=== PATIENT | male | born 1970 | race Caucasian/White ===

== ENCOUNTER 2018-06-09 09:07 | Emergency (ER) | payer SELFPAY ==
[2018-06-09] MEDS ORDERED: KETOROLAC TROMETHAMINE 60 MG/2 ML SDV IM ONE (09:57)
[2018-06-09] MEDS ORDERED: MORPHINE SULFATE 10 MG/ML INJ IM ONE (09:57)
[2018-06-09] MEDS ORDERED: ONDANSETRON 4 MG TAB.RAPDIS PO ONE (09:57)
[2018-06-09] MEDS ORDERED: ALPRAZOLAM 0.5 MG TABLET PO ONE (09:57)
--- NOTE | 2018-06-09 10:17 | ER Document Report ---
ED General Pain - General Chief Complaint: Back Pain Stated Complaint: BACK PAIN Time Seen by Provider: 06/09/18 09:26 Mode of Arrival: Ambulatory Information source: Patient TRAVEL OUTSIDE OF THE [place] IN LAST 30 DAYS: No - HPI Notes: Patient is a 47-year-old white male history of diet-controlled diabetes, hypertension and chronic lower back pain presents to the emergency department with report of worsening lower back pain over the last couple weeks. The patient states he was seen earlier this week and had a CT scan performed of his lumbar spine at [facility] in [facility] And was told they did not see anything significant, but he was told he would most likely need a follow-up MRI of his back. The patient was given a prednisone taper but denies this helping his discomfort. He reports he has been taking less methadone than normal, stating he only had one methadone today where as he normally takes 80 mg daily, and he reports only taking 40 mg yesterday and maybe had taken less the previous few days because he stated he had an upset stomach with mild nausea and diarrhea which he attributed to the prednisone. The patient also reports generalized myalgias and insomnia and worsening of his pain. He denies any incontinence. He states he has a chronic left greater than right lower extremity numbness. He denies any abdominal pain or chest pain or difficulty breathing. He denies any significant recent injury. Medications methadone and omeprazole oxycodone lisinopril hydrochlorothiazide. Patient also follows up with [facility] for psychiatric reasons. Patient also reports some recent increased stress related to his estranged moving back in with him. - Related Data Allergies/Adverse Reactions: bupropion [Bupropion] Adverse Reaction (Mild, Verified 06/09/18 09:10) eszopiclone [From Lunesta] Adverse Reaction (Mild, Verified 06/09/18 09:10) fluoxetine HCl [From Symbyax] Adverse Reaction (Mild, Verified 06/09/18 09:10) gabapentin [From Neurontin] Adverse Reaction (Mild, Verified 06/09/18 09:10) olanzapine [From Symbyax] Adverse Reaction (Mild, Verified 06/09/18 09:10) oxycodone HCl [From OxyContin] Adverse Reaction (Unknown, Verified 06/09/18 09: 10) surgical tape Adverse Reaction (Uncoded 05/13/16 23:00) Past Medical History - General Information source: Patient - Social History Smoking Status: Never Smoker Frequency of alcohol use: None Drug Abuse: None Lives with: Family Family History: None, Reviewed & Not Pertinent Patient has suicidal ideation: No Patient has homicidal ideation: No - Past Medical History Cardiac Medical History: Reports: Hx Hypercholesterolemia Pulmonary Medical History: Reports: Hx Bronchitis - chronic, Hx COPD Neurological Medical History: Reports: Hx Seizures Endocrine Medical History: Reports: Hx Diabetes Mellitus Type 1, Hx Diabetes Mellitus Type 2 Renal/ Medical History: Reports: Hx Kidney Stones. Denies: Hx Peritoneal Dialysis GI Medical History: Reports: Hx Gastroesophageal Reflux Disease Psychiatric Medical History: Reports: Hx Bipolar Disorder, Hx Depression Past Surgical History: Reports: Hx Cholecystectomy, Hx Orthopedic Surgery - spinal fusion 2001 - Immunizations Immunizations up to date: Yes Hx Diphtheria, Pertussis, Tetanus Vaccination: Yes Review of Systems - Review of Systems Notes: REVIEW OF SYSTEMS: CONSTITUTIONAL : Denies fever, chills, or sweats. EENT: Denies eye, ear, throat, or mouth pain or symptoms. Denies nasal or sinus congestion or discharge. Denies throat, tongue, or mouth swelling or difficulty swallowing. CARDIOVASCULAR: Denies chest pain. Denies palpitations or racing or irregular heart beat. Denies ankle edema. RESPIRATORY: Denies cough, cold, or chest congestion. Denies shortness of breath, difficulty breathing, or wheezing. GASTROINTESTINAL: Denies abdominal pain or distention. Denies vomiting. Denies blood in vomitus, stools, or per rectum. Denies black, tarry stools. Denies constipation. GENITOURINARY: Denies difficulty urinating, painful urination, burning, frequency, blood in urine, or discharge. MUSCULOSKELETAL: Denies neck pain or stiffness. Denies joint pain or swelling. SKIN: Denies rash, lesions or sores. HEMATOLOGIC : Denies easy bruising or bleeding. LYMPHATIC: Denies swollen, enlarged glands. NEUROLOGICAL: Denies confusion or altered mental status. Denies passing out or loss of consciousness. Denies dizziness or lightheadedness. Denies headache. Denies weakness or paralysis or loss of use of either side. Denies problems with gait or speech. Denies seizures. PSYCHIATRIC: Denies depression, suicidal ideation, or homicidal ideation. ALL OTHER SYSTEMS REVIEWED AND NEGATIVE. Dictation was performed using [employer] recognition software Physical Exam - Vital signs Vitals: Temp Pulse Resp BP Pulse Ox 98.2 F 120 H 18 137/80 H 98 06/09/18 09:15 06/09/18 09:15 06/09/18 09:15 06/09/18 09:15 06/09/18 09:15 - Notes Notes: PHYSICAL EXAMINATION: GENERAL: Well-appearing, well-nourished and in no acute distress. HEAD: Atraumatic, normocephalic. EYES: Pupils equal round and reactive to light, extraocular movements intact, sclera anicteric, conjunctiva are normal. ENT: Nares patent, oropharynx clear without exudates. Moist mucous membranes. NECK: Normal range of motion, supple without lymphadenopathy LUNGS: Breath sounds clear to auscultation bilaterally and equal. No wheezes rales or rhonchi. HEART: Regular rate and rhythm without murmurs ABDOMEN: Soft, nontender, nondistended abdomen. No guarding, no rebound. No masses appreciated. Musculoskeletal: no pitting or edema. No cyanosis. Patient has pain appreciated through the lower lumbar spine along L4 and L5 into S1. There is no bony deformity or crepitance noted. No CVA tenderness. NEUROLOGICAL: Cranial nerves grossly intact. Normal speech, normal gait. Normal motor exams. No saddle anesthesia. The patient describes sensory deficit down the left greater than right leg. PSYCH: Normal mood, normal affect. SKIN: Warm, Dry, normal turgor, no rashes or lesions noted. Course - Re-evaluation Re-evalutation: 06/09/18 12:21 Lab studies looked appropriate besides a very mild dehydration. No hyperglycemia and potassium was normal. After morphine, Toradol and Xanax, the patient had adequate relief of his discomfort. The patient already has a pain management contract and will follow up with this. He is instructed to have a follow-up outpatient MRI. There is no suggestion for cauda equina syndrome on current examination. Findings fit for narcotic withdrawal syndrome related to taking less methadone. 06/09/18 12:22 - Vital Signs Vital signs: Temp Pulse Resp BP Pulse Ox 98.2 F 120 H 18 137/80 H 98 06/09/18 09:15 06/09/18 09:15 06/09/18 09:15 06/09/18 09:15 06/09/18 09:15 - Laboratory Result Diagrams: 06/09/18 10:19 Laboratory results interpreted by me: 06/09/18 10:19 Chloride 97 L BUN 24 H ALT 87 H Discharge - Discharge Clinical Impression: Narcotic withdrawal Back pain Qualifiers: Back pain location: low back pain Chronicity: chronic Back pain laterality: midline Sciatica presence: with sciatica Sciatica laterality: sciatica of left side Qualified Code(s): M54.42 - Lumbago with sciatica, left side; G89.29 - Other chronic pain; G89.29 - Other chronic pain Condition: Stable Disposition: HOME, SELF-CARE Instructions: Low Back Pain ([facility]) Additional Instructions: Take your methadone regularly. Follow-up with Dr. Wright to arrange a MRI of the lumbar spine to better evaluate the cause of your pain and radiculopathy. You may take Imodium as needed for diarrhea. Drink plenty of fluids. Prescriptions: RX: Ibuprofen 800 mg PO Q8HP PRN #60 tablet PRN Reason: Methocarbamol [Robaxin 750 mg Tablet] 750 mg PO Q8HP PRN #30 tablet PRN Reason: Referrals: SALAS WRIGHT MD [Primary Care Provider] - Follow up as needed
[2018-06-09 11:00] LABS: ALANINE AMINOTRANSFERASE 87 U/L (21-72); ALBUMIN 4.9 g/dL (3.5-5.0); ALKALINE PHOSPHATASE 72 U/L (38-126); ANION GAP 14 (5-19); ASPARTATE AMINO TRANSFERASE 50 U/L (17-59); BILIRUBIN,DIRECT 0.2 mg/dL (0.0-0.4); BILIRUBIN,TOTAL 1.1 mg/dL (0.2-1.3); BLOOD UREA NITROGEN 24 mg/dL (7-20); CALCIUM 9.9 mg/dL (8.4-10.2); CARBON DIOXIDE 26 mmol/L (22-30); CHLORIDE 97 mmol/L (98-107); GLUCOSE 98 mg/dL (75-110); POTASSIUM 4.1 mmol/L (3.6-5.0); SODIUM 137.2 mmol/L (137-145)
[2018-06-09] MEDS ORDERED: LIDOCAINE 5% (700 MG) TRANSDERMAL ADH..PATCH TP ONE (12:55)
[2018-06-09 13:02] VITALS: BP 111/64
== END 2018-06-09 13:02 | disposition home or self-care (01) ==
LOC: ER 09:07
DX: F11.23 Opioid dependence with withdrawal (principal); G89.29 Other chronic pain; M54.5 Low back pain; E11.9 Type 2 diabetes mellitus without complications; I10 Essential (primary) hypertension; E78.00 Pure hypercholesterolemia, unspecified; Z87.442 Personal history of urinary calculi; Z90.49 Acquired absence of other specified parts of digestive tract
CPT/HCPCS: 99284; 96372; 36415; 80053; J1885; S0119; J2270

== ENCOUNTER 2018-07-07 17:24 | Emergency (ER) | payer SELFPAY ==
[2018-07-07] MEDS ORDERED: KETOROLAC TROMETHAMINE 60 MG/2 ML SDV IM ONE (19:13)
[2018-07-07] MEDS ORDERED: DEXAMETHASONE SOD PHOS INJ 10 MG/1 ML VIAL IM ONE (19:13)
--- NOTE | 2018-07-07 19:13 | ER Document Report ---
ED Neck/Back Problem - General Chief Complaint: Back Pain Stated Complaint: BACK PAIN Time Seen by Provider: 07/07/18 19:03 Mode of Arrival: Ambulatory Information source: Patient Notes: 47-year-old male presented ED for complaint of spine and back pain. He claims he has a long history of chronic back pain. He states his been much worse for the last couple months. He states he has spinal stenosis after his back surgery. He came to seek medical attention for this worsening back pain today. He denies any recent injuries or falls. He claims he takes methadone for chronic pain with no relief. Patient was alert oriented respirations regular and unlabored speaking in full sentences and able to walk with a steady gait. He denies any loss of control of bowel bladder or any saddle anesthesia. TRAVEL OUTSIDE OF THE [place] IN LAST 30 DAYS: No - HPI Patient complains to provider of: Lower back Onset: Other - Chronic worse over the last couple days Onset: Chronic Timing: Still present Quality of pain: Burning, Sharp, Throbbing Severity: Severe Pain Level: 5 Recent injury: No Associated symptoms: Radiation to leg, Upper back pain - Related Data Allergies/Adverse Reactions: bupropion [Bupropion] Adverse Reaction (Mild, Verified 06/09/18 09:10) eszopiclone [From Lunesta] Adverse Reaction (Mild, Verified 06/09/18 09:10) fluoxetine HCl [From Symbyax] Adverse Reaction (Mild, Verified 06/09/18 09:10) gabapentin [From Neurontin] Adverse Reaction (Mild, Verified 06/09/18 09:10) olanzapine [From Symbyax] Adverse Reaction (Mild, Verified 06/09/18 09:10) oxycodone HCl [From OxyContin] Adverse Reaction (Unknown, Verified 06/09/18 09: 10) surgical tape Adverse Reaction (Uncoded 05/13/16 23:00) Past Medical History - Social History Smoking Status: Unknown if Ever Smoked Family History: None, Reviewed & Not Pertinent Patient has suicidal ideation: No Patient has homicidal ideation: No - Past Medical History Cardiac Medical History: Reports: Hx Hypercholesterolemia Pulmonary Medical History: Reports: Hx Bronchitis - chronic, Hx COPD Neurological Medical History: Reports: Hx Seizures Endocrine Medical History: Reports: Hx Diabetes Mellitus Type 1, Hx Diabetes Mellitus Type 2 Renal/ Medical History: Reports: Hx Kidney Stones. Denies: Hx Peritoneal Dialysis GI Medical History: Reports: Hx Gastroesophageal Reflux Disease Psychiatric Medical History: Reports: Hx Bipolar Disorder, Hx Depression Past Surgical History: Reports: Hx Cholecystectomy, Hx Orthopedic Surgery - spinal fusion 2001 - Immunizations Immunizations up to date: Yes Hx Diphtheria, Pertussis, Tetanus Vaccination: Yes Physical Exam - Vital signs Vitals: Temp Pulse Resp BP Pulse Ox 97.7 F 80 18 104/79 98 07/07/18 17:39 07/07/18 17:39 07/07/18 17:39 07/07/18 17:39 07/07/18 17:39 Course - Vital Signs Vital signs: Temp Pulse Resp BP Pulse Ox 97.8 F 69 16 113/87 H 95 07/07/18 20:20 07/07/18 20:20 07/07/18 20:20 07/07/18 20:20 07/07/18 20:20 Discharge - Discharge Clinical Impression: Low back pain Qualifiers: Chronicity: chronic Back pain laterality: bilateral Sciatica presence: unspecified whether sciatica present Qualified Code(s): M54.5 - Low back pain; G89.29 - Other chronic pain; G89.29 - Other chronic pain Condition: Stable Disposition: HOME, SELF-CARE Additional Instructions: Chronic Back Pain Chronic back pain (pain persisting longer than three months) is a common problem. A medical evaluation can look for herniated disc, arthritis, osteoporosis, tumors, and infections. But at least half the time, there's no obvious treatable cause. Anxiety and depression tend to worsen back pain. Ibuprofen or other anti-inflammatory medicine can help. A heating pad, used for 15-20 minutes at a time, can ease pain. For this type of back pain, narcotic medicines should be avoided. Muscle relaxers are rarely helpful unless you're having spasms. Activity is important. Find an aerobic exercise program that your back can tolerate. Too much rest makes back pain worse. Specific back exercises are usually prescribed to strengthen the back and abdominal muscles. Often, a physical therapist can help. Avoid heavy lifting, working while bent over, or standing with both knees straight. Most back pain patients do better with a firm mattress. If new symptoms of a "herniated disc" (radiation of pain, numbness, or tingling down the back of the leg or weakness in the leg) occur, you should be re-examined. Chronic Pain Control Stress, inactivity, and depression make pain more severe regardless of the cause of the pain. Stress and poor physical condition can cause pain such as headaches and backache. Relaxation: Rest in a quiet place with your eyes closed for 20 minutes twice daily. Concentrate on a pleasant image, or simply "feel" your breathing. Clear your mind. Stress management: Deal with your "stressors." Either take action, or eliminate the stressor from your life. Don't let things hang over you. Accept those things you can't change. Nutrition: Eat small, balanced meals -- don't skip, don't overeat. Meals should be high-carbohydrate, low-sugar, low-fat. Exercise: Exercise helps painful conditions and eases stress. Get 30 minutes of moderate exercise, five days a week. Do an activity that does not flare your pain. Precautions: Pain which continues to disrupt daily activities, or which changes in nature, requires a medical evaluation. Pain Clinic referral is available. We do not manage chronic pain in the Emergency Department. We will try to appropriately help you through an acute flare of your chronic painful condition , but for on-going chronic pain that does not improve, you will need to see your private doctor or chest painting and sealing supervisor. We do not provide repeated medication management of chronic painful conditions. If you wish, we can provide the name of local pain management physicians. Toradol Injection You have been given an injection of ketorolac tromethamine (Toradol). This is an excellent, safe drug for pain control. It also has potent antiinflammatory action. You should have significant pain relief within about one hour. Toradol is not addicting and is non-sedating. It does not interfere with driving or work. Call or return if you develop itching, hives, shortness of breath, or rash. STEROID MEDICATION: You have been given an injection of medicine of the cortisone/steroid class. This medication is used to control inflammation or allergy. It is often continued as a pill for a short period of time, until the acute process subsides. There are usually no side effects from short-term use of cortisone-like medications. Some persons feel an increased sense of well-being and are not sleepy at bedtime. Long-term use of cortisone medications is best avoided, unless required for a severe condition. If your condition does not remit, or relapses after the course of corticosteroid medication, you should consult your physician. FOLLOW-UP CARE: If you have been referred to a physician for follow-up care, call the physician s office for an appointment as you were instructed or within the next two days. If you experience worsening or a significant change in your symptoms, notify the physician immediately or return to the Emergency Department at any time for re-evaluation. Prescriptions: Cyclobenzaprine HCl [Flexeril 10 mg Tablet] 10 mg PO TIDP PRN #15 tab PRN Reason: Forms: Elevated Blood Pressure Referrals: SALAS WRIGHT MD [Primary Care Provider] - Follow up as needed
[2018-07-07] MEDS ORDERED: CYCLOBENZAPRINE HCL 10 MG TABLET PO ONE (19:23)
[2018-07-07 20:22] VITALS: BP 113/87
== END 2018-07-07 20:21 | disposition home or self-care (01) ==
LOC: ER 17:24
DX: M54.5 Low back pain (principal); G89.29 Other chronic pain; Z98.890 Other specified postprocedural states; Z79.899 Other long term (current) drug therapy; Z79.891 Long term (current) use of opiate analgesic; J44.9 Chronic obstructive pulmonary disease, unspecified; E11.9 Type 2 diabetes mellitus without complications
CPT/HCPCS: 99283; 96372; J1885; J1100

== ENCOUNTER 2019-01-23 01:33 | Emergency (ER) | payer MEDICAID ==
[2019-01-23 01:47] VITALS: BP 149/98
[2019-01-23] MEDS ORDERED: KETOROLAC TROMETHAMINE 60 MG/2 ML SDV IM ONE (03:32)
[2019-01-23] MEDS ORDERED: METOCLOPRAMIDE HCL INJ/PF 10 MG/2 ML SDV IM ONE (03:33)
[2019-01-23] MEDS ORDERED: DIPHENHYDRAMINE HCL 25 MG CAPSULE PO ONE (03:33)
[2019-01-23] MEDS ORDERED: LIDOCAINE 2% VISCOUS SOLN 20 ML UDCUP PO ONE (03:34)
--- NOTE | 2019-01-23 03:36 | ER Document Report ---
HPI - HPI Patient complains to provider of: broken tooth Time Seen by Provider: 01/23/19 03:23 Pain Level: 5 Context: 48-year-old male presents to the emergency department after tripping and breaking a tooth. He states he was carrying some wood earlier this afternoon and lost his balance and fell and broke 4 teeth. He states the 11 tooth is causing excruciating pain. He states it is causing a severe headache and he is nauseated. He is seeking relief. He has a dentist. He has no other complaints - CONSTITUTIONAL Constitutional: DENIES: Fever, Chills - EENT EENT: DENIES: Sore Throat, Ear Pain, Eye problems - NEURO Neurology: REPORTS: Headache. DENIES: Weakness, Vision blurred, Dizzinesss / Vertigo - CARDIOVASCULAR Cardiovascular: DENIES: Chest pain - RESPIRATORY Respiratory: DENIES: Trouble Breathing, Coughing - GASTROINTESTINAL Gastrointestinal: DENIES: Abdominal Pain, Black / Bloody Stools - URINARY Urinary: DENIES: Dysuria, Urgency, Frequency - REPRODUCTIVE Reproductive: DENIES: :, Postmenopausal, Abnormal bleeding / discharge - MUSCULOSKELETAL Musculoskeletal: DENIES: Extremity pain - DERM Skin Color: Normal, [place] Past Medical History - Social History Smoking Status: Never Smoker Chew tobacco use (# tins/day): No Frequency of alcohol use: None Drug Abuse: None Family History: None, Reviewed & Not Pertinent Patient has suicidal ideation: No Patient has homicidal ideation: No - Past Medical History Cardiac Medical History: Reports: Hx Hypercholesterolemia Pulmonary Medical History: Reports: Hx Bronchitis - chronic, Hx COPD Neurological Medical History: Reports: Hx Seizures Endocrine Medical History: Reports: Hx Diabetes Mellitus Type 1, Hx Diabetes Mellitus Type 2 Renal/ Medical History: Reports: Hx Kidney Stones. Denies: Hx Peritoneal Dialysis GI Medical History: Reports: Hx Gastroesophageal Reflux Disease Psychiatric Medical History: Reports: Hx Bipolar Disorder, Hx Depression Past Surgical History: Reports: Hx Cholecystectomy, Hx Orthopedic Surgery - spinal fusion 2001 - Immunizations Immunizations up to date: Yes Hx Diphtheria, Pertussis, Tetanus Vaccination: Yes Vertical Provider Document - INFECTION CONTROL TRAVEL OUTSIDE OF THE [place] IN LAST 30 DAYS: No - HEENT HEENT: Atraumatic, Normocephalic Mouth Diagram: 1 - Poor dentition, tooth is fractured on the lingual side dentin exposed. - NECK Neck: Normal Inspection, Supple. negative: Lymphadenopathy-Left, Lymphadenopathy-Right Course - Re-evaluation Re-evalutation: 01/23/19 03:31 48-year-old male appears comfortable but is complaining of severe tooth pain. Also complaining of a severe headache. Will give a migraine cocktail and give him topical lidocaine. - Vital Signs Vital signs: Temp Pulse Resp BP Pulse Ox 97 F L 72 16 149/98 H 100 01/23/19 01:46 01/23/19 01:46 01/23/19 01:46 01/23/19 01:46 01/23/19 01:46 Discharge - Discharge Clinical Impression: Broken tooth Qualifiers: Encounter type: initial encounter Fracture type: closed Qualified Code(s): S02.5XXA - Fracture of tooth (traumatic), initial encounter for closed fracture Headache Qualifiers: Headache type: unspecified Headache chronicity pattern: acute headache Intractability: not intractable Qualified Code(s): R51 - Headache Condition: Good Disposition: HOME, SELF-CARE Additional Instructions: You have been seen for dental pain. It is very important that you follow-up with a dentist for definitive care. Please return if you develop fever greater than 101, swelling in your face, vomiting, difficulty breathing or swallowing, or any other symptoms that are concerning to you. For pain you should take ibuprofen 600 mg every 6 hours as needed. Prescriptions: Benzonatate [Tessalon Perles 100 mg Capsule] 100 mg PO Q8HP PRN #40 capsule PRN Reason: Referrals: SALAS WRIGHT MD [Primary Care Provider] - Follow up as needed
== END 2019-01-23 04:21 | disposition home or self-care (01) ==
LOC: ER 01:33
DX: S02.5XXA Fracture of tooth (traumatic), initial encounter for closed fracture (principal); R51 Headache; R11.0 Nausea; W19.XXXA Unspecified fall, initial encounter; J44.9 Chronic obstructive pulmonary disease, unspecified
CPT/HCPCS: 99283; 96372; J3490 ×2; J1885; J2765

== ENCOUNTER 2020-09-05 09:17 | Inpatient (IN) | payer MEDICAID ==
[2020-09-05] MEDS ORDERED: NORMAL SALINE 1000 ML 1,000 ML IV ONE (10:39)
[2020-09-05 10:41] LABS: ABSOLUTE BASOPHILS # (AUTO) 0.1 10^3/uL (0.0-0.2); ABSOLUTE LYMPHOCYTES (AUTO) 2.6 10^3/uL (0.5-4.7); ABSOLUTE MONOCYTES (AUTO) 0.9 10^3/uL (0.1-1.4); ABSOLUTE NEUT (AUTO) 7.6 10^3/uL (1.7-8.2); BASOPHILS % (AUTO) 0.8 % (0-2); EOSINOPHILS % (AUTO) 0.3 % (0-6); HEMATOCRIT 47.4 % (37.9-51.0); HEMOGLOBIN 16.9 g/dL (13.5-17.0); LYMPHOCYTES % (AUTO) 23.3 % (13-45); MEAN CORPUSCULAR HEMOGLOBIN 33.6 pg (27.0-33.4); MEAN CORPUSCULAR HGB CONC 35.7 g/dL (32.0-36.0); MEAN CORPUSCULAR VOLUME 94 fl (80-97); PLATELET COUNT 471 10^3/uL (150-450); RED BLOOD COUNT 5.04 10^6/uL (4.35-5.55); RED CELL DISTRIBUTION WIDTH 13.4 % (11.5-14.0); SEGMENTED NEUTROPHILS % (AUTO) 67.6 % (42-78); TOTAL CELLS COUNTED % (AUTO) 100 %; WHITE BLOOD COUNT 11.2 10^3/uL (4.0-10.5)
[2020-09-05 10:41] LABS: APPEARANCE,URINE CLEAR; BILIRUBIN,URINE NEGATIVE (NEGATIVE); COLOR,URINE STRAW; GLUCOSE, URINE >=500 mg/dL (NEGATIVE); KETONES,URINE 20 mg/dL (NEGATIVE); LEUKOCYTE ESTERASE,URINE NEGATIVE (NEGATIVE); NITRITE,URINE NEGATIVE (NEGATIVE); PROTEIN,URINE NEGATIVE (NEGATIVE); URINE SPECIFIC GRAVITY 1.027; UROBILINOGEN,URINE NEGATIVE mg/dL (<2.0)
[2020-09-05 11:24] LABS: ALBUMIN 4.9 g/dL (3.5-5.0); ALKALINE PHOSPHATASE 134 U/L (38-126); ASPARTATE AMINO TRANSFERASE 80 U/L (17-59); BILIRUBIN,DIRECT 0.4 mg/dL (0.0-0.4); BILIRUBIN,TOTAL 1.3 mg/dL (0.2-1.3); BLOOD UREA NITROGEN 17 mg/dL (7-20); CALCIUM 9.8 mg/dL (8.4-10.2); CHLORIDE 77 mmol/L (98-107); POTASSIUM 4.7 mmol/L (3.6-5.0); TOTAL PROTEIN 8.2 g/dL (6.3-8.2)
[2020-09-05 11:36] LABS: CARBON DIOXIDE 5 mmol/L (22-30); GLUCOSE 916 mg/dL (75-110)
[2020-09-05] MEDS ORDERED: NORMAL SALINE 100 ML with INSULIN REGULAR, HUMAN 100 UNIT IV PRN ×4 (11:39→14:45)
[2020-09-05] MEDS ORDERED: NORMAL SALINE IV ONE (11:39)
[2020-09-05 11:41] LABS: ANION GAP 33 (5-19)
[2020-09-05] MEDS ORDERED: INSULIN REG, HUMAN 100 UNIT/ML 3 ML VIAL (PYX) ONE (11:47)
[2020-09-05] MEDS ORDERED: MORPHINE SULFATE 10 MG/ML INJ IV ONE (11:48)
[2020-09-05] MEDS ORDERED: ONDANSETRON HCL INJ/PF 4 MG/2 ML SDV IV ONE (11:48)
--- NOTE | 2020-09-05 12:32 | RADIOLOGY REPORT (SQ) ---
EXAM DESCRIPTION: CT ABD/PELVIS NO ORAL OR IV IMAGES COMPLETED DATE/TIME: 09/05/2020 12:00 pm REASON FOR STUDY: severe periumbilical pain COMPARISON: 08/19/2015. TECHNIQUE: CT scan of the abdomen and pelvis performed without intravenous or oral contrast. Images reviewed with lung, soft tissue, and bone windows. Reconstructed coronal and sagittal MPR images revi ewed. All images stored on PACS. All CT scanners at this facility use dose modulation, iterative reconstruction, and/or weight based d osing when appropriate to reduce radiation dose to as low as reasonably achievable (ALARA). [facility]: Dose Right [facility]: CareDose [facility]: Dose Right [facility]: Teradose 4D [facility]: [place] RADIATION DOSE: CT Rad equipment meets quality standard of care and radiation dose reduction techniq ues were employed. CTDIvol: 11.9 mGy. DLP: 740 mGy-cm.mGy. LIMITATIONS: None. FINDINGS: LOWER CHEST: No significant findings. No nodules or infiltrates. NON-CONTRASTED LIVER, SPLEEN, ADRENALS: Evaluation limited by lack of IV contrast. No identified sign ificant masses. PANCREAS: No masses. No peripancreatic inflammatory changes. GALLBLADDER: Surgically absent. RIGHT KIDNEY AND URETER: No suspicious masses. Assessment limited by lack of IV contrast. No signif icant calcifications. No hydronephrosis or hydroureter. LEFT KIDNEY AND URETER: No suspicious masses. Assessment limited by lack of IV contrast. No signifi cant calcifications. No hydronephrosis or hydroureter. AORTA AND RETROPERITONEUM: No aneurysm. No retroperitoneal masses or adenopathy. BOWEL AND PERITONEAL CAVITY: No obvious masses or inflammatory changes. No free fluid. APPENDIX: Normal. PELVIS, BLADDER, AND ABDOMINAL WALL:No abnormal masses. No free fluid. Bladder normal. BONES: No significant findings. Surgical changes in the lower lumbar spine with hardware. OTHER: No other significant finding. IMPRESSION: NO SIGNIFICANT OR ACUTE PROCESS IN THE ABDOMEN OR PELVIS. COMMENT: Quality ID # [id number]: Final reports with documentation of one or more dose reduction techniques (e.g., Automated exposure control, adjustment of the mA and/or kV according to patient size, use of iterative reconstruction technique) TECHNICAL DOCUMENTATION: JOB ID: [id number] 2010 [employer]- All Rights Reserved Reading location - IP/workstation name: [email or web address]
[2020-09-05 13:49] LABS: INTERNATIONAL RATION (INR) 1.05
--- NOTE | 2020-09-05 14:04 | ER Document Report ---
ED Blood Sugar Problem - General Chief Complaint: High Blood Sugar Stated Complaint: HIGH BLOOD SUGAR Time Seen by Provider: 09/05/20 11:37 Primary Care Provider: SALAS WRIGHT MD [Primary Care Provider] - Follow up as needed Mode of Arrival: Ambulatory Information source: Patient TRAVEL OUTSIDE OF THE [place] IN LAST 30 DAYS: No - HPI Notes: Patient presents complaining of several days of severe nausea vomiting abdominal pain. He states that he recently stopped his Metformin because he felt that he did no longer needed to take it. His abdominal pain is severe and crampy. Is bilateral lower quadrant mainly. It does radiate across both sides the lower quadrant is worse with movement and better with rest. It is severe and constant. - Related Data Allergies/Adverse Reactions: bupropion [Bupropion] Adverse Reaction (Mild, Verified 09/05/20 09:50) eszopiclone [From Lunesta] Adverse Reaction (Mild, Verified 09/05/20 09:50) fluoxetine HCl [From Symbyax] Adverse Reaction (Mild, Verified 09/05/20 09:50) gabapentin [From Neurontin] Adverse Reaction (Mild, Verified 09/05/20 09:50) olanzapine [From Symbyax] Adverse Reaction (Mild, Verified 09/05/20 09:50) oxycodone HCl [From OxyContin] Adverse Reaction (Unknown, Verified 09/05/20 09:50) surgical tape Adverse Reaction (Uncoded 09/05/20 09:50) Past Medical History - General Information source: Patient - Social History Smoking Status: Former Smoker Chew tobacco use (# tins/day): No Frequency of alcohol use: None Drug Abuse: None Family History: None, Reviewed & Not Pertinent Patient has homicidal ideation: No - Past Medical History Cardiac Medical History: Reports: Hx Hypercholesterolemia Pulmonary Medical History: Reports: Hx Bronchitis - chronic, Hx COPD Neurological Medical History: Reports: Hx Seizures Endocrine Medical History: Reports: Hx Diabetes Mellitus Type 1, Hx Diabetes Mellitus Type 2 Renal/ Medical History: Reports: Hx Kidney Stones. Denies: Hx Peritoneal Dialysis GI Medical History: Reports: Hx Gastroesophageal Reflux Disease Psychiatric Medical History: Reports: Hx Bipolar Disorder, Hx Depression Past Surgical History: Reports: Hx Cholecystectomy, Hx Orthopedic Surgery - spinal fusion 2001 - Immunizations Immunizations up to date: Yes Hx Diphtheria, Pertussis, Tetanus Vaccination: Yes Review of Systems - Review of Systems Constitutional: Malaise, Weakness Cardiovascular: denies: Chest pain, Palpitations Respiratory: denies: Cough, Short of breath -: Yes All other systems reviewed and negative Physical Exam - Vital signs Vitals: Temp 97.4 F 09/05/20 09:53 Interpretation: Tachycardic - General General appearance: Alert In distress: Mild - HEENT Head: Normocephalic, Atraumatic Eyes: Normal Pupils: PERRL - Respiratory Respiratory status: No respiratory distress Chest status: Nontender Breath sounds: Normal Chest palpation: Normal - Cardiovascular Rhythm: Tachycardia Heart sounds: Normal auscultation Murmur: No - Abdominal Inspection: Normal Distension: No distension Tenderness: Tender - Some moderate diffuse tenderness bilateral lower quadrants. There is no masses. Patient does have some firmness to the umbilicus on deep palpation which is questionable for a small umbilical hernia. Organomegaly: No organomegaly - Back Back: Normal, Nontender - Extremities General upper extremity: Normal inspection, Nontender, Normal color, Normal ROM, Normal temperature General lower extremity: Normal inspection, Nontender, Normal color, Normal ROM, Normal temperature, Normal weight bearing. No: Judy's sign - Neurological Neuro grossly intact: Yes Cognition: Normal Orientation: AAOx4 [place] Coma Scale Eye Opening: Spontaneous [place] Coma Scale Verbal: Oriented [place] Coma Scale Motor: Obeys Commands [place] Coma Scale Total: 15 Speech: Normal Motor strength normal: LUE, RUE, LLE, RLE Sensory: Normal - Psychological Associated symptoms: Normal affect, Normal mood - Skin Skin Temperature: Warm Skin Moisture: Dry Skin Color: Normal Course - Re-evaluation Re-evalutation: 09/05/20 14:02 Patient presents with severe abdominal pain nausea vomiting. Patient is in obvi ous diabetic ketoacidosis with pseudohyponatremia. Patient will be resuscitated with fluids nausea medicine pain medicine as well as insulin drip. He will go to the intensive care unit. - Vital Signs Vital signs: Temp Pulse Resp BP Pulse Ox 97.4 F 16 123/91 H 97 09/05/20 09:53 09/05/20 13:01 09/05/20 13:01 09/05/20 13:01 - Laboratory Result Diagrams: 09/05/20 10:29 09/05/20 10:29 Laboratory results interpreted by me: 10/09/05/20 09/05/20 09:59 10:29 10:29 WBC 11.2 H MCH 33.6 H Plt Count 471 H Sodium 114.5 L* Chloride 77 L Carbon Dioxide 5 L* Anion Gap 33 H Glucose 916 H* Lactic Acid AST 80 H ALT 135 H Alkaline Phosphatase 134 H Urine Glucose (UA) >=500 H Urine Ketones 20 H 09/05/20 10:29 WBC MCH Plt Count Sodium Chloride Carbon Dioxide Anion Gap Glucose Lactic Acid 3.3 H AST ALT Alkaline Phosphatase Urine Glucose (UA) Urine Ketones - Diagnostic Test Radiology reviewed: Image reviewed, Reports reviewed - EKG Interpretation by Me EKG shows normal: Sinus rhythm Rate: Tachycardia - 105 Rhythm: NSR [place]/QRS: Right axis deviation Critical Care Note - Critical Care Note Total time excluding time spent on procedures (mins): 50 Comments: Approximately 50 minutes of critical care time were spent taking care of this patient with diabetic ketoacidosis and pseudohyponatremia. This time spent doing multiple reassessments. No spent discussing with family. It was spent discussing with business consultant. It was spent reviewing imaging and laboratory values. Discharge - Discharge Clinical Impression: DKA (diabetic ketoacidoses) Qualifiers: Diabetes mellitus type: type 2 Diabetes mellitus complication detail: without coma Qualified Code(s): E11.10 - Type 2 diabetes mellitus with ketoacidosis without coma Condition: Serious Disposition: ADMITTED INPATIENT Admitting Provider: Fabian (Filter Tender) Unit Admitted: ICU Referrals: SALAS WRIGHT MD [Primary Care Provider] - Follow up as needed
[2020-09-05] MEDS ORDERED: DEXTROSE 50%-WATER 25 GM/50 ML DISP.SYRIN IV PRN ×4 (14:45)
[2020-09-05] MEDS ORDERED: GLUCAGON,HUMAN RECOMB 1 MG INJ IM PRN (14:45)
[2020-09-05] MEDS ORDERED: GLUCAGON,HUMAN RECOMB 1 MG INJ SUBCUT PRN (14:45)
[2020-09-05] MEDS ORDERED: DEXTROSE 40% GEL 15 GM TUBE PO PRN ×4 (14:45)
[2020-09-05 15:56] LABS: URINE BARBITURATES SCREEN NEGATIVE; URINE BENZODIAZEPINES SCREEN NEGATIVE; URINE COCAINE SCREEN NEGATIVE; URINE PHENCYCLIDINE SCREEN NEGATIVE
[2020-09-05 15:59] LABS: URINE AMPHETAMINES SCREEN NEGATIVE
[2020-09-05 16:03] LABS: URINE METHADONE SCREEN NEGATIVE
[2020-09-05 16:04] LABS: VENOUS BLOOD BASE EXCESS -10.1 mmol/L; VENOUS BLOOD HCO3 15.2 mmol/L (20-32); VENOUS BLOOD PCO2 33.7 mmHg (35-63); VENOUS BLOOD PH 7.27 (7.30-7.42)
[2020-09-05 16:06] LABS: URINE MARIJUANA (THC) SCREEN UNCONFIRMED POSITIVE
[2020-09-05 16:09] LABS: BLOOD UREA NITROGEN 13 mg/dL (7-20); CALCIUM 8.9 mg/dL (8.4-10.2); CREATINE KINASE 51 U/L (55-170); POTASSIUM 4.3 mmol/L (3.6-5.0)
[2020-09-05 16:14] LABS: CARBON DIOXIDE 13 mmol/L (22-30); CHLORIDE 89 mmol/L (98-107)
[2020-09-05 16:20] LABS: ANION GAP 20 (5-19)
[2020-09-05 16:24] LABS: GLUCOSE 519 mg/dL (75-110)
[2020-09-05] MEDS: METHADONE HCL 10 MG TABLET PO PRN (18:39)
[2020-09-05 18:53] LABS: BLOOD UREA NITROGEN 10 mg/dL (7-20); CALCIUM 9.1 mg/dL (8.4-10.2); CARBON DIOXIDE 14 mmol/L (22-30); CHLORIDE 91 mmol/L (98-107); GLUCOSE 376 mg/dL (75-110)
[2020-09-05 18:56] LABS: ANION GAP 20 (5-19)
[2020-09-05 18:59] LABS: ARTERIAL BLOOD BASE EXCESS -7.1 mmol/L; ARTERIAL BLOOD FIO2 ROOM AIR; ARTERIAL BLOOD H2CO3 0.98 mmol/L (1.05-1.35); ARTERIAL BLOOD HCO3 17.4 mmol/L (20-24); ARTERIAL BLOOD O2 SATURATION 97.7 % (94-98); ARTERIAL BLOOD PCO2 32.7 mmHg (35-45); ARTERIAL BLOOD PH 7.34 (7.35-7.45); ARTERIAL BLOOD TOTAL CO2 18.4 mmol/L (23-27)
[2020-09-05] MEDS: NORMAL SALINE 1000 ML 1,000 ML IV PRN (19:20)
--- NOTE | 2020-09-05 19:25 | CRITICAL CARE ADMISSION REPORT ---
HPI Date:: 09/05/20 Time:: 14:26 Reason for ICU Reason:: Diabetic ketoacidosis Admission Date/Time & PCP: Admission Date/Time: 09/05/20 14:11 Primary Care Provider: SALAS WRIGHT HPI: This 49-year-old male reformed smoker is seen in the emergency department, where the patient presented with complaints of severe nausea, vomiting and abdominal pain. He is a known type II diabetic. He has had a similar clinical presentation before, approximately 10 years ago, when he was first diagnosed with uncontrolled diabetes. The patient had a successful treatment course for his diabetes that included insulin and Metformin. He had significant weight loss and improvement in his glucose control, which allowed him to use Metformin alone for his diabetes regimen. In fact, the patient admits that he insisted to his doctor that he was "cured" of diabetes. He was advised that this was not the case. Nonetheless, the patient discontinued Metformin almost 2 years ago. He has a history of chronic pain secondary to back injury. He was established with the pain clinic and now receives methadone refills from his primary care provider. History obtained from:: Patient - Diagnosis/Plan (1) DKA (diabetic ketoacidoses) Qualifiers: Diabetes mellitus type: type 2 Diabetes mellitus complication detail: without coma Qualified Code(s): E11.10 - Type 2 diabetes mellitus with ke toacidosis without coma Is this a current diagnosis for this admission?: Yes Plan: N.p.o. except free water and methadone. IV fluids. Start with normal saline at 500 mL/h. Insulin infusion. Serial labs. Repeat ABG. (2) Umbilical hernia Is this a current diagnosis for this admission?: Yes (3) Chronically on opiate therapy Is this a current diagnosis for this admission?: Yes Plan: We will need to determine his home methadone dose and continue. Past Medical History Cardiac Medical History: Reports: Hyperlipidema Pulmonary Medical History: Reports: Bronchitis - chronic, Chronic Obstructive Pulmonary Disease (COPD) Neurological Medical History: Reports: Seizures Endocrine Medical History: Reports: Diabetes Mellitus Type 1, Diabetes Mellitus Type 2 GI Medical History: Reports: Gastroesophageal Reflux Disease Psychiatric Medical History: Reports: Bipolar Disorder, Depression Past Surgical History Past Surgical History: Reports: Cholecystectomy, Orthopedic Surgery - spinal fusion 2001 Social/Family History - Social History Smoking Status: Former Smoker Frequency of Alcohol Use: None Hx Recreational Drug Use: No Hx Prescription Drug Abuse: No - Medication/Allergies Home Medications: Esomeprazole Mag Trihydrate [Nexium] 40 mg PO QAM 11/13/11 Lamotrigine [Lamictal 100 mg Tablet] 200 mg PO Q12 #0 tablet 08/18/15 Paroxetine HCl [Paxil 20 mg Tablet] 60 mg PO QHS #0 tablet 08/18/15 Cyclobenzaprine HCl [Flexeril 10 mg Tablet] 10 mg PO TIDP PRN #15 tab 07/07/18 Benztropine Mesylate [Cogentin 1 mg Tablet] 1 tab PO BID 09/05/20 Budesonide/Formoterol Fumarate [Symbicort Hfa 160-4.5 Mcg Inhaler 6 gm] 2 puff IH Q12 09/05/20 Dextroamphetamine/Amphetamine [Adderall 10 mg Tablet] 40 mg PO BID 09/05/20 Diclofenac Sodium 2 gm TP BID 09/05/20 Ergocalciferol (Vitamin D2) [Vitamin D2] 50,000 unit PO Q7D 09/05/20 Ibuprofen [Motrin 800 mg Tablet] 800 mg PO Q8HP PRN 09/05/20 Lisinopril/Hydrochlorothiazide [Lisinopril-Hctz 10-12.5 mg Tab] 1 each PO DAILY 09/05/20 Loratadine [Claritin 10 mg Tablet] 10 mg PO DAILY 09/05/20 Methadone HCl [Dolophine 10 Mg Tablet] 20 mg PO Q6HP PRN 09/05/20 Oxcarbazepine 450 mg PO BID 09/05/20 Propranolol HCl [Inderal 20 mg Tablet] 20 mg PO TID 09/05/20 Risperidone [Risperdal 1 mg Tablet] 3 mg PO BID 09/05/20 Zolpidem Tartrate [Ambien Cr] 12.5 mg PO QHS 09/05/20 Allergies/Adverse Reactions: bupropion [Bupropion] Adverse Reaction (Mild, Verified 09/05/20 09:50) eszopiclone [From Lunesta] Adverse Reaction (Mild, Verified 09/05/20 09:50) fluoxetine HCl [From Symbyax] Adverse Reaction (Mild, Verified 09/05/20 09:50) gabapentin [From Neurontin] Adverse Reaction (Mild, Verified 09/05/20 09:50) olanzapine [From Symbyax] Adverse Reaction (Mild, Verified 09/05/20 09:50) oxycodone HCl [From OxyContin] Adverse Reaction (Unknown, Verified 09/05/20 09: 50) surgical tape Adverse Reaction (Uncoded 09/05/20 09:50) Review of Systems Constitutional: ABSENT: fever(s), headache(s), night sweats, weakness, weight loss Eyes: ABSENT: visual disturbances Nose, Mouth, and Throat: ABSENT: headache(s), mouth pain, sore throat Cardiovascular: ABSENT: chest pain, dyspnea on exertion, orthropnea, palpitations Respiratory: ABSENT: cough, dyspnea, hemoptysis, sputum Gastrointestinal: PRESENT: abdominal pain, dysphagia, heartburn, nausea, vomiting, other - Umbilical hernia. ABSENT: coffee ground emesis, diarrhea Genitourinary: ABSENT: dysuria, hematuria Musculoskeletal: PRESENT: back pain. ABSENT: joint swelling, muscle weakness Integumentary: ABSENT: lesions, pruritus, rash Neurological: ABSENT: abnormal gait, abnormal speech, confusion, dizziness, focal weakness, syncope Psychiatric: ABSENT: anxiety, depression, homidical ideation, suicidal ideation Endocrine: PRESENT: polydipsia, polyuria. ABSENT: cold intolerance, heat intole bonita Physical Exam Vital Signs: Temp Pulse Resp BP Pulse Ox 97.4 F 16 123/91 H 97 09/05/20 09:53 09/05/20 13:01 09/05/20 13:01 09/05/20 13:01 Intake & Output 09/04/20 09/05/20 09/06/20 06:59 06:59 06:59 Intake Total 1000 Balance 1000 Weight 96.162 kg Weight/Height Weight 96.162 kg Height 1.88 m General appearance: PRESENT: no acute distress, well-developed, well-nourished Head exam: PRESENT: atraumatic, normocephalic Eye exam: PRESENT: conjunctiva pink, EOMI, PERRLA. ABSENT: scleral icterus Mouth exam: PRESENT: dry mucosa, tongue midline Neck exam: ABSENT: carotid bruit, JVD, lymphadenopathy, thyromegaly Respiratory exam: PRESENT: clear to auscultation ariadne. ABSENT: rales, rhonchi, wheezes Cardiovascular exam: PRESENT: RRR. ABSENT: diastolic murmur, rubs, systolic murmur Pulses: PRESENT: normal dorsalis pedis pul GI/Abdominal exam: PRESENT: normal bowel sounds, soft, other - Umbilical hernia. ABSENT: distended, guarding, mass, organolmegaly, rebound, tenderness Rectal exam: PRESENT: deferred Extremities exam: PRESENT: full ROM. ABSENT: calf tenderness, clubbing, pedal edema Neurological exam: PRESENT: alert, awake, oriented to person, oriented to place, oriented to time, oriented to situation, CN II-XII grossly intact. ABSENT: motor sensory deficit Psychiatric exam: PRESENT: appropriate affect, normal mood. ABSENT: homicidal ideation, suicidal ideation Skin exam: PRESENT: dry, intact, warm. ABSENT: cyanosis, rash Laboratory/Radiographs Laboratory Results: 09/05/20 10:29 09/05/20 10:29 09/05/20 09/05/20 09/05/20 09:59 10:29 10:29 WBC 11.2 H RBC 5.04 Hgb 16.9 Hct 47.4 MCV 94 MCH 33.6 H MCHC 35.7 RDW 13.4 Plt Count 471 H Seg Neutrophils % 67.6 VBG pH VBG pCO2 VBG HCO3 VBG Base Excess Sodium 114.5 L* Potassium 4.7 Chloride 77 L Carbon Dioxide 5 L* Anion Gap 33 H BUN 17 Creatinine 0.81 Est GFR ( Amer) > 60 Glucose 916 H* Lactic Acid Calcium 9.8 Total Bilirubin 1.3 AST 80 H Alkaline Phosphatase 134 H Total Protein 8.2 Albumin 4.9 Urine Color STRAW Urine Appearance CLEAR Urine pH 6.0 Ur Specific [place] 1.027 Urine Protein NEGATIVE Urine Glucose (UA) >=500 H Urine Ketones 20 H Urine Blood NEGATIVE Urine Nitrite NEGATIVE Ur Leukocyte Esterase NEGATIVE Urine WBC (Auto) 0 09/05/20 09/05/20 10:29 10:29 WBC RBC Hgb Hct MCV MCH MCHC RDW Plt Count Seg Neutrophils % VBG pH Cancelled VBG pCO2 Cancelled VBG HCO3 Cancelled VBG Base Excess Cancelled Sodium Potassium Chloride Carbon Dioxide Anion Gap BUN Creatinine Est GFR ( Amer) Glucose Lactic Acid 3.3 H Calcium Total Bilirubin AST Alkaline Phosphatase Total Protein Albumin Urine Color Urine Appearance Urine pH Ur Specific [place] Urine Protein Urine Glucose (UA) Urine Ketones Urine Blood Urine Nitrite Ur Leukocyte Esterase Urine WBC (Auto) Impressions: Abdomen/Pelvis CT 09/05/20 11:47 IMPRESSION: NO SIGNIFICANT OR ACUTE PROCESS IN THE ABDOMEN OR PELVIS. All labs, radiographs, diagnostic studies and EKGs were personally reviewed: Yes In addition, reports of radiographic and diagnostic studies were read: Yes Critical Time Critical Time (minutes): 60 -: The care of a critically ill patient is dynamic. This note represents a static moment in the admission process. Orders and treatments may be given simultane ously and urgently, and time is not appeals representative of the treatment process. This patient requires Critical Care secondary to life threatening organ or limb dysfunction. Without Critical Care services, the patient is at risk for increased mortality and morbidity.
[2020-09-05 19:54] LABS: BLOOD UREA NITROGEN 10 mg/dL (7-20); CALCIUM 9.2 mg/dL (8.4-10.2); CARBON DIOXIDE 13 mmol/L (22-30); CHLORIDE 90 mmol/L (98-107); GLUCOSE 336 mg/dL (75-110); POTASSIUM 3.9 mmol/L (3.6-5.0)
[2020-09-05 19:57] LABS: ANION GAP 21 (5-19)
[2020-09-05] MEDS: MAGNESIUM SULFATE/D5W 1 GM/100 ML RTUPB IV SCH ×2 (20:11→22:00)
--- NOTE | 2020-09-05 21:30 | EKG REPORT ---
SEVERITY:- ABNORMAL ECG - SINUS TACHYCARDIA RIGHT ATRIAL ABNORMALITY BORDERLINE RIGHT AXIS DEVIATION BORDERLINE INFERIOR Q WAVES BORDERLINE PROLONGED QT INTERVAL : Confirmed by: Russ Pablo MD 05-Sep-2020 21:30:03
[2020-09-05] MEDS: HEPARIN SOD (PORCINE) 5,000 UNIT/ML 1 ML VIAL SUBCUT SCH (22:00)
[2020-09-05] MEDS: PANTOPRAZOLE SODIUM 40 MG VIAL IV SCH (22:00)
[2020-09-05 23:24] LABS: ANION GAP 13 (5-19); BLOOD UREA NITROGEN 9 mg/dL (7-20); CALCIUM 8.5 mg/dL (8.4-10.2); CARBON DIOXIDE 19 mmol/L (22-30); CHLORIDE 93 mmol/L (98-107); GLUCOSE 253 mg/dL (75-110); POTASSIUM 3.6 mmol/L (3.6-5.0)
[2020-09-06] MEDS: NORMAL SALINE 1000 ML 1,000 ML IV PRN ×2 (00:20→04:30)
[2020-09-06] MEDS: METHADONE HCL 10 MG TABLET PO PRN ×3 (03:42→19:27)
[2020-09-06 04:14] LABS: ALBUMIN 3.7 g/dL (3.5-5.0); ALKALINE PHOSPHATASE 83 U/L (38-126); ASPARTATE AMINO TRANSFERASE 70 U/L (17-59); BILIRUBIN,DIRECT 0.3 mg/dL (0.0-0.4); BILIRUBIN,TOTAL 0.8 mg/dL (0.2-1.3); CHOLESTEROL 265.24 mg/dL (0-200); TOTAL PROTEIN 6.4 g/dL (6.3-8.2)
[2020-09-06 04:17] LABS: ANION GAP 10 (5-19); BLOOD UREA NITROGEN 10 mg/dL (7-20); CALCIUM 8.9 mg/dL (8.4-10.2); CARBON DIOXIDE 24 mmol/L (22-30); CHLORIDE 95 mmol/L (98-107); CREATINE KINASE 50 U/L (55-170); GLUCOSE 171 mg/dL (75-110); POTASSIUM 3.8 mmol/L (3.6-5.0)
[2020-09-06 04:25] LABS: DIRECT LDL 59 mg/dL (<100)
[2020-09-06 04:33] LABS: TRIGLYCERIDES 761 mg/dL (<150)
[2020-09-06 04:37] LABS: ABSOLUTE BASOPHILS # (AUTO) 0.1 10^3/uL (0.0-0.2); ABSOLUTE EOSINOPHILS # (AUTO) 0.1 10^3/uL (0.0-0.6); ABSOLUTE LYMPHOCYTES (AUTO) 3.7 10^3/uL (0.5-4.7); ABSOLUTE MONOCYTES (AUTO) 0.7 10^3/uL (0.1-1.4); ABSOLUTE NEUT (AUTO) 3.5 10^3/uL (1.7-8.2); BASOPHILS % (AUTO) 0.7 % (0-2); EOSINOPHILS % (AUTO) 1.6 % (0-6); HEMATOCRIT 37.9 % (37.9-51.0); LYMPHOCYTES % (AUTO) 45.3 % (13-45); MEAN CORPUSCULAR HEMOGLOBIN 34.3 pg (27.0-33.4); MONOCYTES % (AUTO) 8.7 % (3-13); PLATELET COUNT 288 10^3/uL (150-450); RED CELL DISTRIBUTION WIDTH 13.5 % (11.5-14.0); SEGMENTED NEUTROPHILS % (AUTO) 43.7 % (42-78); TOTAL CELLS COUNTED % (AUTO) 100 %; WHITE BLOOD COUNT 8.1 10^3/uL (4.0-10.5)
[2020-09-06 05:05] LABS: HEMOGLOBIN 14.4 g/dL (13.5-17.0); MEAN CORPUSCULAR VOLUME 90 fl (80-97)
[2020-09-06 05:06] LABS: MEAN CORPUSCULAR HGB CONC 37.9 g/dL (32.0-36.0)
[2020-09-06] MEDS: HEPARIN SOD (PORCINE) 5,000 UNIT/ML 1 ML VIAL SUBCUT SCH ×3 (05:55→21:39)
[2020-09-06 07:55] LABS: ANION GAP 11 (5-19); BLOOD UREA NITROGEN 9 mg/dL (7-20); CALCIUM 8.6 mg/dL (8.4-10.2); CARBON DIOXIDE 20 mmol/L (22-30); CHLORIDE 97 mmol/L (98-107); GLUCOSE 133 mg/dL (75-110); PHOSPHORUS 2.5 mg/dL (2.5-4.5); POTASSIUM 3.6 mmol/L (3.6-5.0)
[2020-09-06] MEDS ORDERED: INFLUENZA QUAD (6MOS+) 2020-21 VAC 0.5 ML SYR IM ONE (08:00)
[2020-09-06] MEDS: PANTOPRAZOLE SODIUM 40 MG VIAL IV SCH ×2 (09:45→21:40)
[2020-09-06 11:53] LABS: ANION GAP 14 (5-19); BLOOD UREA NITROGEN 9 mg/dL (7-20); CALCIUM 8.4 mg/dL (8.4-10.2); CARBON DIOXIDE 19 mmol/L (22-30); CHLORIDE 95 mmol/L (98-107); GLUCOSE 224 mg/dL (75-110); POTASSIUM 3.6 mmol/L (3.6-5.0)
[2020-09-06] MEDS: POTASSI CL 40 MEQ/NS 1L 1,000 ML IV PRN (13:55)
[2020-09-06] MEDS ORDERED: INSULIN GLARGINE,HUM.REC.ANLOG 1,000 UNIT/10 ML VIAL (PYX) SUBCUT ONE (14:00)
[2020-09-06 15:34] LABS: ANION GAP 8 (5-19); BLOOD UREA NITROGEN 8 mg/dL (7-20); CALCIUM 8.6 mg/dL (8.4-10.2); CARBON DIOXIDE 22 mmol/L (22-30); CHLORIDE 98 mmol/L (98-107); GLUCOSE 136 mg/dL (75-110); POTASSIUM 3.3 mmol/L (3.6-5.0)
[2020-09-06 19:37] LABS: ANION GAP 10 (5-19); BLOOD UREA NITROGEN 8 mg/dL (7-20); CALCIUM 8.3 mg/dL (8.4-10.2); CARBON DIOXIDE 20 mmol/L (22-30); CHLORIDE 94 mmol/L (98-107); GLUCOSE 260 mg/dL (75-110)
[2020-09-06] MEDS ORDERED: DEXTROSE 50%-WATER 25 GM/50 ML DISP.SYRIN IV PRN ×2 (19:48)
[2020-09-06] MEDS ORDERED: DEXTROSE 40% GEL 15 GM TUBE PO PRN ×2 (19:48)
[2020-09-06] MEDS ORDERED: GLUCAGON,HUMAN RECOMB 1 MG INJ IM PRN (19:48)
--- NOTE | 2020-09-06 20:36 | PDOC CRITICAL CARE PROG REPORT ---
General Date:: 09/06/20 ICU Day:: 2 Hospital Day:: 2 Resuscitation Status: Full Code Events in the past 12 to 24 Hours:: This 49-year-old male reformed smoker is seen in the emergency department, where the patient presented with complaints of severe nausea, vomiting and abdominal pain. He is a known type II diabetic. He has had a s imilar clinical presentation before, approximately 10 years ago, when he was first diagnosed with uncontrolled diabetes. The patient had a successful treatment course for his diabetes that included insulin and Metformin. He had significant weight loss and improvement in his glucose control, which allowed him to use Metformin alone for his diabetes regimen. In fact, the patient admits that he insisted to his doctor that he was "cured" of diabetes. He was advised that this was not the case. Nonetheless, the patient discontinued Metformin almost 2 years ago. He has a history of chronic pain secondary to back injury. He was established with the pain clinic and now receives methadone refills from his primary care provider. 09/06: Anion gap is closed. Still on insulin infusion. Requesting p.o. diet. No new complaints. Serum sodium 128. Hemoglobin A1c 13.4%. Reason for ICU Addmission:: Diabetic ketoacidosis - Medications: Medications reviewed and adjusted accordingly: Yes Physical Exam Vital Signs: Temp Pulse Resp BP Pulse Ox 98.4 F 94 14 135/101 H 99 09/06/20 11:58 09/06/20 11:58 09/06/20 11:58 09/06/20 11:58 09/06/20 11:58 Intake & Output 09/05/20 09/06/20 09/07/20 06:59 06:59 06:59 Intake Total 4185 134 Output Total 3700 1000 Balance 485 -866 Weight 99.7 kg 99.7 kg Weight/Height Weight 99.7 kg Height 1.88 m General appearance: PRESENT: no acute distress, well-developed, well-nourished Head exam: PRESENT: atraumatic, normocephalic Eye exam: PRESENT: conjunctiva pink, EOMI, PERRLA. ABSENT: scleral icterus Mouth exam: PRESENT: dry mucosa, moist, tongue midline Neck exam: ABSENT: carotid bruit, JVD, lymphadenopathy, thyromegaly Respiratory exam: PRESENT: clear to auscultation ariadne. ABSENT: rales, rhonchi, wheezes Cardiovascular exam: PRESENT: RRR. ABSENT: diastolic murmur, rubs, systolic murmur GI/Abdominal exam: PRESENT: normal bowel sounds, soft. ABSENT: distended, guarding, mass, organolmegaly, rebound, tenderness Extremities exam: PRESENT: full ROM. ABSENT: calf tenderness, clubbing, pedal edema Musculoskeletal exam: PRESENT: normal inspection. ABSENT: deformity Neurological exam: PRESENT: alert, awake, oriented to person, oriented to place, oriented to time, oriented to situation, CN II-XII grossly intact. ABSENT: motor sensory deficit Psychiatric exam: ABSENT: agitated, anxious Skin exam: PRESENT: dry, intact, warm. ABSENT: cyanosis, rash Laboratory/Radiographs Laboratory Results: 09/06/20 03:26 09/06/20 11:10 09/05/20 09/05/20 09/05/20 10:29 10:29 15:30 WBC RBC Hgb Hct MCV MCH MCHC RDW Plt Count Seg Neutrophils % Carbonic Acid HCO3/H2CO3 Ratio ABG pH ABG pCO2 ABG pO2 ABG HCO3 ABG O2 Saturation ABG Base Excess VBG pH Cancelled VBG pCO2 Cancelled VBG HCO3 Cancelled VBG Base Excess Cancelled FiO2 Sodium Potassium Chloride Carbon Dioxide Anion Gap BUN Creatinine Est GFR ( Amer) Glucose Lactic Acid 1.1 Calcium Phosphorus Magnesium Total Bilirubin AST Alkaline Phosphatase Total Protein Albumin Triglycerides Cholesterol LDL Cholesterol Direct HDL Cholesterol Lipase 183.1 09/05/20 09/05/20 09/05/20 15:30 15:30 15:30 WBC RBC Hgb Hct MCV MCH MCHC RDW Plt Count Seg Neutrophils % Carbonic Acid Cancelled HCO3/H2CO3 Ratio Cancelled ABG pH Cancelled ABG pCO2 Cancelled ABG pO2 Cancelled ABG HCO3 Cancelled ABG O2 Saturation Cancelled ABG Base Excess Cancelled VBG pH 7.27 L VBG pCO2 33.7 L VBG HCO3 15.2 L VBG Base Excess -10.1 FiO2 Cancelled Sodium 122.2 L Potassium 4.3 Chloride 89 L Carbon Dioxide 13 L Anion Gap 20 H BUN 13 Creatinine 0.54 Est GFR ( Amer) > 60 Glucose 519 H* Lactic Acid Calcium 8.9 Phosphorus Magnesium Total Bilirubin AST Alkaline Phosphatase Total Protein Albumin Triglycerides Cholesterol LDL Cholesterol Direct HDL Cholesterol Lipase 09/05/20 09/05/20 09/05/20 15:30 18:25 18:43 WBC RBC Hgb Hct MCV MCH MCHC RDW Plt Count Seg Neutrophils % Carbonic Acid 0.98 L HCO3/H2CO3 Ratio 17:1 ABG pH 7.34 L ABG pCO2 32.7 L ABG pO2 106.0 H ABG HCO3 17.4 L ABG O2 Saturation 97.7 ABG Base Excess -7.1 VBG pH VBG pCO2 VBG HCO3 VBG Base Excess FiO2 ROOM AIR Sodium 125.3 L Potassium 4.0 Chloride 91 L Carbon Dioxide 14 L Anion Gap 20 H BUN 10 Creatinine 0.43 L Est GFR ( Amer) > 60 Glucose 376 H Lactic Acid Calcium 9.1 Phosphorus Magnesium 1.7 Total Bilirubin AST Alkaline Phosphatase Total Protein Albumin Triglycerides Cholesterol LDL Cholesterol Direct HDL Cholesterol Lipase 09/05/20 09/05/20 09/05/20 19:26 19:26 23:01 WBC RBC Hgb Hct MCV MCH MCHC RDW Plt Count Seg Neutrophils % Carbonic Acid HCO3/H2CO3 Ratio ABG pH ABG pCO2 ABG pO2 ABG HCO3 ABG O2 Saturation ABG Base Excess VBG pH VBG pCO2 VBG HCO3 VBG Base Excess FiO2 Sodium 124.3 L 125.0 L Potassium 3.9 3.6 Chloride 90 L 93 L Carbon Dioxide 13 L 19 L Anion Gap 21 H 13 BUN 10 9 Creatinine 0.47 L 0.42 L Est GFR ( Amer) > 60 > 60 Glucose 336 H 253 H Lactic Acid 1.1 Calcium 9.2 8.5 Phosphorus Magnesium Total Bilirubin AST Alkaline Phosphatase Total Protein Albumin Triglycerides Cholesterol LDL Cholesterol Direct HDL Cholesterol Lipase 09/06/20 09/06/20 09/06/20 03:26 03:26 03:26 WBC 8.1 RBC 4.20 L Hgb 14.4 D Hct 37.9 MCV 90 D MCH 34.3 H MCHC 37.9 H RDW 13.5 Plt Count 288 Seg Neutrophils % 43.7 Carbonic Acid HCO3/H2CO3 Ratio ABG pH ABG pCO2 ABG pO2 ABG HCO3 ABG O2 Saturation ABG Base Excess VBG pH VBG pCO2 VBG HCO3 VBG Base Excess FiO2 Sodium 128.9 L Potassium 3.8 Chloride 95 L Carbon Dioxide 24 Anion Gap 10 BUN 10 Creatinine 0.52 Est GFR ( Amer) > 60 Glucose 171 H Lactic Acid Calcium 8.9 Phosphorus Magnesium Total Bilirubin 0.8 AST 70 H Alkaline Phosphatase 83 Total Protein 6.4 Albumin 3.7 Triglycerides 761 H Cholesterol 265.24 H LDL Cholesterol Direct 59 HDL Cholesterol 27 L Lipase 09/06/20 09/06/20 09/06/20 07:04 07:04 11:10 WBC RBC Hgb Hct MCV MCH MCHC RDW Plt Count Seg Neutrophils % Carbonic Acid HCO3/H2CO3 Ratio ABG pH ABG pCO2 ABG pO2 ABG HCO3 ABG O2 Saturation ABG Base Excess VBG pH VBG pCO2 VBG HCO3 VBG Base Excess FiO2 Sodium 128.4 L 127.8 L Potassium 3.6 3.6 Chloride 97 L 95 L Carbon Dioxide 20 L 19 L Anion Gap 11 14 BUN 9 9 Creatinine 0.45 L 0.51 L Est GFR ( Amer) > 60 > 60 Glucose 133 H 224 H Lactic Acid Calcium 8.6 8.4 Phosphorus Cancelled 2.5 Magnesium Total Bilirubin AST Alkaline Phosphatase Total Protein Albumin Triglycerides Cholesterol LDL Cholesterol Direct HDL Cholesterol Lipase 09/05/20 09/05/20 09/05/20 10:29 15:30 15:30 Creatine Kinase 51 L Troponin I 0.015 0.012 09/05/20 09/05/20 09/06/20 23:01 23:01 03:26 Creatine Kinase 53 L 50 L Troponin I 0.014 09/06/20 03:26 Creatine Kinase Troponin I 0.013 Impressions: Abdomen/Pelvis CT 09/05/20 11:47 IMPRESSION: NO SIGNIFICANT OR ACUTE PROCESS IN THE ABDOMEN OR PELVIS. All labs, radiographs, diagnostic studies and EKGs were personally reviewed: Yes In addition, reports of radiographic and diagnostic studies were read: Yes Assessment and Plan - Diagnosis (1) DKA (diabetic ketoacidoses) Qualifiers: Diabetes mellitus type: type 2 Diabetes mellitus complication detail: without coma Qualified Code(s): E11.10 - Type 2 diabetes mellitus with ketoacidosis without coma Is this a current diagnosis for this admission?: Yes Plan: Start Lantus 40 units subcutaneously every 12 hours. Stop insulin infusion after Lantus administration. Change IV fluids to NS + 40 mEq KCl at 100 mL/h. (2) Hyponatremia Is this a current diagnosis for this admission?: Yes Plan: This is a mild hyponatremia, 1 taking into consideration the patient's hyperglycemia. Monitor serial sodium. Change IV fluids to NS +40 mEq KCl at 100 mL/h. (3) Chronically on opiate therapy Is this a current diagnosis for this admission?: Yes Plan: Continue home methadone dosing. (4) Umbilical hernia Is this a current diagnosis for this admission?: Yes Critical Time Critical Time (minutes): 45 Level of Care: ICU -: 1. The care of a critical patient is a dynamic process. This note is a desk representative synopsis but static in nature. The timeframe for treatments given in order is not necessarily the actual time these treatments may have been done. 2. This patient requires critical care secondary to ongoing requirements for therapy not offered or safe outside the critical care environment. Transfer to a lower level of care will result in altered life or limb morbidity and mortality. 3. Multidisciplinary rounds completed. 4. ABCDE bundle addressed.
[2020-09-06] MEDS: NYSTATIN CREAM 15 GM TP SCH (21:37)
[2020-09-06] MEDS: INSULIN REG, HUMAN 100 UNIT/ML 3 ML VIAL (PYX) SUBCUT SCH (21:38)
[2020-09-06] MEDS: INSULIN GLARGINE,HUM.REC.ANLOG 1,000 UNIT/10 ML VIAL SUBCUT SCH (21:39)
[2020-09-06] MEDS ORDERED: ZOLPIDEM TARTRATE 5 MG TABLET PO SCH (22:00)
[2020-09-06 23:24] LABS: ANION GAP 9 (5-19); BLOOD UREA NITROGEN 6 mg/dL (7-20); CALCIUM 8.3 mg/dL (8.4-10.2); CARBON DIOXIDE 20 mmol/L (22-30); CHLORIDE 96 mmol/L (98-107); GLUCOSE 228 mg/dL (75-110); POTASSIUM 3.9 mmol/L (3.6-5.0)
[2020-09-07] MEDS: POTASSI CL 40 MEQ/NS 1L 1,000 ML IV PRN (00:40)
[2020-09-07 03:35] LABS: ANION GAP 9 (5-19); BLOOD UREA NITROGEN 6 mg/dL (7-20); CALCIUM 8.5 mg/dL (8.4-10.2); CARBON DIOXIDE 23 mmol/L (22-30); CHLORIDE 97 mmol/L (98-107); GLUCOSE 201 mg/dL (75-110); POTASSIUM 4.2 mmol/L (3.6-5.0)
[2020-09-07] MEDS: HEPARIN SOD (PORCINE) 5,000 UNIT/ML 1 ML VIAL SUBCUT SCH ×3 (05:41→21:42)
[2020-09-07] MEDS: METHADONE HCL 10 MG TABLET PO PRN ×3 (05:43→19:38)
[2020-09-07 07:53] LABS: ANION GAP 8 (5-19); BLOOD UREA NITROGEN 5 mg/dL (7-20); CALCIUM 8.6 mg/dL (8.4-10.2); CARBON DIOXIDE 23 mmol/L (22-30); CHLORIDE 98 mmol/L (98-107); GLUCOSE 147 mg/dL (75-110); POTASSIUM 3.6 mmol/L (3.6-5.0)
[2020-09-07] MEDS: INSULIN REG, HUMAN 100 UNIT/ML 3 ML VIAL (PYX) SUBCUT SCH ×3 (10:10→21:42)
[2020-09-07] MEDS: INSULIN GLARGINE,HUM.REC.ANLOG 1,000 UNIT/10 ML VIAL SUBCUT SCH ×2 (10:10→21:46)
[2020-09-07] MEDS: PANTOPRAZOLE SODIUM 40 MG VIAL IV SCH ×2 (10:11→21:43)
[2020-09-07] MEDS: NYSTATIN CREAM 15 GM TP SCH ×2 (10:11→21:46)
[2020-09-07 12:06] LABS: ANION GAP 8 (5-19); BLOOD UREA NITROGEN 4 mg/dL (7-20); CALCIUM 8.7 mg/dL (8.4-10.2); CARBON DIOXIDE 23 mmol/L (22-30); CHLORIDE 98 mmol/L (98-107); GLUCOSE 258 mg/dL (75-110); POTASSIUM 3.7 mmol/L (3.6-5.0)
[2020-09-07 16:00] LABS: ANION GAP 8 (5-19); BLOOD UREA NITROGEN 4 mg/dL (7-20); CALCIUM 8.7 mg/dL (8.4-10.2); CARBON DIOXIDE 21 mmol/L (22-30); CHLORIDE 99 mmol/L (98-107); GLUCOSE 231 mg/dL (75-110); POTASSIUM 4.1 mmol/L (3.6-5.0)
--- NOTE | 2020-09-07 16:58 | PDOC CRITICAL CARE PROG REPORT ---
General Date:: 09/07/20 ICU Day:: 3 Hospital Day:: 3 Resuscitation Status: Full Code Events in the past 12 to 24 Hours:: This 49-year-old male reformed smoker is seen in the emergency department, where the patient presented with complaints of severe nausea, vomiting and abdominal pain. He is a known type II diabetic. He has had a s imilar clinical presentation before, approximately 10 years ago, when he was first diagnosed with uncontrolled diabetes. The patient had a successful treatment course for his diabetes that included insulin and Metformin. He had significant weight loss and improvement in his glucose control, which allowed him to use Metformin alone for his diabetes regimen. In fact, the patient admits that he insisted to his doctor that he was "cured" of diabetes. He was advised that this was not the case. Nonetheless, the patient discontinued Metformin almost 2 years ago. He has a history of chronic pain secondary to back injury. He was established with the pain clinic and now receives methadone refills from his primary care provider. 09/06: Anion gap is closed. Still on insulin infusion. Requesting p.o. diet. No new complaints. Serum sodium 128. Hemoglobin A1c 13.4%. 09/07: Anion gap remains closed. On diabetic diet. On Lantus 40 units subcutaneously every 12 hours with sliding scale insulin. Glucose values over the past 24 hours: 785389. Serum sodium 129. Reason for ICU Addmission:: Diabetic ketoacidosis - Medications: Medications reviewed and adjusted accordingly: Yes Physical Exam Vital Signs: Temp Pulse Resp BP Pulse Ox 97.9 F 99 12 142/93 H 97 09/07/20 08:46 09/07/20 10:00 09/07/20 10:00 09/07/20 10:00 09/07/20 10:00 Intake & Output 09/06/20 09/07/20 09/08/20 06:59 06:59 06:59 Intake Total 4185 4021 355 Output Total 3700 3800 400 Balance 485 221 -45 Weight 99.7 kg 103.6 kg Weight/Height Weight 103.6 kg Height 1.88 m General appearance: PRESENT: no acute distress, well-developed, well-nourished Head exam: PRESENT: atraumatic, normocephalic Eye exam: PRESENT: conjunctiva pink, EOMI, PERRLA. ABSENT: scleral icterus Mouth exam: PRESENT: moist, tongue midline Neck exam: ABSENT: carotid bruit, JVD, lymphadenopathy, thyromegaly Respiratory exam: PRESENT: clear to auscultation ariadne. ABSENT: rales, rhonchi, wheezes Cardiovascular exam: PRESENT: RRR. ABSENT: diastolic murmur, rubs, systolic murmur GI/Abdominal exam: PRESENT: normal bowel sounds, soft. ABSENT: distended, g uarding, mass, organolmegaly, rebound, tenderness Extremities exam: PRESENT: full ROM. ABSENT: calf tenderness, clubbing, pedal edema Neurological exam: PRESENT: alert, awake, oriented to person, oriented to place, oriented to time, oriented to situation, CN II-XII grossly intact. ABSENT: motor sensory deficit Psychiatric exam: ABSENT: agitated, anxious Skin exam: PRESENT: dry, intact, warm. ABSENT: cyanosis, rash Laboratory/Radiographs Laboratory Results: 09/06/20 03:26 09/07/20 11:10 09/06/20 09/06/20 09/06/20 14:57 19:05 22:52 Sodium 128.1 L 124.2 L Potassium 3.3 L 4.0 Chloride 98 94 L Carbon Dioxide 22 20 L Anion Gap 8 10 BUN 8 8 Creatinine 0.47 L 0.48 L Est GFR ( Amer) > 60 > 60 Glucose 136 H 260 H Calcium 8.6 8.3 L Phosphorus 2.0 L 09/06/20 09/07/20 09/07/20 22:52 03:05 07:25 Sodium 125.2 L 128.7 L 129.2 L Potassium 3.9 4.2 3.6 Chloride 96 L 97 L 98 Carbon Dioxide 20 L 23 23 Anion Gap 9 9 8 BUN 6 L 6 L 5 L Creatinine 0.43 L 0.49 L 0.46 L Est GFR ( Amer) > 60 > 60 > 60 Glucose 228 H 201 H 147 H Calcium 8.3 L 8.5 8.6 Phosphorus 09/07/20 11:10 Sodium 128.5 L Potassium 3.7 Chloride 98 Carbon Dioxide 23 Anion Gap 8 BUN 4 L Creatinine 0.45 L Est GFR ( Amer) > 60 Glucose 258 H Calcium 8.7 Phosphorus 09/05/20 09:59 Clean Catch Midstream Urine Culture - Final Group B Beta Streptococcus 09/05/20 16:07 Blood Blood Culture (PCR) - Final Staphylococcus Species 09/05/20 09/05/20 09/05/20 10:29 15:30 15:30 Creatine Kinase 51 L Troponin I 0.015 0.012 09/05/20 09/05/20 09/06/20 23:01 23:01 03:26 Creatine Kinase 53 L 50 L Troponin I 0.014 09/06/20 03:26 Creatine Kinase Troponin I 0.013 Impressions: Abdomen/Pelvis CT 09/05/20 11:47 IMPRESSION: NO SIGNIFICANT OR ACUTE PROCESS IN THE ABDOMEN OR PELVIS. All labs, radiographs, diagnostic studies and EKGs were personally reviewed: Yes In addition, reports of radiographic and diagnostic studies were read: Yes Assessment and Plan - Diagnosis (1) DKA (diabetic ketoacidoses) Qualifiers: Diabetes mellitus type: type 2 Diabetes mellitus complication detail: without coma Qualified Code(s): E11.10 - Type 2 diabetes mellitus with ketoacidosis without coma Is this a current diagnosis for this admission?: Yes Plan: Increase Lantus to 50 units subcutaneously every 12 hours. Continue sliding scale insulin. Stop IV fluids. (2) Hyponatremia Is this a current diagnosis for this admission?: Yes Plan: Monitor serial sodium. (3) Chronically on opiate therapy Is this a current diagnosis for this admission?: Yes Plan: Continue home methadone dosing. (4) Umbilical hernia Is this a current diagnosis for this admission?: Yes Critical Time Critical Time (minutes): 30 Level of Care: ICU -: 1. The care of a critical patient is a dynamic process. This note is a aircraft sales representative synopsis but static in nature. The timeframe for treatments given in order is not necessarily the actual time these treatments may have been done. 2. This patient requires critical care secondary to ongoing requirements for therapy not offered or safe outside the critical care environment. Transfer to a lower level of care will result in altered life or limb morbidity and mortality. 3. Multidisciplinary rounds completed. 4. ABCDE bundle addressed.
[2020-09-07 19:56] LABS: ANION GAP 9 (5-19); BLOOD UREA NITROGEN 4 mg/dL (7-20); CARBON DIOXIDE 22 mmol/L (22-30); CHLORIDE 98 mmol/L (98-107); GLUCOSE 206 mg/dL (75-110); POTASSIUM 4.3 mmol/L (3.6-5.0)
[2020-09-07] MEDS: ZOLPIDEM TARTRATE 5 MG TABLET PO SCH (21:41)
[2020-09-07 23:55] LABS: ANION GAP 6 (5-19); BLOOD UREA NITROGEN 3 mg/dL (7-20); CALCIUM 8.7 mg/dL (8.4-10.2); CARBON DIOXIDE 25 mmol/L (22-30); CHLORIDE 97 mmol/L (98-107); GLUCOSE 196 mg/dL (75-110); POTASSIUM 3.7 mmol/L (3.6-5.0)
[2020-09-08 03:34] LABS: ANION GAP 8 (5-19); BLOOD UREA NITROGEN 4 mg/dL (7-20); CALCIUM 9.1 mg/dL (8.4-10.2); CARBON DIOXIDE 24 mmol/L (22-30); CHLORIDE 98 mmol/L (98-107); GLUCOSE 219 mg/dL (75-110); POTASSIUM 3.9 mmol/L (3.6-5.0)
[2020-09-08] MEDS: HEPARIN SOD (PORCINE) 5,000 UNIT/ML 1 ML VIAL SUBCUT SCH ×3 (06:24→21:13)
[2020-09-08] MEDS: METHADONE HCL 10 MG TABLET PO PRN ×2 (06:28→16:46)
[2020-09-08 08:01] LABS: ANION GAP 8 (5-19); BLOOD UREA NITROGEN 3 mg/dL (7-20); CALCIUM 8.9 mg/dL (8.4-10.2); CARBON DIOXIDE 25 mmol/L (22-30); CHLORIDE 97 mmol/L (98-107); GLUCOSE 283 mg/dL (75-110); POTASSIUM 3.7 mmol/L (3.6-5.0)
[2020-09-08] MEDS: INSULIN GLARGINE,HUM.REC.ANLOG 1,000 UNIT/10 ML VIAL SUBCUT SCH ×2 (09:13→21:29)
[2020-09-08] MEDS: INSULIN REG, HUMAN 100 UNIT/ML 3 ML VIAL (PYX) SUBCUT SCH ×4 (09:13→21:15)
[2020-09-08] MEDS: PANTOPRAZOLE SODIUM 40 MG VIAL IV SCH ×2 (09:13→21:13)
[2020-09-08] MEDS: NYSTATIN CREAM 15 GM TP SCH ×2 (09:14→21:14)
[2020-09-08 11:39] LABS: ANION GAP 5 (5-19); BLOOD UREA NITROGEN 3 mg/dL (7-20); CALCIUM 8.9 mg/dL (8.4-10.2); CARBON DIOXIDE 26 mmol/L (22-30); CHLORIDE 98 mmol/L (98-107); GLUCOSE 309 mg/dL (75-110); POTASSIUM 3.9 mmol/L (3.6-5.0)
--- NOTE | 2020-09-08 12:35 | PDOC CRITICAL CARE PROG REPORT ---
General Date:: 09/08/20 ICU Day:: 4 Hospital Day:: 4 Resuscitation Status: Full Code Events in the past 12 to 24 Hours:: This 49-year-old male reformed smoker is seen in the emergency department, where the patient presented with complaints of severe nausea, vomiting and abdominal pain. He is a known type II diabetic. He has had a s imilar clinical presentation before, approximately 10 years ago, when he was first diagnosed with uncontrolled diabetes. The patient had a successful treatment course for his diabetes that included insulin and Metformin. He had significant weight loss and improvement in his glucose control, which allowed him to use Metformin alone for his diabetes regimen. In fact, the patient admits that he insisted to his doctor that he was "cured" of diabetes. He was advised that this was not the case. Nonetheless, the patient discontinued Metformin almost 2 years ago. He has a history of chronic pain secondary to back injury. He was established with the pain clinic and now receives methadone refills from his primary care provider. 09/06: Anion gap is closed. Still on insulin infusion. Requesting p.o. diet. No new complaints. Serum sodium 128. Hemoglobin A1c 13.4%. 09/07: Anion gap remains closed. On diabetic diet. On Lantus 40 units subcutaneously every 12 hours with sliding scale insulin. Glucose values over the past 24 hours: 436115. Serum sodium 129. 09/08: Tolerating p.o. diet. On Lantus 40 units subcutaneously every 12 hours with sliding scale insulin. Anger stick glucose values over the past 24 hours: 466114. Serum sodium 130. Review of systems relevant to events:: Endocrine: Diabetic ketoacidosis, nonadherence to prescribed therapy Renal: Hyponatremia Reason for ICU Addmission:: Diabetic ketoacidosis - Medications: Medications reviewed and adjusted accordingly: Yes Physical Exam Vital Signs: Temp Pulse Resp BP Pulse Ox 98.4 F 107 H 17 116/78 98 09/08/20 12:00 09/08/20 12:00 09/08/20 12:00 09/08/20 12:00 09/08/20 12:00 Intake & Output 09/07/20 09/08/20 09/09/20 06:59 06:59 06:59 Intake Total 4021 1592 Output Total 3800 3025 1000 Balance 221 -1433 -1000 Weight 103.6 kg 105.8 kg Weight/Height Weight 105.8 kg Height 1.88 m General appearance: PRESENT: no acute distress, well-developed, well-nourished Head exam: PRESENT: atraumatic, normocephalic Eye exam: PRESENT: conjunctiva pink, EOMI, PERRLA. ABSENT: scleral icterus Ear exam: PRESENT: normal external ear exam Mouth exam: PRESENT: moist, tongue midline Neck exam: ABSENT: carotid bruit, JVD, lymphadenopathy, thyromegaly Respiratory exam: PRESENT: clear to auscultation ariadne. ABSENT: rales, rhonchi, wheezes Cardiovascular exam: PRESENT: RRR. ABSENT: diastolic murmur, rubs, systolic murmur Pulses: PRESENT: normal dorsalis pedis pul Vascular exam: PRESENT: normal capillary refill GI/Abdominal exam: PRESENT: normal bowel sounds, soft. ABSENT: distended, guarding, mass, organolmegaly, rebound, tenderness Extremities exam: PRESENT: full ROM. ABSENT: calf tenderness, clubbing, pedal edema Musculoskeletal exam: PRESENT: normal inspection. ABSENT: deformity Neurological exam: PRESENT: alert, awake, oriented to person, oriented to place, oriented to time, oriented to situation, CN II-XII grossly intact. ABSENT: motor sensory deficit Psychiatric exam: ABSENT: agitated, anxious Skin exam: PRESENT: dry, intact, warm. ABSENT: cyanosis, rash Laboratory/Radiographs Laboratory Results: 09/06/20 03:26 09/08/20 11:02 09/07/20 09/07/20 09/07/20 14:56 19:05 23:10 Sodium 127.5 L 128.6 L 128.1 L Potassium 4.1 4.3 3.7 Chloride 99 98 97 L Carbon Dioxide 21 L 22 25 Anion Gap 8 9 6 BUN 4 L 4 L 3 L Creatinine 0.48 L 0.58 0.44 L Est GFR ( Amer) > 60 > 60 > 60 Glucose 231 H 206 H 196 H Calcium 8.7 9.0 8.7 09/08/20 09/08/20 09/08/20 03:06 07:12 11:02 Sodium 129.8 L 130.3 L 129.1 L Potassium 3.9 3.7 3.9 Chloride 98 97 L 98 Carbon Dioxide 24 25 26 Anion Gap 8 8 5 BUN 4 L 3 L 3 L Creatinine 0.50 L 0.50 L 0.50 L Est GFR ( Amer) > 60 > 60 > 60 Glucose 219 H 283 H 309 H Calcium 9.1 8.9 8.9 09/05/20 16:07 Blood Blood Culture (PCR) - Final Staphylococcus Species 09/05/20 09:59 Clean Catch Midstream Urine Culture - Final Group B Beta Streptococcus 09/05/20 09/05/20 09/05/20 10:29 15:30 15:30 Creatine Kinase 51 L Troponin I 0.015 0.012 09/05/20 09/05/20 09/06/20 23:01 23:01 03:26 Creatine Kinase 53 L 50 L Troponin I 0.014 09/06/20 03:26 Creatine Kinase Troponin I 0.013 Impressions: Abdomen/Pelvis CT 09/05/20 11:47 IMPRESSION: NO SIGNIFICANT OR ACUTE PROCESS IN THE ABDOMEN OR PELVIS. All labs, radiographs, diagnostic studies and EKGs were personally reviewed: Yes In addition, reports of radiographic and diagnostic studies were read: Yes Assessment and Plan - Diagnosis (1) DKA (diabetic ketoacidoses) Qualifiers: Diabetes mellitus type: type 2 Diabetes mellitus complication detail: without coma Qualified Code(s): E11.10 - Type 2 diabetes mellitus with ketoacidosis without coma Is this a current diagnosis for this admission?: Yes Plan: DKA resolved but will need improved glucose control. Increase Lantus to 50 units subcutaneously every 12 hours. Continue sliding scale insulin. Stop IV fluids. (2) Hyponatremia Is this a current diagnosis for this admission?: Yes Plan: Improving. Mild hyponatremia a component of pseudohyponatremia. Monitor serial sodium. (3) Chronically on opiate therapy Is this a current diagnosis for this admission?: Yes Plan: Continue home methadone dosing. (4) Umbilical hernia Is this a current diagnosis for this admission?: Yes Critical Time Critical Time (minutes): 30 Level of Care: ICU -: 1. The care of a critical patient is a dynamic process. This note is a community relations representative synopsis but static in nature. The timeframe for treatments given in order is not necessarily the actual time these treatments may have been done. 2. This patient requires critical care secondary to ongoing requirements for therapy not offered or safe outside the critical care environment. Transfer to a lower level of care will result in altered life or limb morbidity and mort ality. 3. Multidisciplinary rounds completed. 4. ABCDE bundle addressed.
[2020-09-08 15:48] LABS: ANION GAP 7 (5-19); BLOOD UREA NITROGEN 2 mg/dL (7-20); CALCIUM 8.9 mg/dL (8.4-10.2); CARBON DIOXIDE 28 mmol/L (22-30); CHLORIDE 97 mmol/L (98-107); GLUCOSE 111 mg/dL (75-110); POTASSIUM 3.6 mmol/L (3.6-5.0)
--- NOTE | 2020-09-08 16:19 | Progress Note ---
Provider Note Provider Note: 09/08/[id number]-nmct-old male with history of diabetes mellitus, chronic smoker admitted with complaints of nausea vomiting diarrhea. He was found to be in DKA. Used to be on Metformin and insulin he stopped taking medications thinking diabetes is under control. He was admitted with hyponatremia and high anion gap . Blood sugars are improved. Hemoglobin A1c is 13.4. Latest blood sugar this morning is 111. Presently on Lantus 50 units subcu twice a day and insulin sliding scale coverage. Patient is stable enough and he was transferred to medical from ICU. Examination comfortably in the bed communicating well. Denies any problems. Pupils are equal react light accommodation. Neck was supple no JVD no carotid bruit. Chest bilateral entry was good no wheezing no crepitations. CVS S1-S2 present in sinus rhythm. Abdomen soft bowel sounds are present. Extremities peripheral pulses are present no pedal edema. Plan-is to continue insulin sliding scale before meals and at bedtime, dietary consult, Lantus 15 units twice a day. To repeat the labs tomorrow. If the blood sugars are improved plan is to discharge him home tomorrow with Lantus.
[2020-09-08 21:07] LABS: ANION GAP 7 (5-19); CALCIUM 8.7 mg/dL (8.4-10.2); CARBON DIOXIDE 26 mmol/L (22-30); CHLORIDE 96 mmol/L (98-107); GLUCOSE 114 mg/dL (75-110); POTASSIUM 3.4 mmol/L (3.6-5.0)
[2020-09-08 21:08] LABS: BLOOD UREA NITROGEN < 2 mg/dL (7-20)
[2020-09-08] MEDS: LAMOTRIGINE 100 MG TABLET PO SCH (21:13)
[2020-09-08] MEDS: ZOLPIDEM TARTRATE 5 MG TABLET PO SCH (21:13)
[2020-09-08] MEDS: BENZTROPINE MESYLATE 1 MG TABLET PO SCH (21:14)
[2020-09-08] MEDS ORDERED: INSULIN GLARGINE,HUM.REC.ANLOG 1,000 UNIT/10 ML VIAL (PYX) SUBCUT ONE (21:22)
[2020-09-08] MEDS ORDERED: RISPERIDONE 1 MG TABLET PO SCH (22:00)
[2020-09-08] MEDS ORDERED: PAROXETINE HCL 20 MG TABLET PO SCH (22:00)
[2020-09-08 23:26] LABS: ANION GAP 7 (5-19); CALCIUM 8.6 mg/dL (8.4-10.2); CARBON DIOXIDE 27 mmol/L (22-30); CHLORIDE 95 mmol/L (98-107); GLUCOSE 159 mg/dL (75-110); POTASSIUM 3.4 mmol/L (3.6-5.0)
[2020-09-08 23:27] LABS: BLOOD UREA NITROGEN < 2 mg/dL (7-20)
[2020-09-09 03:33] LABS: ANION GAP 6 (5-19); BLOOD UREA NITROGEN 3 mg/dL (7-20); CALCIUM 8.3 mg/dL (8.4-10.2); CARBON DIOXIDE 27 mmol/L (22-30); CHLORIDE 99 mmol/L (98-107); GLUCOSE 265 mg/dL (75-110); POTASSIUM 3.5 mmol/L (3.6-5.0)
[2020-09-09] MEDS ORDERED: ACETAMINOPHEN 325 MG TABLET ONE (06:28)
[2020-09-09] MEDS: HEPARIN SOD (PORCINE) 5,000 UNIT/ML 1 ML VIAL SUBCUT SCH ×3 (06:29→22:33)
[2020-09-09 07:28] LABS: ABSOLUTE LYMPHOCYTES (AUTO) 0.9 10^3/uL (0.5-4.7); ABSOLUTE MONOCYTES (AUTO) 0.3 10^3/uL (0.1-1.4); ABSOLUTE NEUT (AUTO) 1.8 10^3/uL (1.7-8.2); BASOPHILS % (AUTO) 1.2 % (0-2); EOSINOPHILS % (AUTO) 0.4 % (0-6); HEMATOCRIT 26.1 % (37.9-51.0); HEMOGLOBIN 9.8 g/dL (13.5-17.0); LYMPHOCYTES % (AUTO) 29.9 % (13-45); MEAN CORPUSCULAR HEMOGLOBIN 34.7 pg (27.0-33.4); MEAN CORPUSCULAR VOLUME 93 fl (80-97); MONOCYTES % (AUTO) 8.4 % (3-13); PLATELET COUNT 152 10^3/uL (150-450); RED BLOOD COUNT 2.82 10^6/uL (4.35-5.55); RED CELL DISTRIBUTION WIDTH 13.2 % (11.5-14.0); SEGMENTED NEUTROPHILS % (AUTO) 60.1 % (42-78); TOTAL CELLS COUNTED % (AUTO) 100 %; WHITE BLOOD COUNT 3.1 10^3/uL (4.0-10.5)
[2020-09-09] MEDS ORDERED: ACETAMINOPHEN 325 MG TABLET PO ONE (07:30)
[2020-09-09 07:33] LABS: MEAN CORPUSCULAR HGB CONC 37.5 g/dL (32.0-36.0)
[2020-09-09 07:42] LABS: ALBUMIN 3.1 g/dL (3.5-5.0); ALKALINE PHOSPHATASE 76 U/L (38-126); ANION GAP 9 (5-19); ASPARTATE AMINO TRANSFERASE 53 U/L (17-59); BILIRUBIN,DIRECT 0.3 mg/dL (0.0-0.4); BILIRUBIN,TOTAL 0.7 mg/dL (0.2-1.3); CALCIUM 8.6 mg/dL (8.4-10.2); CARBON DIOXIDE 26 mmol/L (22-30); CHLORIDE 98 mmol/L (98-107); GLUCOSE 262 mg/dL (75-110); POTASSIUM 3.8 mmol/L (3.6-5.0); TOTAL PROTEIN 5.6 g/dL (6.3-8.2)
[2020-09-09 07:45] LABS: BLOOD UREA NITROGEN < 2 mg/dL (7-20)
[2020-09-09] MEDS: INSULIN REG, HUMAN 100 UNIT/ML 3 ML VIAL (PYX) SUBCUT SCH ×4 (08:00→22:33)
--- NOTE | 2020-09-09 09:39 | PDOC PROGRESS REPORT ---
Subjective Progress Note for:: 09/09/20 Subjective:: 49-year-old male reformed smoker is seen in the emergency department, where the patient presented with complaints of severe nausea, vomiting and abdominal pain. He is a known type II diabetic. He has had a similar clinical presentation before, approximately 10 years ago, when he was first diagnosed with uncontrolled diabetes. The patient had a successful treatment course for his diabetes that included insulin and Metformin. He had significant weight loss and improvement in his glucose control, which allowed him to use Metformin alone for his diabetes regimen. In fact, the patient admits that he insisted to his doctor that he was "cured" of diabetes. He was advised that this was not the case. Nonetheless, the patient discontinued Metformin almost 2 years ago. He has a history of chronic pain secondary to back injury. He was established w ith the pain clinic and now receives methadone refills from his primary care provider. 09/06: Anion gap is closed. Still on insulin infusion. Requesting p.o. diet. No new complaints. Serum sodium 128. Hemoglobin A1c 13.4%. 09/07: Anion gap remains closed. On diabetic diet. On Lantus 40 units subcutaneously every 12 hours with sliding scale insulin. Glucose values over the past 24 hours: 654811. Serum sodium 129. 09/08: Tolerating p.o. diet. On Lantus 40 units subcutaneously every 12 hours with sliding scale insulin. Anger stick glucose values over the past 24 hours: 752527. Serum sodium 130. Reason For Visit: DKA (DIABETIC KETOACIDOSES) Physical Exam Vital Signs: Temp Pulse Resp BP Pulse Ox 98.9 F 114 H 18 106/65 91 L 09/09/20 08:28 09/09/20 07:16 09/09/20 07:16 09/09/20 07:16 09/09/20 07:16 Intake & Output 09/08/20 09/09/20 09/10/20 06:59 06:59 06:59 Intake Total 1592 1182 Output Total 0054 5263 Balance -1506 -4446 Weight 105.8 kg 108.9 kg General appearance: PRESENT: no acute distress, cooperative, well-developed Head exam: PRESENT: atraumatic Eye exam: PRESENT: PERRLA Mouth exam: PRESENT: moist, tongue midline Teeth exam: PRESENT: poor dentation Neck exam: ABSENT: carotid bruit, JVD, lymphadenopathy, thyromegaly Cardiovascular exam: PRESENT: RRR. ABSENT: diastolic murmur, rubs, systolic murmur GI/Abdominal exam: PRESENT: normal bowel sounds, soft. ABSENT: distended, guarding, mass, organolmegaly, rebound, tenderness Rectal exam: PRESENT: deferred Extremities exam: PRESENT: full ROM. ABSENT: calf tenderness, clubbing, pedal edema Neurological exam: PRESENT: alert, awake, oriented to person, oriented to place, oriented to time, oriented to situation, CN II-XII grossly intact. ABSENT: motor sensory deficit Psychiatric exam: PRESENT: appropriate affect, normal mood. ABSENT: homicidal ideation, suicidal ideation Results Laboratory Results: 09/09/20 06:37 09/09/20 06:37 09/08/20 09/08/20 09/08/20 11:02 15:17 19:11 WBC RBC Hgb Hct MCV MCH MCHC RDW Plt Count Seg Neutrophils % Sodium 129.1 L 131.9 L Cancelled Potassium 3.9 3.6 Cancelled Chloride 98 97 L Cancelled Carbon Dioxide 26 28 Cancelled Anion Gap 5 7 Cancelled BUN 3 L 2 L Cancelled Creatinine 0.50 L 0.48 L Cancelled Est GFR ( Amer) > 60 > 60 Cancelled Est GFR (Non-Af Amer) Cancelled Glucose 309 H 111 H Cancelled Calcium 8.9 8.9 Cancelled Magnesium Total Bilirubin AST Alkaline Phosphatase Total Protein Albumin 09/08/20 09/08/20 09/09/20 20:45 22:56 03:01 WBC RBC Hgb Hct MCV MCH MCHC RDW Plt Count Seg Neutrophils % Sodium 129.1 L 129.4 L 131.6 L Potassium 3.4 L 3.4 L 3.5 L Chloride 96 L 95 L 99 Carbon Dioxide 26 27 27 Anion Gap 7 7 6 BUN < 2 L < 2 L 3 L Creatinine 0.52 0.57 0.56 Est GFR ( Amer) > 60 > 60 > 60 Est GFR (Non-Af Amer) Glucose 114 H 159 H 265 H Calcium 8.7 8.6 8.3 L Magnesium Total Bilirubin AST Alkaline Phosphatase Total Protein Albumin 09/09/20 09/09/20 06:37 06:37 WBC 3.1 L RBC 2.82 L Hgb 9.8 L Hct 26.1 L MCV 93 MCH 34.7 H MCHC 37.5 H RDW 13.2 Plt Count 152 Seg Neutrophils % 60.1 Sodium 133.3 L Potassium 3.8 Chloride 98 Carbon Dioxide 26 Anion Gap 9 BUN < 2 L Creatinine 0.54 Est GFR ( Amer) > 60 Est GFR (Non-Af Amer) Glucose 262 H Calcium 8.6 Magnesium 1.2 L* Total Bilirubin 0.7 AST 53 Alkaline Phosphatase 76 Total Protein 5.6 L Albumin 3.1 L 09/05/20 16:07 Blood Blood Culture (PCR) - Final Staphylococcus Species 09/05/20 09/05/20 09/05/20 10:29 15:30 15:30 Creatine Kinase 51 L Troponin I 0.015 0.012 09/05/20 09/05/20 09/06/20 23:01 23:01 03:26 Creatine Kinase 53 L 50 L Troponin I 0.014 09/06/20 03:26 Creatine Kinase Troponin I 0.013 Impressions: Abdomen/Pelvis CT 09/05/20 11:47 IMPRESSION: NO SIGNIFICANT OR ACUTE PROCESS IN THE ABDOMEN OR PELVIS. Assessment and Plan - Diagnosis (1) DKA (diabetic ketoacidoses) Qualifiers: Diabetes mellitus type: type 2 Diabetes mellitus complication detail: without coma Qualified Code(s): E11.10 - Type 2 diabetes mellitus with ketoacidosis without coma Is this a current diagnosis for this admission?: Yes Plan: DKA resolved but will need improved glucose control. Increase Lantus to 50 units subcutaneously every 12 hours. Continue sliding scale insulin. Stop IV fluids. 09/09/2020-latest blood sugar is 302. On insulin sliding scale, Lantus 50 units subcu twice a day. Diet exercise weight loss lifestyle modifications discussed with the patient. (2) Hyponatremia Is this a current diagnosis for this admission?: Yes Plan: Improving. Mild hyponatremia a component of pseudohyponatremia. Monitor serial sodium. 09/09/2020-latest serum sodium is 133. Hyponatremia is resolving. Most likely secondary to uncontrolled diabetes mellitus. (3) Chronically on opiate therapy Is this a current diagnosis for this admission?: No Plan: Continue home methadone dosing. (4) Umbilical hernia Is this a current diagnosis for this admission?: Yes - Time Anticipated Discharge Disposition: Home, Self Care Anticipated Discharge Timeframe: within 48 hours
[2020-09-09 10:08] LABS: ABSOLUTE LYMPHOCYTES (AUTO) 1.3 10^3/uL (0.5-4.7); ABSOLUTE MONOCYTES (AUTO) 0.4 10^3/uL (0.1-1.4); ABSOLUTE NEUT (AUTO) 2.2 10^3/uL (1.7-8.2); BASOPHILS % (AUTO) 0.8 % (0-2); EOSINOPHILS % (AUTO) 0.6 % (0-6); HEMATOCRIT 28.2 % (37.9-51.0); HEMOGLOBIN 10.4 g/dL (13.5-17.0); LYMPHOCYTES % (AUTO) 32.8 % (13-45); MEAN CORPUSCULAR HEMOGLOBIN 34.4 pg (27.0-33.4); MEAN CORPUSCULAR HGB CONC 36.9 g/dL (32.0-36.0); MEAN CORPUSCULAR VOLUME 93 fl (80-97); MONOCYTES % (AUTO) 9.4 % (3-13); PLATELET COUNT 164 10^3/uL (150-450); RED BLOOD COUNT 3.03 10^6/uL (4.35-5.55); RED CELL DISTRIBUTION WIDTH 13.4 % (11.5-14.0); SEGMENTED NEUTROPHILS % (AUTO) 56.4 % (42-78); TOTAL CELLS COUNTED % (AUTO) 100 %
[2020-09-09] MEDS: BENZTROPINE MESYLATE 1 MG TABLET PO SCH ×2 (10:51→22:33)
[2020-09-09] MEDS: LAMOTRIGINE 100 MG TABLET PO SCH ×2 (10:51→22:33)
[2020-09-09] MEDS: INSULIN GLARGINE,HUM.REC.ANLOG 1,000 UNIT/10 ML VIAL SUBCUT SCH ×2 (10:52→22:40)
[2020-09-09] MEDS: MAGNESIUM SULFATE/D5W 1 GM/100 ML RTUPB IV SCH ×2 (10:52→14:28)
[2020-09-09] MEDS: PANTOPRAZOLE SODIUM 40 MG VIAL IV SCH (10:52)
[2020-09-09] MEDS: NYSTATIN CREAM 15 GM TP SCH ×2 (10:53→22:34)
[2020-09-09] MEDS: NORMAL SALINE 1000 ML 1,000 ML IV PRN ×2 (11:02→23:43)
[2020-09-09] MEDS: PIPERACILLIN SODIUM/TAZOBACTAM 3.375 GM in NORMAL SALINE 100 ML IV SCH ×2 (11:41→22:40)
[2020-09-09] MEDS: ACETAMINOPHEN 325 MG TABLET PO PRN ×2 (11:47→20:21)
--- NOTE | 2020-09-09 12:09 | RADIOLOGY REPORT (SQ) ---
EXAM DESCRIPTION: CHEST 2 VIEWS IMAGES COMPLETED DATE/TIME: 09/09/2020 11:38 am REASON FOR STUDY: sepsis COMPARISON: None. EXAM PARAMETERS: NUMBER OF VIEWS: two views TECHNIQUE: Digital Frontal and Lateral radiographic views of the chest acquired. RADIATION DOSE: NA LIMITATIONS: none FINDINGS: LUNGS AND PLEURA: No opacities, masses or pneumothorax. No pleural effusion. MEDIASTINUM AND HILAR STRUCTURES: No masses or contour abnormalities. HEART AND VASCULAR STRUCTURES: Heart normal size. No evidence for failure. BONES: No acute findings. HARDWARE: None in the chest. OTHER: No other significant finding. IMPRESSION: NO ACUTE RADIOGRAPHIC FINDING IN THE CHEST. TECHNICAL DOCUMENTATION: JOB ID: [id number] 2010 [employer]- All Rights Reserved Reading location - IP/workstation name: [email or web address]
[2020-09-09] MEDS ORDERED: PIPERACILLIN SODIUM/TAZOBACTAM 3.375 GM in NORMAL SALINE 100 ML IV SCH (14:00)
[2020-09-09] MEDS ORDERED: PIPERACILLIN/TAZOBACTAM 3.375 GM VIAL IV SCH (14:00)
[2020-09-09] MEDS ORDERED: MAGNESIUM SULFATE/D5W 1 GM/100 ML RTUPB IV ONE (14:23)
[2020-09-09] MEDS: PANTOPRAZOLE SODIUM 40 MG TABLET.DR PO SCH (17:07)
[2020-09-09] MEDS ORDERED: RISPERIDONE 1 MG TABLET PO SCH (18:00)
[2020-09-09] MEDS: METHADONE HCL 10 MG TABLET PO PRN (20:48)
[2020-09-10] MEDS: PANTOPRAZOLE SODIUM 40 MG TABLET.DR PO SCH ×2 (06:05→17:40)
[2020-09-10] MEDS: PIPERACILLIN SODIUM/TAZOBACTAM 3.375 GM in NORMAL SALINE 100 ML IV SCH (06:05)
[2020-09-10] MEDS: HEPARIN SOD (PORCINE) 5,000 UNIT/ML 1 ML VIAL SUBCUT SCH ×3 (06:05→21:56)
[2020-09-10 06:45] LABS: ABSOLUTE LYMPHOCYTES (AUTO) 0.7 10^3/uL (0.5-4.7); ABSOLUTE MONOCYTES (AUTO) 0.2 10^3/uL (0.1-1.4); ABSOLUTE NEUT (AUTO) 2.5 10^3/uL (1.7-8.2); BASOPHILS % (AUTO) 0.7 % (0-2); EOSINOPHILS % (AUTO) 0.3 % (0-6); HEMATOCRIT 26.9 % (37.9-51.0); HEMOGLOBIN 9.9 g/dL (13.5-17.0); MEAN CORPUSCULAR HEMOGLOBIN 34.4 pg (27.0-33.4); MEAN CORPUSCULAR HGB CONC 36.9 g/dL (32.0-36.0); MEAN CORPUSCULAR VOLUME 93 fl (80-97); MONOCYTES % (AUTO) 7.1 % (3-13); PLATELET COUNT 149 10^3/uL (150-450); RED BLOOD COUNT 2.88 10^6/uL (4.35-5.55); RED CELL DISTRIBUTION WIDTH 13.3 % (11.5-14.0); SEGMENTED NEUTROPHILS % (AUTO) 72.9 % (42-78); TOTAL CELLS COUNTED % (AUTO) 100 %; WHITE BLOOD COUNT 3.5 10^3/uL (4.0-10.5)
[2020-09-10 07:26] LABS: ALKALINE PHOSPHATASE 67 U/L (38-126); ANION GAP 6 (5-19); ASPARTATE AMINO TRANSFERASE 38 U/L (17-59); BILIRUBIN,DIRECT 0.4 mg/dL (0.0-0.4); CALCIUM 8.1 mg/dL (8.4-10.2); CARBON DIOXIDE 30 mmol/L (22-30); CHLORIDE 93 mmol/L (98-107); GLUCOSE 191 mg/dL (75-110); POTASSIUM 3.5 mmol/L (3.6-5.0); TOTAL PROTEIN 5.2 g/dL (6.3-8.2)
[2020-09-10 07:27] LABS: BLOOD UREA NITROGEN < 2 mg/dL (7-20)
[2020-09-10] MEDS: MAGNESIUM SULFATE/D5W 1 GM/100 ML RTUPB IV SCH ×2 (08:13→10:59)
[2020-09-10] MEDS: INSULIN REG, HUMAN 100 UNIT/ML 3 ML VIAL (PYX) SUBCUT SCH ×4 (08:13→21:57)
--- NOTE | 2020-09-10 09:00 | PDOC PROGRESS REPORT ---
Subjective Progress Note for:: 09/10/20 Subjective:: 49-year-old male reformed smoker is seen in the emergency department, where the patient presented with complaints of severe nausea, vomiting and abdominal pain. He is a known type II diabetic. He has had a similar clinical presentation before, approximately 10 years ago, when he was first diagnosed with uncontrolled diabetes. The patient had a successful treatment course for his diabetes that included insulin and Metformin. He had significant weight loss and improvement in his glucose control, which allowed him to use Metformin alone for his diabetes regimen. In fact, the patient admits that he insisted to his doctor that he was "cured" of diabetes. He was advised that this was not the case. Nonetheless, the patient discontinued Metformin almost 2 years ago. He has a history of chronic pain secondary to back injury. He was established w ith the pain clinic and now receives methadone refills from his primary care provider. 09/06: Anion gap is closed. Still on insulin infusion. Requesting p.o. diet. No new complaints. Serum sodium 128. Hemoglobin A1c 13.4%. 09/07: Anion gap remains closed. On diabetic diet. On Lantus 40 units subcutaneously every 12 hours with sliding scale insulin. Glucose values over the past 24 hours: [id number]. Serum sodium 129. 09/08: Tolerating p.o. diet. On Lantus 40 units subcutaneously every 12 hours with sliding scale insulin. Anger stick glucose values over the past 24 hours: 431500. Serum sodium 130. 09/10/2020-patient is comfortably in the bed alert awake oriented. T-max is 100.8. Blood cultures are positive for staph. To discontinue Zosyn started on IV levofloxacin and IV vancomycin. Reason For Visit: DKA (DIABETIC KETOACIDOSES) Physical Exam Vital Signs: Temp Pulse Resp BP Pulse Ox 100.8 F H 114 H 19 126/70 H 98 09/10/20 08:00 09/10/20 08:00 09/10/20 08:00 09/10/20 08:00 09/10/20 08:00 Intake & Output 09/09/20 09/10/20 09/11/20 06:59 06:59 06:59 Intake Total 1182 4013 Output Total 3600 2600 Balance -2418 1413 Weight 108.9 kg 110.4 kg General appearance: PRESENT: no acute distress, obese Head exam: PRESENT: atraumatic Eye exam: PRESENT: PERRLA Mouth exam: PRESENT: moist, tongue midline Teeth exam: PRESENT: poor dentation Neck exam: ABSENT: carotid bruit, JVD, lymphadenopathy, thyromegaly Respiratory exam: PRESENT: decreased breath sounds Cardiovascular exam: PRESENT: RRR. ABSENT: diastolic murmur, rubs, systolic murmur Pulses: PRESENT: normal dorsalis pedis pul GI/Abdominal exam: PRESENT: normal bowel sounds, soft. ABSENT: distended, guarding, mass, organolmegaly, rebound, tenderness Rectal exam: PRESENT: deferred Extremities exam: PRESENT: full ROM. ABSENT: calf tenderness, clubbing, pedal edema Neurological exam: PRESENT: alert, awake, oriented to person, oriented to place, oriented to time, oriented to situation, CN II-XII grossly intact. ABSENT: motor sensory deficit Psychiatric exam: PRESENT: appropriate affect, normal mood. ABSENT: homicidal ideation, suicidal ideation Results Laboratory Results: 09/10/20 05:48 09/10/20 05:48 09/09/20 09/10/20 09/10/20 08:34 05:48 05:48 WBC 4.0 3.5 L RBC 3.03 L 2.88 L Hgb 10.4 L 9.9 L Hct 28.2 L 26.9 L MCV 93 93 MCH 34.4 H 34.4 H MCHC 36.9 H 36.9 H RDW 13.4 13.3 Plt Count 164 149 L Seg Neutrophils % 56.4 72.9 Sodium 129.1 L Potassium 3.5 L Chloride 93 L Carbon Dioxide 30 Anion Gap 6 BUN < 2 L Creatinine 0.53 Est GFR ( Amer) > 60 Glucose 191 H Calcium 8.1 L Magnesium 1.4 L Total Bilirubin 1.0 AST 38 Alkaline Phosphatase 67 Total Protein 5.2 L Albumin 3.0 L 09/09/20 06:50 Blood Blood Culture (PCR) - Final Staphylococcus Aureus 09/05/20 16:07 Blood Blood Culture (PCR) - Final Staphylococcus Species 09/05/20 16:07 Blood Blood Culture - Final Staphylococcus Epidermidis Gram Negative Rods 09/05/20 09/05/20 09/05/20 10:29 15:30 15:30 Creatine Kinase 51 L Troponin I 0.015 0.012 09/05/20 09/05/2009/06/20 23:01 23:01 03:26 Creatine Kinase 53 L 50 L Troponin I 0.014 09/06/20 03:26 Creatine Kinase Troponin I 0.013 Impressions: Abdomen/Pelvis CT 09/05/20 11:47 IMPRESSION: NO SIGNIFICANT OR ACUTE PROCESS IN THE ABDOMEN OR PELVIS. Chest X-Ray 09/09/20 00:00 IMPRESSION: NO ACUTE RADIOGRAPHIC FINDING IN THE CHEST. Assessment and Plan - Diagnosis (1) DKA (diabetic ketoacidoses) Qualifiers: Diabetes mellitus type: type 2 Diabetes mellitus complication detail: without coma Qualified Code(s): E11.10 - Type 2 diabetes mellitus with ketoacidosis without coma Is this a current diagnosis for this admission?: Yes Plan: DKA resolved but will need improved glucose control. Increase Lantus to 50 units subcutaneously every 12 hours. Continue sliding scale insulin. Stop IV fluids. 09/09/2020-latest blood sugar is 302. On insulin sliding scale, Lantus 50 units subcu twice a day. Diet exercise weight loss lifestyle modifications discussed with the patient. 09/10/2020-latest blood sugar is 212. Better controlled. Plan is to continue insulin sliding scale before meals and at bedtime and to continue Lantus 50 units subcu twice a day. (2) Hyponatremia Is this a current diagnosis for this admission?: Yes Plan: Improving. Mild hyponatremia a component of pseudohyponatremia. Monitor serial sodium. 09/09/2020-latest serum sodium is 133. Hyponatremia is resolving. Most likely secondary to uncontrolled diabetes mellitus. 09/10/2020-serum sodium is 129. Chronic hyponatremia may be secondary to antipsychotics. Patient mental status at baseline. (3) Chronically on opiate therapy Is this a current diagnosis for this admission?: No Plan: Continue home methadone dosing. (4) Umbilical hernia Is this a current diagnosis for this admission?: Yes - Time Anticipated Discharge Disposition: Home, Self Care Anticipated Discharge Timeframe: within 72 hours
[2020-09-10] MEDS ORDERED: VANCOMYCIN HCL INJ 1000 MG VIAL IV SCH (10:00)
[2020-09-10] MEDS ORDERED: AMPHETAMINE PO SCH (10:00)
[2020-09-10] MEDS ORDERED: DEXTROAMPHETAMINE PO SCH (10:00)
[2020-09-10] MEDS ORDERED: VANCOMYCIN HCL 1,500 MG in DEXTROSE 5%-WATER 250 ML IV SCH (10:00)
[2020-09-10] MEDS ORDERED: (PENDING PHARMACY ID) (Lisinopril/Hydrochlorothiazide [Lisinopril-Hctz 10-12.5 Mg Tab] 1 E PO SCH (10:00)
[2020-09-10] MEDS ORDERED: OXCARBAZEPINE 450 MG PO SCH (10:00)
[2020-09-10] MEDS: LAMOTRIGINE 100 MG TABLET PO SCH ×4 (10:51→21:55)
[2020-09-10] MEDS: ACETAMINOPHEN 325 MG TABLET PO PRN (11:05)
[2020-09-10] MEDS: BENZTROPINE MESYLATE 1 MG TABLET PO SCH ×2 (11:06→21:56)
[2020-09-10] MEDS: LORATADINE 10 MG TABLET PO SCH (11:06)
[2020-09-10] MEDS: ERGOCALCIFEROL (VITAMIN D2) 50000 UNIT (1.25 MG) CAPSULE PO SCH (11:06)
[2020-09-10] MEDS: NYSTATIN CREAM 15 GM TP SCH ×2 (11:07→21:57)
[2020-09-10] MEDS: PROPRANOLOL HCL 20 MG TABLET PO SCH ×3 (11:07→17:41)
[2020-09-10] MEDS: INSULIN GLARGINE,HUM.REC.ANLOG 1,000 UNIT/10 ML VIAL SUBCUT SCH ×2 (11:08→21:55)
[2020-09-10] MEDS: FLUTICASONE/VILANTEROL 200-25 MCG/DOSE IH SCH (11:08)
[2020-09-10] MEDS ORDERED: PAROXETINE HCL 20 MG TABLET PO ONE (12:00)
[2020-09-10] MEDS: HYDROCHLOROTHIAZIDE 12.5 MG TABLET PO SCH (13:04)
[2020-09-10] MEDS: LISINOPRIL 10 MG TABLET PO SCH (13:04)
[2020-09-10] MEDS: OXCARBAZEPINE 150 MG TABLET PO SCH ×2 (13:57→17:41)
[2020-09-10] MEDS: LEVOFLOXACIN 750 MG/D5W RTU 750 MG/150 ML RTUPB IV SCH ×2 (13:57→17:39)
[2020-09-10] MEDS: METHADONE HCL 10 MG TABLET PO PRN (13:59)
[2020-09-10] MEDS: VANCOMYCIN HCL 1,500 MG in DEXTROSE 5%-WATER 250 ML IV SCH ×2 (17:36→21:58)
[2020-09-10] MEDS ORDERED: LEVOFLOXACIN 750 MG TABLET PO ONE (20:00)
[2020-09-10] MEDS: PAROXETINE HCL 20 MG TABLET PO SCH (21:41)
[2020-09-11] MEDS: VANCOMYCIN HCL 1,500 MG in DEXTROSE 5%-WATER 250 ML IV SCH ×3 (06:06→21:12)
[2020-09-11] MEDS: HEPARIN SOD (PORCINE) 5,000 UNIT/ML 1 ML VIAL SUBCUT SCH ×3 (06:06→21:08)
[2020-09-11] MEDS: NORMAL SALINE 1000 ML 1,000 ML IV PRN ×2 (06:06→21:21)
[2020-09-11] MEDS: PANTOPRAZOLE SODIUM 40 MG TABLET.DR PO SCH ×2 (06:06→18:24)
[2020-09-11] MEDS: METHADONE HCL 10 MG TABLET PO PRN ×2 (07:01→21:09)
[2020-09-11 07:07] LABS: HEMATOCRIT 26.1 % (37.9-51.0); HEMOGLOBIN 9.6 g/dL (13.5-17.0); MEAN CORPUSCULAR HEMOGLOBIN 34.3 pg (27.0-33.4); MEAN CORPUSCULAR HGB CONC 36.9 g/dL (32.0-36.0); MEAN CORPUSCULAR VOLUME 93 fl (80-97); PLATELET COUNT 165 10^3/uL (150-450); RED CELL DISTRIBUTION WIDTH 13.6 % (11.5-14.0); WHITE BLOOD COUNT 4.1 10^3/uL (4.0-10.5)
[2020-09-11 07:26] LABS: ALBUMIN 2.7 g/dL (3.5-5.0); ALKALINE PHOSPHATASE 61 U/L (38-126); ANION GAP 8 (5-19); ASPARTATE AMINO TRANSFERASE 50 U/L (17-59); BILIRUBIN,DIRECT 0.3 mg/dL (0.0-0.4); BILIRUBIN,TOTAL 1.5 mg/dL (0.2-1.3); BLOOD UREA NITROGEN 9 mg/dL (7-20); CALCIUM 7.8 mg/dL (8.4-10.2); CARBON DIOXIDE 30 mmol/L (22-30); CHLORIDE 90 mmol/L (98-107); GLUCOSE 80 mg/dL (75-110); POTASSIUM 3.4 mmol/L (3.6-5.0)
[2020-09-11] MEDS: INSULIN REG, HUMAN 100 UNIT/ML 3 ML VIAL (PYX) SUBCUT SCH ×4 (07:44→21:20)
[2020-09-11 07:56] LABS: ABSOLUTE LYMPHOCYTES# (MANUAL) 1.1 10^3/uL (0.5-4.7); ABSOLUTE MONOCYTES # (MANUAL) 0.6 10^3/uL (0.1-1.4); BAND NEUTROPHILS % (MANUAL) 2 % (3-5); BASOPHILS % (MANUAL) 0 % (0-2); EOSINOPHILS % (MANUAL) 1 % (0-6); LYMPHOCYTES % (MANUAL) 26 % (13-45); MONOCYTES % (MANUAL) 14 % (3-13); SEGMENTED NEUTROPHILS % (MAN) 56 % (42-78); TOTAL CELLS COUNTED 100
[2020-09-11 07:59] LABS: PLATELET COMMENT ADEQUATE; POLYCHROMASIA 1+
--- NOTE | 2020-09-11 08:52 | PDOC PROGRESS REPORT ---
Subjective Progress Note for:: 09/11/20 Subjective:: 49-year-old male reformed smoker is seen in the emergency department, where the patient presented with complaints of severe nausea, vomiting and abdominal pain. He is a known type II diabetic. He has had a similar clinical presentation before, approximately 10 years ago, when he was first diagnosed with uncontrolled diabetes. The patient had a successful treatment course for his diabetes that included insulin and Metformin. He had significant weight loss and improvement in his glucose control, which allowed him to use Metformin alone for his diabetes regimen. In fact, the patient admits that he insisted to his doctor that he was "cured" of diabetes. He was advised that this was not the case. Nonetheless, the patient discontinued Metformin almost 2 years ago. He has a history of chronic pain secondary to back injury. He was established w ith the pain clinic and now receives methadone refills from his primary care provider. 09/06: Anion gap is closed. Still on insulin infusion. Requesting p.o. diet. No new complaints. Serum sodium 128. Hemoglobin A1c 13.4%. 09/07: Anion gap remains closed. On diabetic diet. On Lantus 40 units subcutaneously every 12 hours with sliding scale insulin. Glucose values over the past 24 hours: 394173. Serum sodium 129. 09/08: Tolerating p.o. diet. On Lantus 40 units subcutaneously every 12 hours with sliding scale insulin. Anger stick glucose values over the past 24 hours: [id number]. Serum sodium 130. 09/10/2020-patient is comfortably in the bed alert awake oriented. T-max is 100.8. Blood cultures are positive for staph. To discontinue Zosyn started on IV levofloxacin and IV vancomycin. 09/11/2020-patient saying he is not feeling well complaining of generalized weakness. Blood sugar this morning 103. I encouraged him to eat his breakfast. He is also complaining of lack of appetite. ID consult was requested for MSSA bacteremia. To arrange for the MRI of the lumbar spine to rule out hardware infection. Discussed the case with Dr. Samy Solano for possible [place]. Reason For Visit: DKA (DIABETIC KETOACIDOSES) Physical Exam Vital Signs: Temp Pulse Resp BP Pulse Ox 98.0 F 75 21 H 99/62 L 94 09/11/20 08:00 09/11/20 08:00 09/11/20 08:00 09/11/20 08:00 09/11/20 08:00 Intake & Output 09/10/20 09/11/20 09/12/20 06:59 06:59 06:59 Intake Total 4013 2980 Output Total 2600 800 Balance 1413 2180 Weight 110.4 kg 105.4 kg General appearance: PRESENT: no acute distress, cooperative Head exam: PRESENT: atraumatic Eye exam: PRESENT: PERRLA Ear exam: PRESENT: normal external ear exam Mouth exam: PRESENT: neck supple Teeth exam: PRESENT: poor dentation Neck exam: ABSENT: carotid bruit, JVD, lymphadenopathy, thyromegaly Respiratory exam: PRESENT: decreased breath sounds Cardiovascular exam: PRESENT: RRR. ABSENT: diastolic murmur, rubs, systolic murmur Pulses: PRESENT: normal dorsalis pedis pul GI/Abdominal exam: PRESENT: normal bowel sounds, soft. ABSENT: distended, guarding, mass, organolmegaly, rebound, tenderness Rectal exam: PRESENT: deferred Extremities exam: PRESENT: full ROM. ABSENT: calf tenderness, clubbing, pedal edema Neurological exam: PRESENT: alert, awake, oriented to person, oriented to place, oriented to time, oriented to situation, CN II-XII grossly intact. ABSENT: motor sensory deficit Psychiatric exam: PRESENT: appropriate affect, normal mood. ABSENT: homicidal ideation, suicidal ideation Skin exam: PRESENT: dry, intact, warm. ABSENT: cyanosis, rash Results Laboratory Results: 09/11/20 05:55 09/11/20 05:55 09/11/20 09/11/20 05:55 05:55 WBC 4.1 RBC 2.80 L Hgb 9.6 L Hct 26.1 L MCV 93 MCH 34.3 H MCHC 36.9 H RDW 13.6 Plt Count 165 Seg Neutrophils % Not Reportable Sodium 127.5 L Potassium 3.4 L Chloride 90 L Carbon Dioxide 30 Anion Gap 8 BUN 9 Creatinine 0.91 Est GFR ( Amer) > 60 Glucose 80 Calcium 7.8 L Magnesium 1.7 Total Bilirubin 1.5 H AST 50 Alkaline Phosphatase 61 Total Protein 5.0 L Albumin 2.7 L 09/09/20 06:50 Blood Blood Culture (PCR) - Final Staphylococcus Aureus 09/05/20 15:30 Blood Blood Culture - Final NO GROWTH IN 5 DAYS 09/09/20 06:37 Blood Blood Culture (PCR) - Final Staphylococcus Aureus 09/05/20 09/05/20 09/05/20 10:29 15:30 15:30 Creatine Kinase 51 L Troponin I 0.015 0.012 09/05/20 09/05/20 09/06/20 23:01 23:01 03:26 Creatine Kinase 53 L 50 L Troponin I 0.014 09/06/20 03:26 Creatine Kinase Troponin I 0.013 Impressions: Abdomen/Pelvis CT 09/05/20 11:47 IMPRESSION: NO SIGNIFICANT OR ACUTE PROCESS IN THE ABDOMEN OR PELVIS. Chest X-Ray 09/09/20 00:00 IMPRESSION: NO ACUTE RADIOGRAPHIC FINDING IN THE CHEST. Assessment and Plan - Diagnosis (1) DKA (diabetic ketoacidoses) Qualifiers: Diabetes mellitus type: type 2 Diabetes mellitus complication detail: wit hout coma Qualified Code(s): E11.10 - Type 2 diabetes mellitus with ketoa cidosis without coma Is this a current diagnosis for this admission?: Yes Plan: DKA resolved but will need improved glucose control. Increase Lantus to 50 units subcutaneously every 12 hours. Continue sliding scale insulin. Stop IV fluids. 09/09/2020-latest blood sugar is 302. On insulin sliding scale, Lantus 50 units subcu twice a day. Diet exercise weight loss lifestyle modifications discussed with the patient. 09/10/2020-latest blood sugar is 212. Better controlled. Plan is to continue insulin sliding scale before meals and at bedtime and to continue Lantus 50 units subcu twice a day. 09/11/2020-blood sugar this morning is 103. Patient is encouraged to eat. To continue insulin sliding scale at this time. To decrease the Lantus to 25 units twice a day. (2) Hyponatremia Is this a current diagnosis for this admission?: Yes Plan: Improving. Mild hyponatremia a component of pseudohyponatremia. Monitor serial sodium. 09/09/2020-latest serum sodium is 133. Hyponatremia is resolving. Most likely secondary to uncontrolled diabetes mellitus. 09/10/2020-serum sodium is 129. Chronic hyponatremia may be secondary to antipsychotics. Patient mental status at baseline. 09/11/20-serum sodium is 127.5. Patient has chronic hyponatremia. Asympt omatic. (3) Chronically on opiate therapy Is this a current diagnosis for this admission?: No Plan: Continue home methadone dosing. (4) Umbilical hernia Is this a current diagnosis for this admission?: Yes (5) MSSA bacteremia Is this a current diagnosis for this admission?: Yes Plan: 09/11/2020-blood cultures came back positive for MSSA bacteremia. ID consult was requested. Consultation with Dr. Samy Torres is requested for a [place]. Presently on levofloxacin and vancomycin. Antibiotics will be adjusted based on ID recommendations. Sensitive to levofloxacin and vancomycin. - Time Anticipated Discharge Disposition: Home, Self Care Anticipated Discharge Timeframe: within 72 hours
[2020-09-11] MEDS: LISINOPRIL 10 MG TABLET PO SCH (09:50)
[2020-09-11] MEDS: HYDROCHLOROTHIAZIDE 12.5 MG TABLET PO SCH (09:50)
[2020-09-11] MEDS: INSULIN GLARGINE,HUM.REC.ANLOG 1,000 UNIT/10 ML VIAL SUBCUT SCH ×3 (09:51→22:16)
[2020-09-11] MEDS: LAMOTRIGINE 100 MG TABLET PO SCH ×4 (09:57→22:16)
[2020-09-11] MEDS: OXCARBAZEPINE 150 MG TABLET PO SCH ×2 (09:57→18:22)
[2020-09-11] MEDS: LORATADINE 10 MG TABLET PO SCH (09:57)
[2020-09-11] MEDS: FLUTICASONE/VILANTEROL 200-25 MCG/DOSE IH SCH (09:58)
[2020-09-11] MEDS: BENZTROPINE MESYLATE 1 MG TABLET PO SCH ×2 (09:58→21:08)
[2020-09-11] MEDS: PROPRANOLOL HCL 20 MG TABLET PO SCH ×3 (09:58→18:25)
[2020-09-11] MEDS: NYSTATIN CREAM 15 GM TP SCH ×2 (09:59→21:06)
[2020-09-11 14:26] LABS: VANCOMYCIN,TROUGH 11.7 ug/mL (5.0-20.0)
--- NOTE | 2020-09-11 16:16 | RADIOLOGY REPORT (SQ) ---
EXAM DESCRIPTION: MRI LUMBAR SPINE COMBO IMAGES COMPLETED DATE/TIME: 09/11/2020 3:24 pm REASON FOR STUDY: r/o hardware infection in lumbar spine COMPARISON: MRI dated 03/06/[address] abdomen pelvis dated 09/05/2020 TECHNIQUE: Sagittal and Axial imaging includes T1, T1 post gadolinium, T2, STIR and gradient echo se quences. Coronal T2/HASTE imaging. CONTRAST TYPE AND DOSE: 20 mL Prohance. RENAL FUNCTION: Not indicated. ACR Type II contrast agent associated with few, if any, unconfounded cases of NSF LIMITATIONS: Artifact secondary to orthopedic hardware. FINDINGS: VISUALIZED UPPER ABDOMEN: Limited evaluation. No acute or suspicious findings suggested. SEGMENTATION: No transitional anatomy. The lowest well-developed disc space is labeled L5-S1. ALIGNMENT: Anatomic. VERTEBRAE: Intact. No fractures. BONE MARROW: Normal. No marrow replacement or reactive changes. DISC SIGNAL: Multilevel desiccation. POSTERIOR ELEMENTS: Generally intact. No pars defect evident. HARDWARE: Postsurgical changes at L5 and S1. CORD AND CONUS: Normal in size and signal intensity. Conus at the appropriate level. SOFT TISSUES: No aortic aneurysm seen. No bulky retroperitoneal adenopathy or mass. No paraspinal mas s or fluid. L1-L2: No significant spinal stenosis or exit foraminal stenosis. L2-L3: No significant central stenosis or foraminal narrowing. There is bilateral facet arthropathy. L3-L4: The set arthropathy. No central stenosis or significant foraminal narrowing. L4-L5: Moderate central stenosis. There is disc/ osteophyte complex along with the set arthropathy. Some enhancing scar tissue. No focal fluid collections. L5-S1: Postsurgical changes. No focal fluid collections. No significant epidural fluid collections. Enhancing scar tissue. LOWER THORACIC: Incompletely imaged. No stenosis seen. SACRUM: Visualized upper sacrum intact. ENHANCEMENT: No abnormal enhancement. OTHER: There is significant paraspinous muscle atrophy when compared to 2013. IMPRESSION: Limited study due to artifact from the indwelling hardware. Follow-up studies are recom mended if clinical symptoms persist. Correlation with sed rate and other laboratory values is recomm ended. No focal epidural fluid collections are identified at this time. No abnormal enhancement is appreciated. There is moderate to severe central stenosis at L4-L5 with bilateral foraminal stenosis. This is sig nificantly progressed when compared to prior MRI. TECHNICAL DOCUMENTATION: JOB ID: [id number] 2010 [employer]- All Rights Reserved Reading location - IP/workstation name: [email or web address]
[2020-09-11] MEDS ORDERED: NORMAL SALINE 1000 ML 1,000 ML IV ONE (16:28)
--- NOTE | 2020-09-11 16:49 | XCELERA REPORT ---
[address] [address] Transthoracic Echocardiogram Report Name: KAI OSUNA Age: 49 yrs Gender: Male : 1970 Patient Status: Inpatient Patient Location: [address] [place], [place] [address] Study Date: 09/11/2020 10:44 AM Height: 74 in Weight: 243 lb BSA: 2.4 m2 Procedure: A complete two-dimensional transthoracic echocardiogram was performed (2D, M-mode, spectral and color flow Doppler). The study was technically adequate with some images being suboptimal in quality. Reason For Study: r/o rndocarditis Ordering Physician: CRESENCIO MARTINEZ Performed By: Geno Salgado Interpretation Summary The left ventricle is grossly normal size. Left ventricular systolic function is normal. The Ejection Fraction estimate is 60-65%. Doppler measurements suggest normal left ventricular diastolic function. The left ventricular wall motion is normal. Trace MR, trace TR. Valvular structures were suboptimally visualized therefore cannot reliably assess for valvular vegetations. Recommend transesophageal echocardiogram if clinically indicated. The inferior vena cava appeared normal and decreased < 50% with respiration (RAP 10-15 mmHg) MMode/2D Measurements & Calculations RVDd: 3.5 cm LVIDd: 5.1 cm FS: 41.2 % Ao root diam: 3.1 cm IVSd: 0.97 cm LVIDs: 3.0 cm EDV(Teich): 121.6 ml Ao root area: 7.6 cm2 LVPWd: 0.98 cm ESV(Teich): 34.4 ml LA dimension: 3.9 cm EF(Teich): 71.7 % Doppler Measurements & Calculations MV E max arcelia: MV P1/2t max arcelia: Ao V2 max: LV V1 max P.9 cm/sec 124.4 cm/sec 125.7 cm/sec 4.8 mmHg MV A max arcelia: MV P1/2t: 65.0 msec Ao max P.3 mmHgLV V1 max: 82.9 cm/sec MVA(P1/2t): 3.4 cm2 110.1 cm/sec MV E/A: 1.5 MV dec slope: 560.7 cm/sec2 PA V2 max: TR max arcelia: MV P1/2t-pr_phl: 77.5 cm/sec 265.4 cm/sec 65.0 msec PA max P.4 mmHgTR max P.2 mmHg Left Ventricle The left ventricle is grossly normal size. Left ventricular systolic function is normal. The Ejection Fraction estimate is 60-65%. Doppler measurements suggest normal left ventricular diastolic function. The left ventricular wall motion is normal. Right Ventricle The right ventricle is grossly normal size. The right ventricular systolic function is normal. Atria The right atrium is normal. The left atrial size is normal. Can not rule out PFO/ASD. Mitral Valve The mitral valve is grossly normal. There is no evidence of mitral valve prolapse. There is no mitral valve stenosis. There is a trace amount of mitral regurgitation. Aortic Valve The aortic valve is normal in structure and function. There is no aortic valve stenosis. No aortic regurgitation is present. Tricuspid Valve The tricuspid valve is not well visualized, but is grossly normal. There is a trace or physiologic amount of tricuspid regurgitation. Pulmonic Valve The pulmonic valve is not well visualized. There is no pulmonic valvular regurgitation. Great Vessels The inferior vena cava appeared normal and decreased < 50% with respiration (RAP 10-15 mmHg). Effusions There is no pericardial effusion. : CRESENCIO MARTINEZ Antonio
[2020-09-11] MEDS ORDERED: LEVOFLOXACIN 750 MG TABLET PO SCH (18:00)
[2020-09-11] MEDS: PAROXETINE HCL 20 MG TABLET PO SCH (21:07)
[2020-09-12] MEDS: HEPARIN SOD (PORCINE) 5,000 UNIT/ML 1 ML VIAL SUBCUT SCH ×3 (05:32→21:40)
[2020-09-12] MEDS: VANCOMYCIN HCL 1,500 MG in DEXTROSE 5%-WATER 250 ML IV SCH (05:32)
[2020-09-12] MEDS: PANTOPRAZOLE SODIUM 40 MG TABLET.DR PO SCH ×2 (05:33→17:43)
[2020-09-12 06:21] LABS: HEMATOCRIT 22.7 % (37.9-51.0); HEMOGLOBIN 8.3 g/dL (13.5-17.0); MEAN CORPUSCULAR HEMOGLOBIN 33.7 pg (27.0-33.4); MEAN CORPUSCULAR HGB CONC 36.6 g/dL (32.0-36.0); MEAN CORPUSCULAR VOLUME 92 fl (80-97); PLATELET COUNT 207 10^3/uL (150-450); RED BLOOD COUNT 2.46 10^6/uL (4.35-5.55); RED CELL DISTRIBUTION WIDTH 13.8 % (11.5-14.0); WHITE BLOOD COUNT 4.6 10^3/uL (4.0-10.5)
[2020-09-12 06:35] LABS: ALKALINE PHOSPHATASE 79 U/L (38-126); ANION GAP 10 (5-19); ASPARTATE AMINO TRANSFERASE 44 U/L (17-59); BILIRUBIN,DIRECT 0.3 mg/dL (0.0-0.4); BILIRUBIN,TOTAL 1.2 mg/dL (0.2-1.3); BLOOD UREA NITROGEN 12 mg/dL (7-20); CALCIUM 8.1 mg/dL (8.4-10.2); CARBON DIOXIDE 26 mmol/L (22-30); CHLORIDE 95 mmol/L (98-107); GLUCOSE 170 mg/dL (75-110); POTASSIUM 3.9 mmol/L (3.6-5.0); TOTAL PROTEIN 5.7 g/dL (6.3-8.2)
[2020-09-12 06:56] LABS: ABSOLUTE LYMPHOCYTES# (MANUAL) 0.7 10^3/uL (0.5-4.7); ABSOLUTE MONOCYTES # (MANUAL) 0.3 10^3/uL (0.1-1.4); BAND NEUTROPHILS % (MANUAL) 5 % (3-5); BASOPHILS % (MANUAL) 0 % (0-2); EOSINOPHILS % (MANUAL) 0 % (0-6); LYMPHOCYTES % (MANUAL) 15 % (13-45); MONOCYTES % (MANUAL) 7 % (3-13); SEGMENTED NEUTROPHILS % (MAN) 73 % (42-78); TOTAL CELLS COUNTED 100
[2020-09-12 06:59] LABS: OVALOCYTES SLIGHT; PLATELET COMMENT ADEQUATE; POIKILOCYTOSIS SLIGHT; TOXIC GRANULATION 1+
[2020-09-12] MEDS ORDERED: NORMAL SALINE INJ/PF 0.9% 10 ML SDV ONE (08:46)
[2020-09-12] MEDS: INSULIN REG, HUMAN 100 UNIT/ML 3 ML VIAL (PYX) SUBCUT SCH ×4 (08:54→21:39)
--- NOTE | 2020-09-12 10:22 | Progress Note ---
Provider Note Provider Note: [facility] ID Telephone Advice Consultation Chart reviewed. Patient not examined. This is a 49-year-old man with DM and chronic smoker who was previously well controlled on insulin and meformin but stopped taking metformin and was admitted with DKA on 09/05. Patient presented with nausea, vomiting and abdominal pain. His A1C is 13. CT scan of abdomen and pelvis was unrevealing. He was admitted and placed on insulin IV, gap closed on 09/07 and he was transferred out of the ICU. Blood cultures on admission had MRSE and GNR that has not been identified yet. He had a low grade fever on 09/09 and new blood cultures were drawn growing MSSA from both sets of cultures, no GNR identified on new cultures. He has a penicillin allergy, he was started on vancomycin and levofloxacin. He has hardware in his back and was complaining of back pain (he does have chronic back pain for which he is on methadone). MRI of the lumbar spine showed worsening chronic changes with moderate to severe stenosis, no epidural fluid collections. A CAROLINA is pending, ID consulted for recommendations. Allergies: bupropion [Bupropion] Adverse Reaction (Mild, Verified 09/05/20 09:50) eszopiclone [From Lunesta] Adverse Reaction (Mild, Verified 09/05/20 09:50) fluoxetine HCl [From Symbyax] Adverse Reaction (Mild, Verified 09/05/20 09:50) gabapentin [From Neurontin] Adverse Reaction (Mild, Verified 09/05/20 09:50) olanzapine [From Symbyax] Adverse Reaction (Mild, Verified 09/05/20 09:50) oxycodone HCl [From OxyContin] Adverse Reaction (Unknown, Verified 09/05/20 09:50) surgical tape Adverse Reaction (Uncoded 09/05/20 09:50) Medications: Esomeprazole Mag Trihydrate [Nexium] 40 mg PO QAM 11/13/11 Benztropine Mesylate [Cogentin 1 mg Tablet] 1 tab PO BID 09/05/20 Budesonide/Formoterol Fumarate [Symbicort Hfa 160-4.5 Mcg Inhaler 6 gm] 2 puff IH Q12 09/05/20 Dextroamphetamine/Amphetamine [Adderall 10 mg Tablet] 40 mg PO BID 09/05/20 Diclofenac Sodium 2 gm TP BID 09/05/20 Ergocalciferol (Vitamin D2) [Vitamin D2] 50,000 unit PO Q7D 09/05/20 Ibuprofen [Motrin 800 mg Tablet] 800 mg PO Q8HP PRN 09/05/20 Lisinopril/Hydrochlorothiazide [Lisinopril-Hctz 10-12.5 mg Tab] 1 each PO DAILY 09/05/20 Loratadine [Claritin 10 mg Tablet] 10 mg PO DAILY 09/05/20 Methadone HCl [Dolophine 10 Mg Tablet] 20 mg PO Q6HP PRN 09/05/20 Oxcarbazepine 450 mg PO BID 09/05/20 Propranolol HCl [Inderal 20 mg Tablet] 20 mg PO TID 09/05/20 Risperidone [Risperdal 1 mg Tablet] 3 mg PO BID 09/05/20 Zolpidem Tartrate [Ambien Cr] 12.5 mg PO QHS 09/05/20 Vital Signs: Temp Pulse Resp BP Pulse Ox 97.2 F 69 18 111/60 98 09/12/20 07:32 09/12/20 07:32 09/12/20 07:32 09/12/20 07:32 09/12/20 07:32 Intake & Output 09/11/20 09/12/20 09/13/20 06:59 06:59 06:59 Intake Total 2980 2790 1000 Output Total 800 Balance 2180 2790 1000 Weight 105.4 kg 105.4 kg Weight/Height Weight 105.4 kg Height 6 ft 2 in Laboratories: 09/12/20 05:36 09/12/20 05:36 MCV 92 fl (80-97) 09/12/20 05:36 MCH 33.7 pg (27.0-33.4) H 09/12/20 05:36 MCHC 36.6 g/dL (32.0-36.0) H 09/12/20 05:36 RDW 13.8 % (11.5-14.0) 09/12/20 05:36 Seg Neutrophils % Not Reportable 09/12/20 05:36 Carbonic Acid 0.98 mmol/L (1.05-1.35) L 09/05/20 18:43 HCO3/H2CO3 Ratio 17:1 09/05/20 18:43 ABG pH 7.34 (7.35-7.45) L 09/05/20 18:43 ABG pCO2 32.7 mmHg (35-45) L 09/05/20 18:43 ABG pO2 106.0 mmHg (80-100) H 09/05/20 18:43 ABG HCO3 17.4 mmol/L (20-24) L 09/05/20 18:43 ABG O2 Saturation 97.7 % (94-98) 09/05/20 18:43 ABG Base Excess -7.1 mmol/L 09/05/20 18:43 VBG pH 7.27 (7.30-7.42) L 09/05/20 15:30 VBG pCO2 33.7 mmHg (35-63) L 09/05/20 15:30 VBG HCO3 15.2 mmol/L (20-32) L 09/05/20 15:30 VBG Base Excess -10.1 mmol/L 09/05/20 15:30 FiO2 ROOM AIR 09/05/20 18:43 Chloride 95 mmol/L (98-107) L 09/12/20 05:36 Carbon Dioxide 26 mmol/L (22-30) 09/12/20 05:36 Anion Gap 10 (5-19) 09/12/20 05:36 Est GFR ( Amer) > 60 (>60) 09/12/20 05:36 Est GFR (Non-Af Amer) Cancelled 09/08/20 19:11 Glucose 170 mg/dL (75-110) H 09/12/20 05:36 Lactic Acid 1.1 mmol/L (0.7-2.1) 09/05/20 19:26 Calcium 8.1 mg/dL (8.4-10.2) L 09/12/20 05:36 Phosphorus 2.0 mg/dL (2.5-4.5) L 09/06/20 22:52 Magnesium 1.7 mg/dL (1.6-2.3) 09/11/20 05:55 Total Bilirubin 1.2 mg/dL (0.2-1.3) 09/12/20 05:36 AST 44 U/L (17-59) 09/12/20 05:36 Alkaline Phosphatase 79 U/L (38-126) 09/12/20 05:36 Total Protein 5.7 g/dL (6.3-8.2) L 09/12/20 05:36 Albumin 3.0 g/dL (3.5-5.0) L 09/12/20 05:36 Triglycerides 761 mg/dL (<150) H 09/06/20 03:26 Cholesterol 265.24 mg/dL (0-200) H 09/06/20 03:26 LDL Cholesterol Direct 59 mg/dL (<100) 09/06/20 03:26 HDL Cholesterol 27 mg/dL (>40) L 09/06/20 03:26 Lipase 183.1 U/L (23-300) 09/05/20 10:29 Urine Color STRAW 09/05/20 09:59 Urine Appearance CLEAR 09/05/20 09:59 Urine pH 6.0 (5.0-9.0) 09/05/20 09:59 Ur Specific [place] 1.027 09/05/20 09:59 Urine Protein NEGATIVE mg/dL (NEGATIVE) 09/05/20 09:59 Urine Glucose (UA) >=500 mg/dL (NEGATIVE) H 09/05/20 09:59 Urine Ketones 20 mg/dL (NEGATIVE) H 09/05/20 09:59 Urine Blood NEGATIVE (NEGATIVE) 09/05/20 09:59 Urine Nitrite NEGATIVE (NEGATIVE) 09/05/20 09:59 Ur Leukocyte Esterase NEGATIVE (NEGATIVE) 09/05/20 09:59 Urine WBC (Auto) 0 /HPF 09/05/20 09:59 09/09/20 06:37 Blood Blood Culture (PCR) - Final Staphylococcus Aureus 09/09/20 06:37 Blood Blood Culture - Final Staphylococcus Aureus 09/09/20 06:50 Blood Blood Culture (PCR) - Final Staphylococcus Aureus 09/09/20 06:50 Blood Blood Culture - Final Staphylococcus Aureus 09/05/20 09/05/20 09/05/20 10:29 15:30 15:30 Creatine Kinase 51 L Troponin I 0.015 0.012 09/05/20 09/05/20 09/06/20 23:01 23:01 03:26 Creatine Kinase 53 L 50 L Troponin I 0.014 09/06/20 03:26 Creatine Kinase Troponin I 0.013 Radiology: Abdomen/Pelvis CT 09/05/20 11:47 IMPRESSION: NO SIGNIFICANT OR ACUTE PROCESS IN THE ABDOMEN OR PELVIS. Chest X-Ray 09/09/20 00:00 IMPRESSION: NO ACUTE RADIOGRAPHIC FINDING IN THE CHEST. Lumbar Spine MRI 09/11/20 00:00 IMPRESSION: Limited study due to artifact from the indwelling hardware. Follow-up studies are recommended if clinical symptoms persist. Correlation with sed rate and other laboratory values is recommended. No focal epidural fluid collections are identified at this time. No abnormal enhancement is appreciated. There is moderate to severe central stenosis at L4-L5 with bilateral foraminal stenosis. This is significantly progressed when compared to prior MRI. Assessment and Recommendations: Patient evaluated for MSSA bacteremia in the setting of DKA and lumbar spine hardware. He was initially admitted for DKA with initial blood cultures positive for GNR likely translocation from GI tract in the setting of nausea and vomiting. This has not been identified, nor isolated from other blood cultures. MRSE was isolated from that same culture, likely skin contamination. New blood cultures on 09/09 were positive for MSSA on both sets, this was hospital acquired, nevertheless will recommend TTE/CAROLINA and to repeat blood cultures to document clearance of bacteremia. Recommendations will include either zosyn to cover both GNR and MSSA (it would be for 7 days and then transition to cefazolin) or focusing on treating MSSA with cefazolin 2g every 8 hr as the GNR was probably transient bacteremia from GI translocation. Duration of therapy will be at least 4 weeks from negative blood cultures considering that he has orthopedic hardware. If echocardiogram is positive, duration of therapy will be extended to 6 weeks. No evidence of discitis or osteomyelitis per MRI. 1- Discontinue vancomycin and levofloxacin 2- Zosyn for 7 days and then transition to cefazolin OR 3- Cefazolin 2g every 8 hr 4- Minimum of 4 weeks of therapy 5- Repeat blood cultures 6- TTE/CAROLINA Please call back if questions Christine Farris MD [facility] ID [phone]
[2020-09-12] MEDS: PROPRANOLOL HCL 20 MG TABLET PO SCH ×3 (10:30→17:41)
[2020-09-12] MEDS: INSULIN GLARGINE,HUM.REC.ANLOG 1,000 UNIT/10 ML VIAL SUBCUT SCH ×2 (10:55→21:38)
[2020-09-12] MEDS: FLUTICASONE/VILANTEROL 200-25 MCG/DOSE IH SCH (10:55)
[2020-09-12] MEDS ORDERED: LIDOCAINE 2% INJ-PF (20 MG/ML) 10 ML AMPUL ONE (11:41)
[2020-09-12] MEDS ORDERED: PROPOFOL INJ 200 MG/20 ML VIAL IV ONE (11:41)
[2020-09-12] MEDS ORDERED: MORPHINE SULFATE 10 MG/ML INJ IV ONE (12:00)
[2020-09-12] MEDS: NORMAL SALINE 1000 ML 1,000 ML IV PRN (14:04)
[2020-09-12] MEDS: LORATADINE 10 MG TABLET PO SCH (14:06)
[2020-09-12] MEDS: LAMOTRIGINE 100 MG TABLET PO SCH ×3 (14:11→21:41)
[2020-09-12] MEDS: NYSTATIN CREAM 15 GM TP SCH ×2 (14:12→21:44)
[2020-09-12] MEDS: OXCARBAZEPINE 150 MG TABLET PO SCH ×2 (14:18→17:43)
[2020-09-12] MEDS: BENZTROPINE MESYLATE 1 MG TABLET PO SCH ×2 (14:23→21:41)
--- NOTE | 2020-09-12 14:46 | PDOC PROGRESS REPORT ---
Subjective Progress Note for:: 09/12/20 Reason For Visit: DKA (DIABETIC KETOACIDOSES) Physical Exam Vital Signs: Temp Pulse Resp BP Pulse Ox 97.6 F 65 18 96/61 L 96 09/12/20 14:26 09/12/20 14:26 09/12/20 14:26 09/12/20 14:26 09/12/20 14:26 Intake & Output 09/11/20 09/12/20 09/13/20 06:59 06:59 06:59 Intake Total 2980 2790 2500 Output Total 800 Balance 2180 2790 2500 Weight 105.4 kg 105.4 kg General appearance: PRESENT: no acute distress, well-developed, well-nourished, other - sleeping but easily arousable Head exam: PRESENT: atraumatic, normocephalic Eye exam: PRESENT: conjunctiva pink, EOMI, PERRLA. ABSENT: scleral icterus Ear exam: PRESENT: normal external ear exam Mouth exam: PRESENT: moist, tongue midline Neck exam: ABSENT: carotid bruit, JVD, lymphadenopathy, thyromegaly Respiratory exam: PRESENT: clear to auscultation ariadne. ABSENT: rales, rhonchi, wheezes Cardiovascular exam: PRESENT: RRR, +S1, +S2. ABSENT: diastolic murmur, rubs, systolic murmur Pulses: PRESENT: normal dorsalis pedis pul Vascular exam: PRESENT: normal capillary refill GI/Abdominal exam: PRESENT: normal bowel sounds, soft. ABSENT: distended, guarding, mass, organolmegaly, rebound, tenderness Rectal exam: PRESENT: deferred Extremities exam: PRESENT: full ROM, joint swelling - R elbow, UE. ABSENT: calf tenderness, clubbing, pedal edema Neurological exam: PRESENT: alert, awake, oriented to person, oriented to situation, CN II-XII grossly intact. ABSENT: motor sensory deficit Psychiatric exam: PRESENT: appropriate affect, normal mood. ABSENT: homicidal ideation, suicidal ideation Skin exam: PRESENT: dry, intact, warm. ABSENT: cyanosis, rash Results Laboratory Results: 09/12/20 05:36 09/12/20 05:36 09/12/20 09/12/20 05:36 05:36 WBC 4.6 RBC 2.46 L Hgb 8.3 L Hct 22.7 L MCV 92 MCH 33.7 H MCHC 36.6 H RDW 13.8 Plt Count 207 Seg Neutrophils % Not Reportable Sodium 130.9 L Potassium 3.9 Chloride 95 L Carbon Dioxide 26 Anion Gap 10 BUN 12 Creatinine 1.13 Est GFR ( Amer) > 60 Glucose 170 H Calcium 8.1 L Total Bilirubin 1.2 AST 44 Alkaline Phosphatase 79 Total Protein 5.7 L Albumin 3.0 L 09/09/20 06:37 Blood Blood Culture (PCR) - Final Staphylococcus Aureus 09/09/20 06:37 Blood Blood Culture - Final Staphylococcus Aureus 09/05/20 09/05/20 09/05/20 10:29 15:30 15:30 Creatine Kinase 51 L Troponin I 0.015 0.012 09/05/20 09/05/20 09/06/20 23:01 23:01 03:26 Creatine Kinase 53 L 50 L Troponin I 0.014 09/06/20 03:26 Creatine Kinase Troponin I 0.013 Impressions: Abdomen/Pelvis CT 09/05/20 11:47 IMPRESSION: NO SIGNIFICANT OR ACUTE PROCESS IN THE ABDOMEN OR PELVIS. Chest X-Ray 09/09/20 00:00 IMPRESSION: NO ACUTE RADIOGRAPHIC FINDING IN THE CHEST. Lumbar Spine MRI 09/11/20 00:00 IMPRESSION: Limited study due to artifact from the indwelling hardware. Follow-up studies are recommended if clinical symptoms persist. Correlation with sed rate and other laboratory values is recommended. No focal epidural fluid collections are identified at this time. No abnormal enhancement is appreciated. There is moderate to severe central stenosis at L4-L5 with bilateral foraminal stenosis. This is significantly progressed when compared to prior MRI. Assessment and Plan - Diagnosis (1) Chronic back pain greater than 3 months duration Is this a current diagnosis for this admission?: Yes Plan: Patient apparently has hardware in place. He is also on chronic opioid Therapy including methadone. (2) Type 2 diabetes mellitus Qualifiers: Diabetes mellitus manager intermediate insulin use: with fdc use Is this a current diagnosis for this admission?: Yes Plan: He was initially in DKA but this has resolved. Patient had associated nausea and vomiting which is thought to be related to possible translocation of gram- negative rods from the GI tract causing transient bacteremia (3) Chronically on opiate therapy Is this a current diagnosis for this admission?: No Plan: Continue home methadone dosing as needed (4) MSSA bacteremia Is this a current diagnosis for this admission?: Yes Plan: 09/11/2020-blood cultures came back positive for MSSA bacteremia. ID consult was requested. Consultation with Dr. Samy Torres is requested for a CAROLINA. Presently on levofloxacin and vancomycin. Antibiotics will be adjusted based on ID recommendations. Sensitive to levofloxacin and vancomycin. 09/12 please see discussion below. Patient will be started on Zosyn for 7 days as suggested by ID and this will be changed to cefazolin thereafter for a total duration of 4 weeks after negative blood cultures - Plan Summary Summary: Patient had a CAROLINA done today and apparently it did not show any overt signs of of vegetations. I discussed with Dr. Jorge. He was not able to identify any vegetations. Patient has hardware in his back from back surgery and he does have chronic back pain for which he is on methadone. MRI of the lumbar spine showed severe stenosis but no epidural fluid collection. Blood cultures is positive for MSSA and apparently has a penicillin allergy hence patient is on vancomycin and Levaquin for gram-negative rods. Infectious disease recommendations appreciated. Is felt that the GNR is likely translocation from GI tract in the setting of nausea and vomiting and initial MRSA most likely skin contamination. The MSSA is felt to be possibly hospital-acquired recommendation for CAROLINA which has been done today noted. We will repeat blood cultures to document clearance of bacteremia. ID further recommends either Zosyn cover both gram-negative rods and MSSA for 7 days and then transition to cefazolin or cefazolin 2 g every 8 as as the GNR was slightly transient bacteremia. His situation for 4 weeks treatment considering that he has orthopedic hardware is suggested - Time Time Spent with patient: 25-34 minutes Medications reviewed and adjusted accordingly: Yes Anticipated Discharge Disposition: Home with Home Health Anticipated Discharge Timeframe: within 72 hours
[2020-09-12] MEDS: PIPERACILLIN SODIUM/TAZOBACTAM 4.5 GM in NORMAL SALINE 100 ML IV SCH (18:40)
[2020-09-12] MEDS: PAROXETINE HCL 20 MG TABLET PO SCH (21:41)
[2020-09-12] MEDS ORDERED: PROMETHAZINE HCL INJ 25 MG/1 ML VIAL IV PRN (22:17)
[2020-09-12] MEDS: METHADONE HCL 10 MG TABLET PO PRN (23:04)
[2020-09-13] MEDS: HEPARIN SOD (PORCINE) 5,000 UNIT/ML 1 ML VIAL SUBCUT SCH ×3 (05:20→22:21)
[2020-09-13] MEDS: PANTOPRAZOLE SODIUM 40 MG TABLET.DR PO SCH ×2 (05:20→17:59)
[2020-09-13] MEDS: PIPERACILLIN SODIUM/TAZOBACTAM 4.5 GM in NORMAL SALINE 100 ML IV SCH ×4 (05:20→13:12)
[2020-09-13] MEDS: METHADONE HCL 10 MG TABLET PO PRN ×3 (05:24→22:26)
[2020-09-13 07:35] LABS: ABSOLUTE EOSINOPHILS # (AUTO) 0.1 10^3/uL (0.0-0.6); ABSOLUTE LYMPHOCYTES (AUTO) 1.2 10^3/uL (0.5-4.7); ABSOLUTE MONOCYTES (AUTO) 0.5 10^3/uL (0.1-1.4); ABSOLUTE NEUT (AUTO) 2.9 10^3/uL (1.7-8.2); BASOPHILS % (AUTO) 0.4 % (0-2); EOSINOPHILS % (AUTO) 1.3 % (0-6); HEMATOCRIT 25.4 % (37.9-51.0); HEMOGLOBIN 9.3 g/dL (13.5-17.0); LYMPHOCYTES % (AUTO) 25.8 % (13-45); MEAN CORPUSCULAR HEMOGLOBIN 33.7 pg (27.0-33.4); MEAN CORPUSCULAR HGB CONC 36.7 g/dL (32.0-36.0); MEAN CORPUSCULAR VOLUME 92 fl (80-97); MONOCYTES % (AUTO) 10.7 % (3-13); PLATELET COUNT 205 10^3/uL (150-450); RED BLOOD COUNT 2.77 10^6/uL (4.35-5.55); RED CELL DISTRIBUTION WIDTH 13.8 % (11.5-14.0); SEGMENTED NEUTROPHILS % (AUTO) 61.8 % (42-78); TOTAL CELLS COUNTED % (AUTO) 100 %; WHITE BLOOD COUNT 4.6 10^3/uL (4.0-10.5)
[2020-09-13 07:54] LABS: ANION GAP 8 (5-19); BLOOD UREA NITROGEN 9 mg/dL (7-20); CALCIUM 8.2 mg/dL (8.4-10.2); CARBON DIOXIDE 28 mmol/L (22-30); CHLORIDE 99 mmol/L (98-107); GLUCOSE 144 mg/dL (75-110); POTASSIUM 3.3 mmol/L (3.6-5.0)
[2020-09-13] MEDS: INSULIN REG, HUMAN 100 UNIT/ML 3 ML VIAL (PYX) SUBCUT SCH ×4 (08:16→22:07)
--- NOTE | 2020-09-13 08:19 | XCELERA REPORT ---
Study ID: [id number] [address] [id number] Transesophageal Echocardiogram Report Name: KAI OSUNA Age: 49 yrs Gender: Male : 1970 Patient Status: Inpatient Patient Location: [facility]^A Study Date: 09/12/2020 11:26 AM History: Bacteremia Height: 74 in Weight: 232 lb BSA: 2.3 m2 Reason For Study: r/o endocarditis Ordering Physician: CRESENCIO MARTINEZ Performed By: Geno Salgado Interpretation Summary There is no evidence of a mass or vegetation. This does not rule out endocarditis. Left ventricular systolic function is normal. Ejection Fraction = >55%. The right ventricle is normal in size and function. There is trace mitral regurgitation. No hemodynamically significant valvular aortic stenosis. There is trace tricuspid regurgitation. There is no pericardial effusion. There is no evidence of a mass or vegetation. This does not rule out endocarditis. Procedure A complete two-dimensional transesophageal echocardiogram was performed (2D, spectral and color flow Doppler). Informed consent for Transesophageal Echocardiogram, and use of a contrast agent as needed, was obtained prior to the procedure. The patient was brought to the OR in a fasting state. IV conscious sedation was administered using per Anesthesia team. The patient's vital signs, including blood pressure, heart rate, pulse oximetry and cardiac rhythm were monitored thoughout the procedure. The transesophageal probe was passed without difficulty. The usual views were obtained; basal, mid- esophageal, transgastric and aortic views. The patient tolerated the procedure well without evidence of orophangeal or esophageal trauma. Subsequent to all the images being obtained the probe was removed with out trauma. Left Ventricle The left ventricle is normal in size. There is no thrombus. There is normal left ventricular wall thickness. Left ventricular systolic function is normal. Ejection Fraction = >55%. Right Ventricle The right ventricle is normal in size and function. Atria The interatrial septum is intact with no evidence for an atrial septal defect. Mitral Valve The mitral valve leaflets appear thickened, but open well. There is no vegetation seen on the mitral valve. There is no mitral valve stenosis. There is trace mitral regurgitation. Tricuspid Valve The tricuspid valve is normal in structure and function. There is no tricuspid valve vegetation. There is no tricuspid stenosis. There is trace tricuspid regurgitation. Aortic Valve The aortic valve is normal in structure and function. The aortic valve is trileaflet. There is no aortic valvular vegetation. No hemodynamically significant valvular aortic stenosis. No aortic regurgitation is present. Pulmonic Valve The pulmonic valve is normal in structure and function. There is no vegetation on the pulmonic valve. There is no pulmonic valvular stenosis. Trace pulmonic valvular regurgitation. Arteries The aortic root is normal size. Pericardium There is no pericardial effusion. : CRESENCIO MARTINEZ Anil
[2020-09-13] MEDS: PROPRANOLOL HCL 20 MG TABLET PO SCH ×3 (09:38→17:04)
[2020-09-13] MEDS: BENZTROPINE MESYLATE 1 MG TABLET PO SCH ×2 (09:42→22:20)
[2020-09-13] MEDS: LORATADINE 10 MG TABLET PO SCH (09:42)
[2020-09-13] MEDS: LAMOTRIGINE 100 MG TABLET PO SCH ×2 (09:42→22:23)
[2020-09-13] MEDS: FLUTICASONE/VILANTEROL 200-25 MCG/DOSE IH SCH (09:43)
[2020-09-13] MEDS: OXCARBAZEPINE 150 MG TABLET PO SCH ×2 (09:43→17:59)
[2020-09-13] MEDS: NYSTATIN CREAM 15 GM TP SCH (09:46)
[2020-09-13] MEDS: INSULIN GLARGINE,HUM.REC.ANLOG 1,000 UNIT/10 ML VIAL SUBCUT SCH ×2 (11:29→22:22)
[2020-09-13] MEDS ORDERED: POTASSIUM CHLORIDE 10 MEQ TABLET.ER PO ONE (12:30)
[2020-09-13] MEDS: NORMAL SALINE 1000 ML 1,000 ML IV PRN ×2 (13:12→14:11)
--- NOTE | 2020-09-13 14:16 | PDOC PROGRESS REPORT ---
Subjective Progress Note for:: 09/13/20 Subjective:: Patient is sleeping but easily arousable. is at bedside as usual. She has many questions which I attempted to answer. There was concern about the source of his infection. She did mention that he has a swelling and pain in the right upper extremity and this appears to be where an IV was inserted when he was first admitted Reason For Visit: DKA (DIABETIC KETOACIDOSES) Physical Exam Vital Signs: Temp Pulse Resp BP Pulse Ox 97.9 F 64 14 102/68 96 09/13/20 10:00 09/13/20 08:05 09/13/20 08:05 09/13/20 08:05 09/13/20 08:05 Intake & Output 09/12/20 09/13/20 09/14/20 06:59 06:59 06:59 Intake Total 2790 4138 Balance 2790 4138 Weight 105.4 kg 105.4 kg General appearance: PRESENT: no acute distress, well-developed, well-nourished Head exam: PRESENT: atraumatic, normocephalic Eye exam: PRESENT: conjunctiva pink, EOMI, PERRLA. ABSENT: scleral icterus Ear exam: PRESENT: normal external ear exam Mouth exam: PRESENT: moist, tongue midline Neck exam: ABSENT: carotid bruit, JVD, lymphadenopathy, thyromegaly Respiratory exam: PRESENT: clear to auscultation ariadne. ABSENT: rales, rhonchi, wheezes Cardiovascular exam: PRESENT: RRR, +S1, +S2. ABSENT: diastolic murmur, rubs, systolic murmur Pulses: PRESENT: normal dorsalis pedis pul Vascular exam: PRESENT: normal capillary refill GI/Abdominal exam: PRESENT: normal bowel sounds, soft. ABSENT: distended, guarding, mass, organolmegaly, rebound, tenderness Rectal exam: PRESENT: deferred Extremities exam: PRESENT: full ROM, joint swelling - Right elbow, tenderness - Swelling and tenderness in the right upper extremity. ABSENT: calf tenderness, clubbing, pedal edema Neurological exam: PRESENT: alert, awake, oriented to person, oriented to place, oriented to time, oriented to situation, CN II-XII grossly intact. ABSENT: motor sensory deficit Psychiatric exam: PRESENT: appropriate affect, normal mood. ABSENT: homicidal ideation, suicidal ideation Skin exam: PRESENT: dry, erythema - Right upper extremity, intact, warm. ABSENT: cyanosis, rash Results Laboratory Results: 09/13/20 06:58 09/13/20 06:58 09/13/20 09/13/20 06:58 06:58 WBC 4.6 RBC 2.77 L Hgb 9.3 L Hct 25.4 L MCV 92 MCH 33.7 H MCHC 36.7 H RDW 13.8 Plt Count 205 Seg Neutrophils % 61.8 Sodium 134.7 L Potassium 3.3 L Chloride 99 Carbon Dioxide 28 Anion Gap 8 BUN 9 Creatinine 1.36 H Est GFR ( Amer) > 60 Glucose 144 H Calcium 8.2 L 09/05/20 16:07 Blood Blood Culture (PCR) - Final Staphylococcus Species 09/05/20 16:07 Blood Blood Culture - Final Staphylococcus Epidermidis Gram Negative Rods 09/05/20 16:07 Blood Organism Identification - Final 09/05/20 16:07 Blood Organism Identification - Final 09/05/20 09/05/20 09/05/20 10:29 15:30 15:30 Creatine Kinase 51 L Troponin I 0.015 0.012 09/05/20 09/05/20 09/06/20 23:01 23:01 03:26 Creatine Kinase 53 L 50 L Troponin I 0.014 09/06/20 03:26 Creatine Kinase Troponin I 0.013 Impressions: Abdomen/Pelvis CT 09/05/20 11:47 IMPRESSION: NO SIGNIFICANT OR ACUTE PROCESS IN THE ABDOMEN OR PELVIS. Chest X-Ray 09/09/20 00:00 IMPRESSION: NO ACUTE RADIOGRAPHIC FINDING IN THE CHEST. Lumbar Spine MRI 09/11/20 00:00 IMPRESSION: Limited study due to artifact from the indwelling hardware. Follow-up studies are recommended if clinical symptoms persist. Correlation with sed rate and other laboratory values is recommended. No focal epidural fluid collections are identified at this time. No abnormal enhancement is appreciated. There is moderate to severe central stenosis at L4-L5 with bilateral foraminal stenosis. This is significantly progressed when compared to prior MRI. Assessment and Plan - Diagnosis (1) Chronic back pain greater than 3 months duration Is this a current diagnosis for this admission?: Yes Plan: Patient apparently has hardware in place. He is also on chronic opioid Therapy including methadone. (2) Type 2 diabetes mellitus Qualifiers: Diabetes mellitus buttermaker helper insulin use: with buttermaker helper use Is this a current diagnosis for this admission?: Yes (3) Chronically on opiate therapy Is this a current diagnosis for this admission?: No Plan: Continue home methadone dosing as needed (4) MSSA bacteremia Is this a current diagnosis for this admission?: Yes Plan: 09/11/2020-blood cultures came back positive for MSSA bacteremia. ID consult was requested. Consultation with Dr. Samy Torres is requested for a CAROLINA. Presently on levofloxacin and vancomycin. Antibiotics will be adjusted based on ID recommendations. Sensitive to levofloxacin and vancomycin. 09/12 please see discussion above. Patient will be started on Zosyn for 7 days as suggested by ID and this will be changed to cefazolin thereafter for a total duration of 4 weeks after negative blood cultures 09/13Gram-negative rods identified as psychrobacter phgenylpyruvicus. Repeat blood culture was done today and is currently pending - Plan Summary Summary: Patient had a CAROLINA done today and apparently it did not show any overt signs of of vegetations. I discussed with Dr. Jorge. He was not able to identify any vegetations. Patient has hardware in his back from back surgery and he does have chronic back pain for which he is on methadone. MRI of the lumbar spine showed severe stenosis but no epidural fluid collection. Blood cultures is positive for MSSA and apparently has a penicillin allergy hence patient is on vancomycin and Levaquin for gram-negative rods. Infectious disease recommendations appreciated. Is felt that the GNR is likely translocation from GI tract in the setting of nausea and vomiting and initial MRSA most likely skin contamination. The MSSA is felt to be possibly hospital-acquired recommendation for CAROLINA which has been done today noted. We will repeat blood cultures to document clearance of bacteremia. ID further recommends either Zosyn cover both gram-negative rods and MSSA for 7 days and then transition to cefazolin or cefazolin 2 g every 8 as as the GNR was slightly transient bacteremia. His situation for 4 weeks treatment considering that he has orthopedic hardware is suggested 09/13 obtain sonogram of the right upper extremity due to swelling and erythema at the elbow to rule out thrombophlebitis or DVT. Patient will ultimately need a PICC line once his bacteremia has cleared - Time Time Spent with patient: 25-34 minutes Medications reviewed and adjusted accordingly: Yes Anticipated Discharge Disposition: Home with Home Health Anticipated Discharge Timeframe: TBD
[2020-09-13] MEDS: PIPERACILLIN SODIUM/TAZOBACTAM 3.375 GM in NORMAL SALINE 100 ML IV SCH (18:04)
--- NOTE | 2020-09-13 18:07 | RADIOLOGY REPORT (SQ) ---
EXAM DESCRIPTION: VENOUS UNILATERAL UPPER IMAGES COMPLETED DATE/TIME: 09/13/2020 4:43 pm REASON FOR STUDY: Right elbow swelling COMPARISON: None. TECHNIQUE: Dynamic and static mayer scale and color images acquired of the right arm venous system. S elected spectral images acquired with additional compression and augmentation maneuvers. The contrala teral subclavian vein and internal jugular vein were also imaged. Images stored on PACS. LIMITATIONS: None. FINDINGS: INTERNAL JUGULAR VEIN: Normal phasicity, compression, augmentation. No visualized echogeni c material on mayer scale. No defects on color images. Comparison opposite side normal. SUBCLAVIAN VEIN: Normal compression, augmentation. No visualized echogenic material on mayer scale. No defects on color images. AXILLARY VEIN: Normal compression, augmentation. No visualized echogenic material on mayer scale. No d efects on color images. BRACHIAL VEIN: Normal compression, augmentation. No visualized echogenic material on mayer scale. No d efects on color images. BASILIC VEIN: Normal compression, augmentation. No visualized echogenic material on mayer scale. No de fects on color images. CEPHALIC VEIN: There is focal acute occlusive thrombus at the right cephalic vein at the antecubital fossa. Distal cephalic vein is patent. OTHER: No other significant finding. CONTRALATERAL SUBCLAVIAN VEIN AND INTERNAL JUGULAR VEIN: Normal phasicity, compression and augmentation. No visualized echogenic material on mayer scale. No de fects on color images. IMPRESSION: Focal acute superficial venous thrombus in the cephalic vein at the right antecubital fo ssa. No DVT. TECHNICAL DOCUMENTATION: JOB ID: [id number] 2010 [employer]- All Rights Reserved Reading location - IP/workstation name: [email or web address]
[2020-09-13] MEDS: PAROXETINE HCL 20 MG TABLET PO SCH (22:26)
[2020-09-14] MEDS: PIPERACILLIN SODIUM/TAZOBACTAM 3.375 GM in NORMAL SALINE 100 ML IV SCH ×5 (00:10→23:54)
[2020-09-14 02:31] LABS: ABSOLUTE EOSINOPHILS # (AUTO) 0.1 10^3/uL (0.0-0.6); ABSOLUTE LYMPHOCYTES (AUTO) 1.8 10^3/uL (0.5-4.7); ABSOLUTE MONOCYTES (AUTO) 0.8 10^3/uL (0.1-1.4); ABSOLUTE NEUT (AUTO) 3.3 10^3/uL (1.7-8.2); BASOPHILS % (AUTO) 0.5 % (0-2); EOSINOPHILS % (AUTO) 1.6 % (0-6); HEMATOCRIT 26.7 % (37.9-51.0); HEMOGLOBIN 9.7 g/dL (13.5-17.0); LYMPHOCYTES % (AUTO) 29.4 % (13-45); MEAN CORPUSCULAR HEMOGLOBIN 33.5 pg (27.0-33.4); MEAN CORPUSCULAR HGB CONC 36.2 g/dL (32.0-36.0); MEAN CORPUSCULAR VOLUME 92 fl (80-97); MONOCYTES % (AUTO) 13.5 % (3-13); PLATELET COUNT 259 10^3/uL (150-450); RED BLOOD COUNT 2.89 10^6/uL (4.35-5.55); RED CELL DISTRIBUTION WIDTH 14.2 % (11.5-14.0); TOTAL CELLS COUNTED % (AUTO) 100 %
[2020-09-14 02:46] LABS: ALBUMIN 2.9 g/dL (3.5-5.0); ALKALINE PHOSPHATASE 76 U/L (38-126); ANION GAP 9 (5-19); ASPARTATE AMINO TRANSFERASE 35 U/L (17-59); BILIRUBIN,DIRECT 0.3 mg/dL (0.0-0.4); BILIRUBIN,TOTAL 1.2 mg/dL (0.2-1.3); BLOOD UREA NITROGEN 7 mg/dL (7-20); CALCIUM 8.5 mg/dL (8.4-10.2); CARBON DIOXIDE 26 mmol/L (22-30); CHLORIDE 100 mmol/L (98-107); GLUCOSE 90 mg/dL (75-110); POTASSIUM 3.4 mmol/L (3.6-5.0); TOTAL PROTEIN 5.4 g/dL (6.3-8.2)
--- NOTE | 2020-09-14 04:18 | RADIOLOGY REPORT (SQ) ---
EXAM DESCRIPTION: CT HEAD WITHOUT IV CONTRAST COMPLETED DATE/TME: 09/14/2020 00:00 CLINICAL HISTORY: Fall- Hit head COMPARISON: None available TECHNIQUE: Axial CT of the head obtained from the skull apex to the skull base without contrast. FINDINGS: No acute intracranial hemorrhage identified. No mass, mass effect, shift of the midline, abnormal extra-axial fluid collection or CT evidence of acute ischemic change identified. The ventricular system is unremarkable. No acute abnormalities of the supratentorial white matter, basal ganglia, cerebellum, or brainstem. Mucosal thickening of the right maxillary sinus. Mastoid air cells are well aerated. No skull fracture identified. Visualized orbits and globes are unremarkable. IMPRESSION: 1. No acute intracranial abnormality identified. This exam was performed according to our departmental dose-optimization program, which includes automated exposure control, adjustment of the mA and/or kV according to patient size and/or use of iterative reconstruction technique.
[2020-09-14] MEDS: HEPARIN SOD (PORCINE) 5,000 UNIT/ML 1 ML VIAL SUBCUT SCH ×3 (06:36→22:09)
[2020-09-14] MEDS: PANTOPRAZOLE SODIUM 40 MG TABLET.DR PO SCH ×2 (06:36→18:06)
[2020-09-14] MEDS: INSULIN REG, HUMAN 100 UNIT/ML 3 ML VIAL (PYX) SUBCUT SCH ×4 (07:39→22:24)
[2020-09-14] MEDS: METHADONE HCL 10 MG TABLET PO PRN ×2 (08:18→14:43)
[2020-09-14] MEDS: BENZTROPINE MESYLATE 1 MG TABLET PO SCH ×2 (10:30→22:08)
[2020-09-14] MEDS: LORATADINE 10 MG TABLET PO SCH (10:30)
[2020-09-14] MEDS: OXCARBAZEPINE 150 MG TABLET PO SCH ×2 (10:31→18:06)
[2020-09-14] MEDS: LAMOTRIGINE 100 MG TABLET PO SCH ×2 (10:31→22:08)
[2020-09-14] MEDS: FLUTICASONE/VILANTEROL 200-25 MCG/DOSE IH SCH (10:32)
--- NOTE | 2020-09-14 10:34 | PDOC PROGRESS REPORT ---
Subjective Progress Note for:: 09/14/20 Subjective:: Overnight events noted. Patient was laying in bed calm and not agitated at the time of my evaluation this morning. His was tearful about the events and was upset that security was called. Of that she talks to patient advocate as well as to the nursing animal care supervisor. She declines any psych evaluation at this time and as patient appears to be pretty calm with no hallucinations, aggressive behavior or any other pertinent symptoms I will defer psych consult for now. He complains of the right elbow pain. Sonogram done yesterday reveals a superficial venous thrombosis. Laboratory data show his creatinine to still be worse at 1.59 with initial creatinine is 0.43 on admission. BUN is 7. Repeat blood culture drawn on September 13 is negative in 24 hours. Will wait and see what if anything it ultimately Reason For Visit: DKA (DIABETIC KETOACIDOSES) Physical Exam Vital Signs: Temp Pulse Resp BP Pulse Ox 98.0 F 77 18 98/60 L 95 09/14/20 07:20 09/14/20 07:20 09/14/20 07:20 09/14/20 07:20 09/14/20 07:20 Intake & Output 09/13/20 09/14/20 09/15/20 06:59 06:59 06:59 Intake Total 4138 535 Output Total 200 Balance 4138 335 Weight 105.4 kg 105.5 kg General appearance: PRESENT: no acute distress, well-developed, well-nourished Head exam: PRESENT: atraumatic, normocephalic Eye exam: PRESENT: conjunctiva pink, EOMI, PERRLA. ABSENT: scleral icterus Ear exam: PRESENT: normal external ear exam Mouth exam: PRESENT: moist, tongue midline Neck exam: ABSENT: carotid bruit, JVD, lymphadenopathy, thyromegaly Respiratory exam: PRESENT: clear to auscultation ariadne. ABSENT: rales, rhonchi, wheezes Cardiovascular exam: PRESENT: RRR, +S1, +S2. ABSENT: diastolic murmur, rubs, systolic murmur Pulses: PRESENT: normal dorsalis pedis pul Vascular exam: PRESENT: normal capillary refill GI/Abdominal exam: PRESENT: normal bowel sounds, soft. ABSENT: distended, guarding, mass, organolmegaly, rebound, tenderness Rectal exam: PRESENT: deferred Extremities exam: PRESENT: full ROM, +1 edema. ABSENT: calf tenderness, clubbing, pedal edema Neurological exam: PRESENT: awake, oriented to person, oriented to place, oriented to time, oriented to situation, other - sleeping but easily arousable. ABSENT: motor sensory deficit Psychiatric exam: PRESENT: appropriate affect. ABSENT: homicidal ideation, suicidal ideation Skin exam: PRESENT: dry, intact, warm, other. ABSENT: cyanosis, rash Results Laboratory Results: 09/14/20 02:17 09/14/20 02:17 09/14/20 09/14/20 09/14/20 02:17 02:17 02:17 WBC 6.0 RBC 2.89 L Hgb 9.7 L Hct 26.7 L MCV 92 MCH 33.5 H MCHC 36.2 H RDW 14.2 H Plt Count 259 Seg Neutrophils % 55.0 Sodium Cancelled 134.9 L Potassium Cancelled 3.4 L Chloride Cancelled 100 Carbon Dioxide Cancelled 26 Anion Gap Cancelled 9 BUN Cancelled 7 Creatinine Cancelled 1.59 H Est GFR ( Amer) Cancelled 57 L Est GFR (Non-Af Amer) Cancelled Glucose Cancelled 90 Calcium Cancelled 8.5 Magnesium 1.9 Total Bilirubin 1.2 AST 35 Alkaline Phosphatase 76 Total Protein 5.4 L Albumin 2.9 L 09/05/20 16:07 Blood Blood Culture (PCR) - Final Staphylococcus Species 09/05/20 16:07 Blood Blood Culture - Final Staphylococcus Epidermidis Gram Negative Rods 09/05/20 09/05/20 09/05/20 10:29 15:30 15:30 Creatine Kinase 51 L Troponin I 0.015 0.012 09/05/20 09/05/20 09/06/20 23:01 23:01 03:26 Creatine Kinase 53 L 50 L Troponin I 0.014 09/06/20 03:26 Creatine Kinase Troponin I 0.013 Impressions: Abdomen/Pelvis CT 09/05/20 11:47 IMPRESSION: NO SIGNIFICANT OR ACUTE PROCESS IN THE ABDOMEN OR PELVIS. Chest X-Ray 09/09/20 00:00 IMPRESSION: NO ACUTE RADIOGRAPHIC FINDING IN THE CHEST. Lumbar Spine MRI 09/11/20 00:00 IMPRESSION: Limited study due to artifact from the indwelling hardware. F ollow-up studies are recommended if clinical symptoms persist. Correlation with sed rate and other laboratory values is recommended. No focal epidural fluid collections are identified at this time. No abnormal enhancement is appreciated. There is moderate to severe central stenosis at L4-L5 with bilateral foraminal stenosis. This is significantly progressed when compared to prior MRI. Venous Doppler Study 09/13/20 00:00 IMPRESSION: Focal acute superficial venous thrombus in the cephalic vein at the right antecubital fossa. No DVT. Head CT 09/14/20 00:00 IMPRESSION: 1. No acute intracranial abnormality identified. This exam was performed according to our departmental dose-optimization program, which includes automated exposure control, adjustment of the mA and/or kV according to patient size and/or use of iterative reconstruction technique. Assessment and Plan - Diagnosis (1) Chronic back pain greater than 3 months duration Is this a current diagnosis for this admission?: Yes Plan: Patient apparently has hardware in place. He is also on chronic opioid Therapy including methadone. (2) Type 2 diabetes mellitus Qualifiers: Diabetes mellitus disease case manager insulin use: with jail use Is this a current diagnosis for this admission?: Yes Plan: He was initially in DKA but this has resolved. Patient had associated nausea and vomiting which is thought to be related to possible translocation of gram-negative rods from the GI tract causing transient bacteremia (3) Chronically on opiate therapy Is this a current diagnosis for this admission?: No (4) MSSA bacteremia Is this a current diagnosis for this admission?: Yes Plan: 09/11/2020-blood cultures came back positive for MSSA bacteremia. ID consult was requested. Consultation with Dr. Samy Torres is requested for a [place]. Presently on levofloxacin and vancomycin. Antibiotics will be adjusted based on ID recommendations. Sensitive to levofloxacin and vancomycin. 09/12 please see discussion above. Patient will be started on Zosyn for 7 days as suggested by ID and this will be changed to cefazolin thereafter for a total duration of 4 weeks after negative blood cultures 09/13Gram-negative rods identified as psychrobacter phgenylpyruvicus. Repeat blood culture was done today and is currently pending 09/14 patient has been switched to Zosyn. Cultures pending today (5) Superficial venous thrombosis of arm Qualifiers: Laterality: right Qualified Code(s): I82.611 - Acute embolism and thrombosis of superficial veins of right upper extremity Is this a current diagnosis for this admission?: Yes Plan: Likely related to vascular access. This is not DVT so no need for AC. Warm compress, ASA if needed (6) Acute kidney injury Is this a current diagnosis for this admission?: Yes Plan: Patient was on Levaquin which has since been discontinued We will continue with Zosyn and watch this very carefully - Plan Summary Summary: Patient had a [place] done today and apparently it did not show any overt signs of of vegetations. I discussed with Dr. Jorge. He was not able to identify any vegetations. Patient has hardware in his back from back surgery and he does have chronic back pain for which he is on methadone. MRI of the lumbar spine showed severe stenosis but no epidural fluid collection. Blood cultures is positive for MSSA and apparently has a penicillin allergy hence patient is on vancomycin and Levaquin for gram-negative rods. Infectious disease recommendations appreciated. Is felt that the GNR is likely translocation from GI tract in the setting of nausea and vomiting and initial MRSA most likely skin contamination. The MSSA is felt to be possibly hospital-acquired recommendation for [place] which has been done today noted. We will repeat blood cultures to docum ent clearance of bacteremia. ID further recommends either Zosyn cover both gram-negative rods and MSSA for 7 days and then transition to cefazolin or cefazolin 2 g every 8 as as the GNR was slightly transient bacteremia. His situation for 4 weeks treatment considering that he has orthopedic hardware is suggested 09/13 obtain sonogram of the right upper extremity due to swelling and erythema at the elbow to rule out thrombophlebitis or DVT. Patient will ultimately need a PICC line once his bacteremia has cleared 09/14 we will plan on possible DC home by the end of the week or likely next we ek. If blood cultures remain negative he will need a PICC line Order physical therapy - Time Time Spent with patient: 25-34 minutes Medications reviewed and adjusted accordingly: Yes Anticipated Discharge Disposition: Home with Home Health Anticipated Discharge Timeframe: within 72 hours
[2020-09-14] MEDS: INSULIN GLARGINE,HUM.REC.ANLOG 1,000 UNIT/10 ML VIAL SUBCUT SCH ×2 (10:38→22:09)
[2020-09-14] MEDS: PROPRANOLOL HCL 20 MG TABLET PO SCH (10:40)
[2020-09-14] MEDS ORDERED: POTASSIUM CHLORIDE 10 MEQ TABLET.ER PO ONE (11:56)
[2020-09-14] MEDS ORDERED: PROPRANOLOL HCL 20 MG TABLET PO SCH (14:00)
[2020-09-14] MEDS: PROPRANOLOL HCL 10 MG TABLET PO SCH ×2 (14:21→22:25)
[2020-09-14] MEDS: POTASSI CL 20 MEQ/1/2NS 1L 20 MEQ/1,000 ML RTUINJ IV PRN ×2 (14:22→22:10)
[2020-09-14] MEDS: PAROXETINE HCL 20 MG TABLET PO SCH (22:08)
[2020-09-15] MEDS: CHLORPROMAZINE HCL INJ 25 MG/1 ML AMPULE IV PRN ×2 (02:58→12:33)
[2020-09-15] MEDS ORDERED: CHLORPROMAZINE HCL INJ 25 MG/1 ML AMPULE ONE (03:50)
[2020-09-15] MEDS: PIPERACILLIN SODIUM/TAZOBACTAM 3.375 GM in NORMAL SALINE 100 ML IV SCH ×4 (05:44→23:53)
[2020-09-15] MEDS: HEPARIN SOD (PORCINE) 5,000 UNIT/ML 1 ML VIAL SUBCUT SCH ×3 (06:32→21:15)
[2020-09-15] MEDS: PANTOPRAZOLE SODIUM 40 MG TABLET.DR PO SCH ×2 (06:40→18:12)
[2020-09-15] MEDS: PROPRANOLOL HCL 10 MG TABLET PO SCH ×2 (06:40→21:16)
[2020-09-15 08:38] LABS: ANION GAP 10 (5-19); BLOOD UREA NITROGEN 5 mg/dL (7-20); CALCIUM 8.4 mg/dL (8.4-10.2); CARBON DIOXIDE 27 mmol/L (22-30); CHLORIDE 102 mmol/L (98-107); GLUCOSE 75 mg/dL (75-110); POTASSIUM 3.5 mmol/L (3.6-5.0)
[2020-09-15] MEDS: INSULIN REG, HUMAN 100 UNIT/ML 3 ML VIAL (PYX) SUBCUT SCH ×4 (10:21→22:04)
[2020-09-15] MEDS: LAMOTRIGINE 100 MG TABLET PO SCH ×2 (10:31→21:15)
[2020-09-15] MEDS: LORATADINE 10 MG TABLET PO SCH (10:32)
[2020-09-15] MEDS: BENZTROPINE MESYLATE 1 MG TABLET PO SCH ×2 (10:32→21:14)
[2020-09-15] MEDS: FLUTICASONE/VILANTEROL 200-25 MCG/DOSE IH SCH (10:32)
[2020-09-15] MEDS: OXCARBAZEPINE 150 MG TABLET PO SCH ×2 (10:32→18:11)
[2020-09-15] MEDS: INSULIN GLARGINE,HUM.REC.ANLOG 1,000 UNIT/10 ML VIAL SUBCUT SCH (10:58)
--- NOTE | 2020-09-15 13:09 | PDOC PROGRESS REPORT ---
Subjective Progress Note for:: 09/15/20 Subjective:: Overnight events noted. Patient was laying in bed calm and not agitated at the time of my evaluation this morning. His was tearful about the events and was upset that security was called. Of that she talks to patient advocate as well as to the nursing dewatering filtering supervisor. She declines any psych evaluation at this time and as patient appears to be pretty calm with no hallucinations, aggressive behavior or any other pertinent symptoms I will defer psych consult for now. He complains of the right elbow pain. Sonogram done yesterday reveals a superficial venous thrombosis. Laboratory data show his creatinine to still be worse at 1.59 with initial creatinine is 0.43 on admission. BUN is 7. Repeat blood culture drawn on September 13 is negative in 24 hours. Will wait and see what if anything it ultimately 09/15Patient nausea episode of agitation and confusion during the night. He received some Thorazine which does calm him. Patient is fine during the daytime admission he had no issues during the daytime yesterday and so far today there is been no issues also her creatinine is up slightly to 1.67 but BUN remains at 5. Patient remains on Zosyn which was started on 1028 and repeat blood cultures at 48 hours remain negative. He remains on Cogentin as well as Paxil and methadone and Trileptal which were all outpatient medications. Patient was also on Risperdal and Lamictal although this has been on hold since admission presumably due to his initial presentation. His blood sugars have been low so I have discontinued the Lantus at this time as he is renal area January Reason For Visit: DKA (DIABETIC KETOACIDOSES) Physical Exam Vital Signs: Temp Pulse Resp BP Pulse Ox 98.7 F 75 18 95/54 L 96 09/15/20 11:31 09/15/20 11:31 09/15/20 11:31 09/15/20 11:31 09/15/20 11:31 Intake & Output 09/14/20 09/15/20 09/16/20 06:59 06:59 06:59 Intake Total 535 1480 1240 Output Total 200 1200 Balance 335 1480 40 Weight 105.5 kg 113.2 kg General appearance: PRESENT: no acute distress, well-developed, well-nourished, other - Sleeping but arousable Head exam: PRESENT: atraumatic, normocephalic Eye exam: PRESENT: conjunctiva pink, EOMI, PERRLA. ABSENT: scleral icterus Ear exam: PRESENT: normal external ear exam Mouth exam: PRESENT: moist, tongue midline Neck exam: ABSENT: carotid bruit, JVD, lymphadenopathy, thyromegaly Respiratory exam: PRESENT: clear to auscultation ariadne, unlabored. ABSENT: rales, rhonchi, wheezes Cardiovascular exam: PRESENT: RRR, +S1, +S2. ABSENT: diastolic murmur, rubs, systolic murmur Pulses: PRESENT: normal dorsalis pedis pul Vascular exam: PRESENT: normal capillary refill GI/Abdominal exam: PRESENT: normal bowel sounds, soft. ABSENT: distended, guarding, mass, organolmegaly, rebound, tenderness Rectal exam: PRESENT: deferred Extremities exam: PRESENT: full ROM, +1 edema, other - Right upper extremity pain and swelling at the elbow. ABSENT: calf tenderness, clubbing, pedal edema Neurological exam: PRESENT: alert, other - Sedated but arousable. ABSENT: motor sensory deficit Psychiatric exam: PRESENT: appropriate affect, normal mood. ABSENT: homicidal ideation, suicidal ideation Skin exam: PRESENT: dry, intact, warm. ABSENT: cyanosis, rash Results Laboratory Results: 09/14/20 02:17 09/15/20 07:57 09/15/20 07:57 Sodium 138.6 Potassium 3.5 L Chloride 102 Carbon Dioxide 27 Anion Gap 10 BUN 5 L Creatinine 1.67 H Est GFR ( Amer) 53 L Glucose 75 Calcium 8.4 09/05/20 09/05/20 09/05/20 10:29 15:30 15:30 Creatine Kinase 51 L Troponin I 0.015 0.012 09/05/20 09/05/20 09/06/20 23:01 23:01 03:26 Creatine Kinase 53 L 50 L Troponin I 0.014 09/06/20 03:26 Creatine Kinase Troponin I 0.013 Impressions: Abdomen/Pelvis CT 09/05/20 11:47 IMPRESSION: NO SIGNIFICANT OR ACUTE PROCESS IN THE ABDOMEN OR PELVIS. Chest X-Ray 09/09/20 00:00 IMPRESSION: NO ACUTE RADIOGRAPHIC FINDING IN THE CHEST. Lumbar Spine MRI 09/11/20 00:00 IMPRESSION: Limited study due to artifact from the indwelling hardware. Follow-up studies are recommended if clinical symptoms persist. Correlation with sed rate and other laboratory values is recommended. No focal epidural fluid collections are identified at this time. No abnormal enhancement is ronak reciated. There is moderate to severe central stenosis at L4-L5 with bilateral foraminal stenosis. This is significantly progressed when compared to prior MRI. Venous Doppler Study 09/13/20 00:00 IMPRESSION: Focal acute superficial venous thrombus in the cephalic vein at the right antecubital fossa. No DVT. Head CT 09/14/20 00:00 IMPRESSION: 1. No acute intracranial abnormality identified. This exam was performed according to our departmental dose-optimization program, which includes automated exposure control, adjustment of the mA and/or kV according to patient size and/or use of iterative reconstruction technique. Assessment and Plan - Diagnosis (1) Chronic back pain greater than 3 months duration Is this a current diagnosis for this admission?: Yes Plan: Patient apparently has hardware in place. He is also on chronic opioid Therapy including methadone. We will continue same (2) Type 2 diabetes mellitus Qualifiers: Diabetes mellitus ferry terminal agent insulin use: with snf use Is this a current diagnosis for this admission?: Yes Plan: We will hold insulin due to hypoglycemia (3) Chronically on opiate therapy Is this a current diagnosis for this admission?: No (4) MSSA bacteremia Is this a current diagnosis for this admission?: Yes Plan: 09/11/2020-blood cultures came back positive for MSSA bacteremia. ID consult was requested. Consultation with Dr. Samy Torres is requested for a [place]. Presently on levofloxacin and vancomycin. Antibiotics will be adjusted based on ID recommendations. Sensitive to levofloxacin and vancomycin. 09/12 please see discussion above. Patient will be started on Zosyn for 7 days as suggested by ID and this will be changed to cefazolin thereafter for a total duration of 4 weeks after negative blood cultures 09/13Gram-negative rods identified as psychrobacter phgenylpyruvicus. Repeat blood culture was done today and is currently pending 09/14 patient has been switched to Zosyn since 09/13. Cultures pending today 09/15 blood cultures negative x2 days. Patient she will likely have a PICC line inserted hopefully by Friday and if he remains stable he can be discharged home to complete a 4-week course of antibiotics from negative blood culture (5) Superficial venous thrombosis of arm Qualifiers: Laterality: right Qualified Code(s): I82.611 - Acute embolism and thro mbosis of superficial veins of right upper extremity Is this a current diagnosis for this admission?: Yes Plan: Likely related to vascular access. This is not DVT so no need for AC. Warm compress, ASA if needed Continue with local care (6) Acute kidney injury Is this a current diagnosis for this admission?: Yes Plan: Patient was on Levaquin which has since been discontinued We will continue with Zosyn and watch this very carefully 09/15 kidney function is relatively stable. We will continue judicious IV fluid hydration - Plan Summary Summary: Patient had a [place] done today and apparently it did not show any overt signs of of vegetations. I discussed with Dr. Jorge. He was not able to identify any vegetations. Patient has hardware in his back from back surgery and he does have chronic back pain for which he is on methadone. MRI of the lumbar spine showed severe stenosis but no epidural fluid collection. Blood cultures is positive for MSSA and apparently has a penicillin allergy hence patient is on vancomycin and Levaquin for gram-negative rods. Infectious disease recommendations appreciated. Is felt that the GNR is likely translocation from GI tract in the setting of nausea and vomiting and initial MRSA most likely skin contamination. The MSSA is felt to be possibly hospital-acquired recommendation for [place] which has been done today noted. We will repeat blood cultures to document clearance of bacteremia. ID further recommends either Zosyn cover both gram-negative rods and MSSA for 7 days and then transition to cefazolin or cefazolin 2 g every 8 as as the GNR was slightly transient bacteremia. His situation for 4 weeks treatment considering that he has orthopedic hardware is suggested 09/13 obtain sonogram of the right upper extremity due to swelling and erythema at the elbow to rule out thrombophlebitis or DVT. Patient will ultimately need a PICC line once his bacteremia has cleared 09/14 we will plan on possible DC home by the end of the week or likely next week. If blood cultures remain negative he will need a PICC line Order physical therapy 09/15 chest call Patient spouse at [phone] but was unable to reach her no was I able to leave a voicemail - Time Time Spent with patient: 25-34 minutes Medications reviewed and adjusted accordingly: Yes Anticipated Discharge Disposition: Home with Home Health Anticipated Discharge Timeframe: TBD
[2020-09-15] MEDS: METHADONE HCL 10 MG TABLET PO PRN (15:53)
--- NOTE | 2020-09-15 16:35 | Progress Note ---
Provider Note Provider Note: Discussed with patient's . Explained to her that patient probably has a metabolic encephalopathy. I see no clear etiology for his agitation and confusion at this time. There is no acute infectious reason that I can see and although he does have some mild changes in his kidney function this is not to the degree that would cause any significant symptoms. Patient does take Cogentin, Paxil, Risperdal, Lamictal. Risperdal was on hold but started him back today at a reduced dose which I did discuss with his . She does get a little upset and she has been somewhat frustrated by her 's condition. She states that she will move him out of here if you mention psych consult again. I reviewed patient's medication and really the only new thing is taking is Zosyn. I did explain to the that with a metabolic encephalopathy which may have been due to his initial presenting DKA, to light derangements, hospital psychosis, underlying psychological issues, acute infection including bacteremia as well as multiple medications patient called very well improve as he gets better and in the interim we will support him as indicated
[2020-09-15] MEDS ORDERED: DEXTROSE 5%-NORMAL SALINE 1,000 ML IV PRN (16:51)
[2020-09-15] MEDS: RISPERIDONE 1 MG TABLET PO SCH (21:14)
[2020-09-15] MEDS: PAROXETINE HCL 20 MG TABLET PO SCH (21:14)
[2020-09-15] MEDS ORDERED: RISPERIDONE 1 MG TABLET PO SCH (22:00)
[2020-09-16] MEDS: CHLORPROMAZINE HCL INJ 25 MG/1 ML AMPULE IV PRN ×2 (01:26→09:32)
[2020-09-16] MEDS: PANTOPRAZOLE SODIUM 40 MG TABLET.DR PO SCH ×2 (06:26→17:22)
[2020-09-16] MEDS: PIPERACILLIN SODIUM/TAZOBACTAM 3.375 GM in NORMAL SALINE 100 ML IV SCH (06:26)
[2020-09-16] MEDS: HEPARIN SOD (PORCINE) 5,000 UNIT/ML 1 ML VIAL SUBCUT SCH ×3 (06:26→21:24)
[2020-09-16 06:41] LABS: ANION GAP 6 (5-19); BLOOD UREA NITROGEN 4 mg/dL (7-20); CALCIUM 7.9 mg/dL (8.4-10.2); CARBON DIOXIDE 28 mmol/L (22-30); CHLORIDE 103 mmol/L (98-107); GLUCOSE 106 mg/dL (75-110); POTASSIUM 3.3 mmol/L (3.6-5.0)
[2020-09-16] MEDS ORDERED: POTASSIUM CHLORIDE 10 MEQ TABLET.ER PO ONE ×2 (08:52→12:00)
[2020-09-16] MEDS: INSULIN REG, HUMAN 100 UNIT/ML 3 ML VIAL (PYX) SUBCUT SCH ×4 (09:13→22:00)
[2020-09-16] MEDS: LORATADINE 10 MG TABLET PO SCH (09:17)
[2020-09-16] MEDS: OXCARBAZEPINE 150 MG TABLET PO SCH ×2 (09:17→17:20)
[2020-09-16] MEDS: LAMOTRIGINE 100 MG TABLET PO SCH ×2 (09:18→21:28)
[2020-09-16] MEDS: BENZTROPINE MESYLATE 1 MG TABLET PO SCH ×2 (09:18→21:24)
[2020-09-16] MEDS: PROPRANOLOL HCL 10 MG TABLET PO SCH ×2 (09:18→21:24)
[2020-09-16] MEDS: RISPERIDONE 1 MG TABLET PO SCH (09:18)
[2020-09-16] MEDS: METHADONE HCL 10 MG TABLET PO PRN ×2 (09:32→17:22)
[2020-09-16] MEDS: FLUTICASONE/VILANTEROL 200-25 MCG/DOSE IH SCH (09:34)
[2020-09-16] MEDS ORDERED: NORMAL SALINE 1000 ML 1,000 ML IV ONE ×2 (11:25→13:45)
[2020-09-16] MEDS ORDERED: CHLORPROMAZINE HCL INJ 25 MG/1 ML AMPULE IV PRN (11:31)
--- NOTE | 2020-09-16 11:37 | PDOC PROGRESS REPORT ---
Subjective Progress Note for:: 09/16/20 Subjective:: The patient has been medicated. He was moving in bed but he was trying to reposition himself due to back pain. Reason For Visit: DKA (DIABETIC KETOACIDOSES) Diabetes mellitus type 2 Bipolar disorder Physical Exam Vital Signs: Temp Pulse Resp BP Pulse Ox 97.8 F 64 18 120/80 91 L 09/16/20 10:00 09/15/20 23:54 09/15/20 23:54 09/15/20 23:54 09/15/20 23:54 Intake & Output 09/15/20 09/16/20 09/17/20 06:59 06:59 05:59 Intake Total 1480 1480 Output Total 2700 Balance 1480 -1220 Weight 113.2 kg 112.4 kg General appearance: ABSENT: cooperative - Medicated Head exam: PRESENT: atraumatic, normocephalic Eye exam: PRESENT: conjunctiva pale. ABSENT: scleral icterus Ear exam: PRESENT: normal external ear exam. ABSENT: bleeding, drainage Mouth exam: PRESENT: dry mucosa, tongue midline Neck exam: ABSENT: carotid bruit, JVD, lymphadenopathy Respiratory exam: PRESENT: symmetrical, unlabored, other. ABSENT: rales, rhonchi, tachypnea, wheezes Cardiovascular exam: PRESENT: RRR, +S1 - Snoring, +S2. ABSENT: bradycardia, diastolic murmur, irregular rhythm, systolic murmur, tachycardia GI/Abdominal exam: PRESENT: normal bowel sounds, soft. ABSENT: distended, guarding, tenderness Rectal exam: PRESENT: deferred Gentrourinary exam: PRESENT: indwelling catheter Extremities exam: PRESENT: +1 edema Musculoskeletal exam: PRESENT: normal inspection. ABSENT: deformity, dislocation Neurological exam: PRESENT: altered - Secondary medication, awake. ABSENT: alert Psychiatric exam: PRESENT: agitated - Intermittently, unusual affect - Secondary to medication, other - Can be impulsive. Does not seem to comprehend much of the verbal interaction. Focused psych exam: PRESENT: restlessness, other - Labile in that he will have a blank stare at the ceiling and then be quite restless. Skin exam: PRESENT: pallor Results Laboratory Results: 09/14/20 02:17 09/16/20 04:50 09/16/20 04:50 Sodium 136.6 L Potassium 3.3 L Chloride 103 Carbon Dioxide 28 Anion Gap 6 BUN 4 L Creatinine 1.66 H Est GFR ( Amer) 54 L Glucose 106 Calcium 7.9 L 09/05/20 09/05/20 09/05/20 10:29 15:30 15:30 Creatine Kinase 51 L Troponin I 0.015 0.012 09/05/20 09/05/20 09/06/20 23:01 23:01 03:26 Creatine Kinase 53 L 50 L Troponin I 0.014 09/06/20 03:26 Creatine Kinase Troponin I 0.013 Impressions: Abdomen/Pelvis CT 09/05/20 11:47 IMPRESSION: NO SIGNIFICANT OR ACUTE PROCESS IN THE ABDOMEN OR PELVIS. Chest X-Ray 09/09/20 00:00 IMPRESSION: NO ACUTE RADIOGRAPHIC FINDING IN THE CHEST. Lumbar Spine MRI 09/11/20 00:00 IMPRESSION: Limited study due to artifact from the indwelling hardware. Follow-up studies are recommended if clinical symptoms persist. Correlation with sed rate and other laboratory values is recommended. No focal epidural fluid collections are identified at this time. No abnormal enhancement is appreciated. There is moderate to severe central stenosis at L4-L5 with bilateral foraminal stenosis. This is significantly progressed when compared to prior MRI. Venous Doppler Study 09/13/20 00:00 IMPRESSION: Focal acute superficial venous thrombus in the cephalic vein at the right antecubital fossa. No DVT. Head CT 09/14/20 00:00 IMPRESSION: 1. No acute intracranial abnormality identified. This exam was performed according to our departmental dose-optimization program, which includes automated exposure control, adjustment of the mA and/or kV according to patient size and/or use of iterative reconstruction technique. Assessment and Plan - Diagnosis (1) DKA (diabetic ketoacidoses) Qualifiers: Diabetes mellitus type: type 2 Diabetes mellitus complication detail: without coma Qualified Code(s): E11.10 - Type 2 diabetes mellitus with ketoacidosis without coma Is this a current diagnosis for this admission?: Yes Plan: DKA resolved but will need improved glucose control. Increase Lantus to 50 units subcutaneously every 12 hours. Continue sliding scale insulin. Stop IV fluids. 09/09/2020-latest blood sugar is 302. On insulin sliding scale, Lantus 50 units subcu twice a day. Diet exercise weight loss lifestyle modifications discussed with the patient. 09/10/2020-latest blood sugar is 212. Better controlled. Plan is to continue insulin sliding scale before meals and at bedtime and to continue Lantus 50 units subcu twice a day. 09/11/2020-blood sugar this morning is 103. Patient is encouraged to eat. To continue insulin sliding scale at this time. To decrease the Lantus to 25 units twice a day. 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 ID consult was requested. Consultation with Dr. Samy Torres is requested for a CAR[place]INA. Presently on levofloxacin and vancomycin. Antibiotics will be adjusted based on ID recommendations. Sensitive to levofloxacin and vancomycin. 09/12 please see discussion above. Patient will be started on Zosyn for 7 days as suggested by ID and this will be changed to cefazolin thereafter for a total duration of 4 weeks after negative blood cultures 09/13Gram-negative rods identified as psychrobacter phgenylpyruvicus. Repeat blood culture was done today and is currently pending 09/14 patient has been switched to Zosyn since 09/13. Cultures pending today 09/15 blood cultures negative x2 days. Patient she will likely have a PICC line inserted hopefully by Friday and if he remains stable he can be discharged home to complete a 4-week course of antibiotics from negative blood culture (4) Superficial venous thrombosis of arm Qualifiers: Laterality: right Qualified Code(s): I82.611 - Acute embolism and thrombosis of superficial veins of right upper extremity Is this a current diagnosis for this admission?: Yes Plan: Likely related to vascular access. This is not DVT so no need for AC. Warm compress, ASA if needed Continue with local care (5) Bipolar 1 disorder Is this a current diagnosis for this admission?: Yes (6) Chronic back pain greater than 3 months duration Is this a current diagnosis for this admission?: Yes Plan: Patient apparently has hardware in place. He is also on chronic opioid Therapy including methadone. We will continue same (7) Chronically on opiate therapy Is this a current diagnosis for this admission?: Yes Plan: Continue home methadone dosing as needed (8) Hypokalemia Is this a current diagnosis for this admission?: Yes (9) Anrfq-7-hlmcxnomeic deficiency Is this a current diagnosis for this admission?: Yes - Plan Summary Summary: Patient had a CAROLINA done today and apparently it did not show any overt signs of of vegetations. I discussed with Dr. Jorge. He was not able to identify any vegetations. Patient has hardware in his back from back surgery and he does have chronic back pain for which he is on methadone. MRI of the lumbar spine showed severe stenosis but no epidural fluid collection. Blood cultures is positive for MSSA and apparently has a penicillin allergy hence patient is on vancomycin and Levaquin for gram-negative rods. Infectious disease recommendations appreciated. Is felt that the GNR is likely translocation from GI tract in the setting of nausea and vomiting and initial MRSA most likely skin contamination. The MSSA is felt to be possibly hospital-acquired recommendation for CAR[place] which has been done today noted. We will repeat blood cultures to document clearance of bacteremia. ID further recommends either Zosyn cover both gram-negative rods and MSSA for 7 days and then transition to cefazolin or cefazolin 2 g every 8 as as the GNR was slightly transient bacteremia. His situation for 4 weeks treatment considering that he has orthopedic hardware is suggested 09/13 obtain sonogram of the right upper extremity due to swelling and erythema at the elbow to rule out thrombophlebitis or DVT. Patient will ultimately need a PICC line once his bacteremia has cleared 09/14 we will plan on possible DC home by the end of the week or likely next week. If blood cultures remain negative he will need a PICC line Order physical therapy 09/15 chest call Patient spouse at [phone] but was unable to reach her no was I able to leave a voicemail 09/16/2020 Diabetic ketoacidosis-resolved Diabetes mellitus type 2-actually on dextrose solution due to hypoglycemia. Continue Accu-Cheks. Should improve with consistent diet Bacteremia-methicillin sensitive staph aureus. In light of the hardware in his back he will need 4 weeks of antibiotics from the date of the first negative blood culture. This will require a PICC line. Reviewed Dr. Farris's infectious disease note as well. Bipolar disorder-discussion with reveals that he was not on many of his medications for the 2 to 3 weeks prior to hospitalization. We will gradually introduce medications. 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 Currently on 10 mg every 6 hours as needed. I will add Lidoderm patches to his low back and possibly give a scheduled dosing of the methadone with other pain management efforts. We will recheck laboratory studies tomorrow. Lengthy discussion with the patient's regarding his current status and treatment plan. - Time Time Spent with patient: 25-34 minutes Medications reviewed and adjusted accordingly: Yes Anticipated Discharge Disposition: Home with Home Health - Home infusion Anticipated Discharge Timeframe: Unknown
[2020-09-16] MEDS: POTASSI CL 20 MEQ/D5NS 1L 20 MEQ/1,000 ML RTUINJ IV PRN (13:55)
[2020-09-16] MEDS ORDERED: CEFAZOLIN 2 GM/D5W RTU 2 GM/50 ML RTUPB IV SCH (14:00)
[2020-09-16 14:24] LABS: ARTERIAL BLOOD BASE EXCESS 0.4 mmol/L; ARTERIAL BLOOD H2CO3 1.14 mmol/L (1.05-1.35); ARTERIAL BLOOD HCO3 24.6 mmol/L (20-24); ARTERIAL BLOOD O2 SATURATION 97.5 % (94-98); ARTERIAL BLOOD PCO2 37.8 mmHg (35-45); ARTERIAL BLOOD PH 7.43 (7.35-7.45); ARTERIAL BLOOD PO2 96.1 mmHg (80-100); ARTERIAL BLOOD TOTAL CO2 25.8 mmol/L (23-27)
[2020-09-16 14:25] LABS: ARTERIAL BLOOD FIO2 ROOM AIR
[2020-09-16] MEDS: CEFAZOLIN SODIUM 2 GM in DEXTROSE 5%-WATER 100 ML IV SCH ×2 (14:49→21:24)
[2020-09-16] MEDS: LIDOCAINE 5% (700 MG) TRANSDERMAL ADH..PATCH TP SCH (14:50)
[2020-09-16] MEDS ORDERED: ZIPRASIDONE MESYLATE INJ/PF 20 MG SDV IM PRN (17:51)
[2020-09-16] MEDS: LORAZEPAM INJ 2 MG/1 ML VIAL IV PRN (18:41)
[2020-09-16] MEDS: PAROXETINE HCL 20 MG TABLET PO SCH (21:24)
[2020-09-16] MEDS: MELATONIN 5 MG TABLET PO SCH (21:25)
[2020-09-16] MEDS ORDERED: RISPERIDONE 1 MG TABLET PO SCH (22:00)
[2020-09-17] MEDS: LORAZEPAM INJ 2 MG/1 ML VIAL IV PRN ×2 (04:32→22:05)
[2020-09-17] MEDS: POTASSI CL 20 MEQ/D5NS 1L 20 MEQ/1,000 ML RTUINJ IV PRN ×2 (04:40→22:15)
[2020-09-17] MEDS: CEFAZOLIN SODIUM 2 GM in DEXTROSE 5%-WATER 100 ML IV SCH ×3 (05:56→22:04)
[2020-09-17] MEDS: HEPARIN SOD (PORCINE) 5,000 UNIT/ML 1 ML VIAL SUBCUT SCH ×3 (05:56→22:05)
[2020-09-17] MEDS: PANTOPRAZOLE SODIUM 40 MG TABLET.DR PO SCH ×2 (05:57→16:36)
[2020-09-17 08:24] LABS: ANION GAP 8 (5-19); BLOOD UREA NITROGEN 4 mg/dL (7-20); C-REACTIVE PROTEIN 30.5 mg/L (<10.0); CALCIUM 8.2 mg/dL (8.4-10.2); CARBON DIOXIDE 23 mmol/L (22-30); CHLORIDE 109 mmol/L (98-107); GLUCOSE 126 mg/dL (75-110); POTASSIUM 3.9 mmol/L (3.6-5.0)
[2020-09-17 09:22] LABS: ABSOLUTE EOSINOPHILS # (AUTO) 0.1 10^3/uL (0.0-0.6); ABSOLUTE LYMPHOCYTES (AUTO) 0.9 10^3/uL (0.5-4.7); ABSOLUTE MONOCYTES (AUTO) 0.3 10^3/uL (0.1-1.4); ABSOLUTE NEUT (AUTO) 2.3 10^3/uL (1.7-8.2); BASOPHILS % (AUTO) 0.8 % (0-2); EOSINOPHILS % (AUTO) 1.5 % (0-6); HEMATOCRIT 22.4 % (37.9-51.0); MEAN CORPUSCULAR HEMOGLOBIN 33.8 pg (27.0-33.4); MEAN CORPUSCULAR HGB CONC 35.4 g/dL (32.0-36.0); MEAN CORPUSCULAR VOLUME 95 fl (80-97); MONOCYTES % (AUTO) 9.8 % (3-13); PLATELET COUNT 253 10^3/uL (150-450); RED BLOOD COUNT 2.35 10^6/uL (4.35-5.55); RED CELL DISTRIBUTION WIDTH 14.7 % (11.5-14.0); SEGMENTED NEUTROPHILS % (AUTO) 63.9 % (42-78); TOTAL CELLS COUNTED % (AUTO) 100 %; WHITE BLOOD COUNT 3.6 10^3/uL (4.0-10.5)
[2020-09-17 09:24] LABS: HEMOGLOBIN 7.9 g/dL (13.5-17.0)
[2020-09-17] MEDS: INSULIN REG, HUMAN 100 UNIT/ML 3 ML VIAL (PYX) SUBCUT SCH ×4 (09:47→22:07)
[2020-09-17] MEDS: ERGOCALCIFEROL (VITAMIN D2) 50000 UNIT (1.25 MG) CAPSULE PO SCH (09:57)
[2020-09-17] MEDS: PROPRANOLOL HCL 10 MG TABLET PO SCH ×2 (09:57→22:06)
[2020-09-17] MEDS: OXCARBAZEPINE 150 MG TABLET PO SCH ×2 (09:57→17:34)
[2020-09-17] MEDS: BENZTROPINE MESYLATE 1 MG TABLET PO SCH (10:00)
[2020-09-17] MEDS ORDERED: RISPERIDONE 1 MG TABLET PO SCH (10:00)
[2020-09-17] MEDS: LORATADINE 10 MG TABLET PO SCH (10:00)
[2020-09-17] MEDS: FLUTICASONE/VILANTEROL 200-25 MCG/DOSE IH SCH (10:16)
[2020-09-17] MEDS: LIDOCAINE 5% (700 MG) TRANSDERMAL ADH..PATCH TP SCH (10:17)
[2020-09-17] MEDS: LAMOTRIGINE 100 MG TABLET PO SCH ×2 (10:51→22:05)
[2020-09-17] MEDS: METHADONE HCL 10 MG TABLET PO PRN (11:00)
[2020-09-17] MEDS ORDERED: NORMAL SALINE 250 ML IV PRN ×2 (12:34)
[2020-09-17] MEDS ORDERED: FUROSEMIDE INJ/PF 20 MG/2 ML SDV IV PRN (12:34)
--- NOTE | 2020-09-17 12:41 | PDOC PROGRESS REPORT ---
Subjective Progress Note for:: 09/17/20 Subjective:: Patient response to verbal and tactile stimulus but answers are not comprehensible. Eyes rolled back. Reason For Visit: DKA (DIABETIC KETOACIDOSES) Physical Exam Vital Signs: Temp Pulse Resp BP Pulse Ox 98.7 F 72 15 78/58 L 96 09/17/20 11:55 09/17/20 11:55 09/17/20 11:55 09/17/20 11:55 09/17/20 05:19 Intake & Output 09/16/20 09/17/20 09/18/20 07:59 06:59 06:59 Intake Total Output Total Balance Weight General appearance: PRESENT: other - Patient with head back and eyes rolled back. Snoring. Response to stimuli but with incomprehensible effort to speak Respiratory exam: PRESENT: clear to auscultation ariadne - Anteriorly, symmetrical, unlabored. ABSENT: rales, rhonchi, tachypnea, wheezes Cardiovascular exam: PRESENT: RRR, +S1, +S2 GI/Abdominal exam: PRESENT: normal bowel sounds, soft. ABSENT: distended, tende rness Extremities exam: PRESENT: pedal edema, +1 edema Neurological exam: ABSENT: awake Results Laboratory Results: 09/17/20 09:07 09/17/20 07:10 09/16/20 09/17/20 09/17/20 14:00 07:10 07:10 WBC Cancelled RBC Cancelled Hgb Cancelled Hct Cancelled MCV Cancelled MCH Cancelled MCHC Cancelled RDW Cancelled Plt Count Cancelled Seg Neutrophils % Cancelled Carbonic Acid 1.14 HCO3/H2CO3 Ratio 21:1 ABG pH 7.43 ABG pCO2 37.8 ABG pO2 96.1 ABG HCO3 24.6 H ABG O2 Saturation 97.5 ABG Base Excess 0.4 FiO2 ROOM AIR Sodium 139.5 Potassium 3.9 Chloride 109 H Carbon Dioxide 23 Anion Gap 8 BUN 4 L Creatinine 1.61 H Est GFR ( Amer) 56 L Glucose 126 H Calcium 8.2 L Magnesium 1.8 C-Reactive Protein 30.5 H 09/17/20 09:07 WBC 3.6 L RBC 2.35 L Hgb 7.9 L Hct 22.4 L MCV 95 MCH 33.8 H MCHC 35.4 RDW 14.7 H Plt Count 253 Seg Neutrophils % 63.9 Carbonic Acid HCO3/H2CO3 Ratio ABG pH ABG pCO2 ABG pO2 ABG HCO3 ABG O2 Saturation ABG Base Excess FiO2 Sodium Potassium Chloride Carbon Dioxide Anion Gap BUN Creatinine Est GFR ( Amer) Glucose Calcium Magnesium C-Reactive Protein 09/05/20 09/05/20 09/05/20 10:29 15:30 15:30 Creatine Kinase 51 L Troponin I 0.015 0.012 09/05/20 09/05/20 09/06/20 23:01 23:01 03:26 Creatine Kinase 53 L 50 L Troponin I 0.014 09/06/20 03:26 Creatine Kinase Troponin I 0.013 Impressions: Abdomen/Pelvis CT 09/05/20 11:47 IMPRESSION: NO SIGNIFICANT OR ACUTE PROCESS IN THE ABDOMEN OR PELVIS. Chest X-Ray 09/09/20 00:00 IMPRESSION: NO ACUTE RADIOGRAPHIC FINDING IN THE CHEST. Lumbar Spine MRI 09/11/20 00:00 IMPRESSION: Limited study due to artifact from the indwelling hardware. Follow-up studies are recommended if clinical symptoms persist. Correlation with sed rate and other laboratory values is recommended. No focal epidural fluid collections are identified at this time. No abnormal enhancement is appreciated. There is moderate to severe central stenosis at L4-L5 with bilateral foraminal stenosis. This is significantly progressed when compared to prior MRI. Venous Doppler Study 09/13/20 00:00 IMPRESSION: Focal acute superficial venous thrombus in the cephalic vein at the right antecubital fossa. No DVT. Head CT 09/14/20 00:00 IMPRESSION: 1. No acute intracranial abnormality identified. This exam was performed according to our departmental dose-optimization program, which includes automated exposure control, adjustment of the mA and/or kV according to patient size and/or use of iterative reconstruction technique. Assessment and Plan - Diagnosis (1) DKA (diabetic ketoacidoses) Qualifiers: Diabetes mellitus type: type 2 Diabetes mellitus complication detail: without coma Qualified Code(s): E11.10 - Type 2 diabetes mellitus with ketoacidosis without coma Is this a current diagnosis for this admission?: Yes (2) Type 2 diabetes mellitus Qualifiers: Diabetes mellitus shelter insulin use: without shelter use Diabetes mellitus complication status: without complication Qualified Code(s): E11.9 - Type 2 diabetes mellitus without complications Is this a current diagnosis for this admission?: Yes (3) MSSA bacteremia Is this a current diagnosis for this admission?: Yes (4) Superficial venous thrombosis of arm Qualifiers: Laterality: right Qualified Code(s): I82.611 - Acute embolism and thrombosis of superficial veins of right upper extremity Is this a current diagnosis for this admission?: Yes (5) Bipolar 1 disorder Is this a current diagnosis for this admission?: Yes (6) Chronic back pain greater than 3 months duration Is this a current diagnosis for this admission?: Yes (7) Chronically on opiate therapy Is this a current diagnosis for this admission?: Yes (8) Hypokalemia Is this a current diagnosis for this admission?: Yes (9) Rqmak-7-lqvuremqsuw deficiency Is this a current diagnosis for this admission?: Yes (10) Anemia Qualifiers: Anemia type: unspecified type Qualified Code(s): D64.9 - Anemia, unspecified Is this a current diagnosis for this admission?: Yes - Plan Summary Summary: Patient had a CAR[place] done today and apparently it did not show any overt signs of of vegetations. I discussed with Dr. Jorge. He was not able to identify any vegetations. Patient has hardware in his back from back surgery and he does have chronic back pain for which he is on methadone. MRI of the lumbar spine showed severe stenosis but no epidural fluid collection. Blood cultures is positive for MSSA and apparently has a penicillin allergy hence patient is on vancomycin and Levaquin for gram-negative rods. Infectious disease recommendations appreciated. Is felt that the GNR is likely translocation from GI tract in the setting of nausea and vomiting and initial MRSA most likely skin contamination. The MSSA is felt to be possibly hospital-acquired recommendation for [place] which has been done today noted. We will repeat blood cultures to document clearance of bacteremia. ID further recommends either Zosyn cover both gram-negative rods and MSSA for 7 days and then transition to cefazolin or cefazolin 2 g every 8 as as the GNR was slightly transient bacteremia. His situation for 4 weeks treatment considering that he has orthopedic hardware is suggested 09/13 obtain sonogram of the right upper extremity due to swelling and erythema at the elbow to rule out thrombophlebitis or DVT. Patient will ultimately need a PICC line once his bacteremia has cleared 09/14 we will plan on possible DC home by the end of the week or likely next week. If blood cultures remain negative he will need a PICC line Order physical therapy 09/15 chest call Patient spouse at [phone] but was unable to reach her no was I able to leave a voicemail 09/16/2020 Diabetic ketoacidosis-resolved Diabetes mellitus type 2-actually on dextrose solution due to hypoglycemia. Continue Accu-Cheks. Should improve with consistent diet Bacteremia-methicillin sensitive staph aureus. In light of the hardware in his back he will need 4 weeks of antibiotics from the date of the first negative blood culture. This will require a PICC line. Reviewed Dr. Farris's infectious disease note as well. Bipolar disorder-discussion with reveals that he was not on many of his medications for the 2 to 3 weeks prior to hospitalization. We will gradually introduce medications. 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 Currently on 10 mg every 6 hours as needed. I will add Lidoderm patches to his low back and possibly give a scheduled dosing of the methadone with other pain management efforts. We will recheck laboratory studies tomorrow. Lengthy discussion with the patient's regarding his current status and treatment plan. 09/17/2020 Continue dextrose solution at this point. Once the patient is more awake and alert with good oral intake we will discontinue the fluid. Now on Ancef for the anticipated 4 weeks of therapy. We will order a PICC line for tomorrow. I reviewed today status with the patient's . We reviewed previous medication changes made yesterday. We also planned medication changes for toda y. This will include slowly tapering off the Risperdal. We will decrease to 1 mg each morning. We will continue the Trileptal as is. I already decreased the Lamictal to 150 mg twice daily. We will slowly taper as much medication as possible. Tomorrow, if the patient is able to interact and follow some commands I will reengage physical therapy. The patient's is acceptable the plan changes. Anemia-the patient may likely have iron deficiency anemia. His hemoglobin has been below 8 on 2 consecutive CBCs. I explained the benefits of transfusing the patient versus risk. I explained to her that we will transfuse 1 unit and check for affect. I have also asked that they draw anemia studies when they draw the type and screen tube. I also james inflammatory markers this morning. CRP and sed rate are both elevated. - Time Time Spent with patient: 15-24 minutes Medications reviewed and adjusted accordingly: Yes Anticipated Discharge Disposition: Unknown Anticipated Discharge Timeframe: Unknown
[2020-09-17 13:11] LABS: IRON(TIBC) 82.7 ug/dL (49-181)
[2020-09-17 13:12] LABS: ABSOLUTE RETICS # 0.102 10^6/uL (0.028-0.122); RETICULOCYTE COUNT (AUTO) 4.29 % (0.66-2.85)
[2020-09-17 14:17] LABS: FOLATE 6.03 ng/mL (>2.76)
[2020-09-17] MEDS ORDERED: ZIPRASIDONE MESYLATE INJ/PF 20 MG SDV IM PRN (18:45)
[2020-09-17 20:36] LABS: ABSOLUTE EOSINOPHILS # (AUTO) 0.1 10^3/uL (0.0-0.6); ABSOLUTE LYMPHOCYTES (AUTO) 1.1 10^3/uL (0.5-4.7); ABSOLUTE MONOCYTES (AUTO) 0.4 10^3/uL (0.1-1.4); ABSOLUTE NEUT (AUTO) 3.2 10^3/uL (1.7-8.2); EOSINOPHILS % (AUTO) 1.2 % (0-6); HEMATOCRIT 24.9 % (37.9-51.0); HEMOGLOBIN 8.9 g/dL (13.5-17.0); LYMPHOCYTES % (AUTO) 22.3 % (13-45); MEAN CORPUSCULAR HEMOGLOBIN 32.3 pg (27.0-33.4); MEAN CORPUSCULAR HGB CONC 35.7 g/dL (32.0-36.0); MONOCYTES % (AUTO) 8.3 % (3-13); PLATELET COUNT 277 10^3/uL (150-450); RED BLOOD COUNT 2.75 10^6/uL (4.35-5.55); RED CELL DISTRIBUTION WIDTH 18.2 % (11.5-14.0); SEGMENTED NEUTROPHILS % (AUTO) 67.2 % (42-78); TOTAL CELLS COUNTED % (AUTO) 100 %; WHITE BLOOD COUNT 4.8 10^3/uL (4.0-10.5)
[2020-09-17 20:37] LABS: MEAN CORPUSCULAR VOLUME 91 fl (80-97)
[2020-09-17] MEDS: CYCLOBENZAPRINE HCL 10 MG TABLET PO PRN (22:05)
[2020-09-17] MEDS: MELATONIN 5 MG TABLET PO SCH (22:06)
[2020-09-17] MEDS: PAROXETINE HCL 20 MG TABLET PO SCH (22:06)
[2020-09-18] MEDS: METHADONE HCL 10 MG TABLET PO SCH ×4 (00:27→17:56)
[2020-09-18] MEDS: CEFAZOLIN SODIUM 2 GM in DEXTROSE 5%-WATER 100 ML IV SCH ×3 (06:11→22:33)
[2020-09-18] MEDS: HEPARIN SOD (PORCINE) 5,000 UNIT/ML 1 ML VIAL SUBCUT SCH ×3 (06:12→22:34)
[2020-09-18] MEDS: PANTOPRAZOLE SODIUM 40 MG TABLET.DR PO SCH ×2 (06:12→17:56)
[2020-09-18] MEDS: INSULIN REG, HUMAN 100 UNIT/ML 3 ML VIAL (PYX) SUBCUT SCH ×4 (08:00→22:31)
[2020-09-18] MEDS ORDERED: RISPERIDONE 1 MG TABLET PO SCH (10:00)
[2020-09-18] MEDS: FLUTICASONE/VILANTEROL 200-25 MCG/DOSE IH SCH (11:27)
[2020-09-18] MEDS: LORATADINE 10 MG TABLET PO SCH (11:28)
[2020-09-18] MEDS: LAMOTRIGINE 100 MG TABLET PO SCH ×2 (11:29→22:34)
[2020-09-18] MEDS: OXCARBAZEPINE 150 MG TABLET PO SCH ×2 (11:34→17:56)
[2020-09-18] MEDS: LIDOCAINE 5% (700 MG) TRANSDERMAL ADH..PATCH TP SCH (11:35)
[2020-09-18] MEDS: BENZTROPINE MESYLATE 1 MG TABLET PO SCH (11:38)
[2020-09-18] MEDS: PROPRANOLOL HCL 10 MG TABLET PO SCH (11:47)
--- NOTE | 2020-09-18 11:53 | PDOC PROGRESS REPORT ---
Subjective Progress Note for:: 09/18/20 Subjective:: The patient is actually more responsive today. His is pleased with the progress. He still having significant back pain and moving him in the bed is still uncomfortable and upsetting. Reason For Visit: DKA (DIABETIC KETOACIDOSES) Physical Exam Vital Signs: Temp Pulse Resp BP Pulse Ox 98.5 F 70 18 98/57 L 92 09/18/20 07:43 09/18/20 07:43 09/18/20 07:43 09/18/20 07:43 09/18/20 07:43 Intake & Output 09/17/20 09/18/20 09/19/20 06:59 06:59 06:59 Intake Total 2300 Output Total 2955 Balance -655 Weight 116.2 kg General appearance: PRESENT: mild distress Head exam: PRESENT: atraumatic, normocephalic Eye exam: PRESENT: other - Eyes no longer rolled to the back of the head Ear exam: PRESENT: normal external ear exam. ABSENT: bleeding, drainage Respiratory exam: PRESENT: clear to auscultation ariadne, symmetrical, unlabored. ABSENT: rales, rhonchi, tachypnea, wheezes Cardiovascular exam: PRESENT: RRR, +S1, +S2 GI/Abdominal exam: PRESENT: normal bowel sounds, soft. ABSENT: tenderness Neurological exam: PRESENT: awake, oriented to person - Response to his name. Talks more to his than anybody else.. ABSENT: alert Results Laboratory Results: 09/17/20 20:25 09/17/20 07:10 09/17/20 09/17/20 09/17/20 07:10 09:07 12:59 WBC RBC Hgb Hct MCV MCH MCHC RDW Plt Count Seg Neutrophils % Retic Count (auto) 4.29 H Iron 82.7 TIBC 229 L % Saturation 36 Ferritin 756.00 H Vitamin B12 423.0 Folate 6.03 Blood Type A POSITIVE Antibody Screen NEGATIVE 09/17/20 20:25 WBC 4.8 RBC 2.75 L Hgb 8.9 L Hct 24.9 L MCV 91 D MCH 32.3 MCHC 35.7 RDW 18.2 H Plt Count 277 Seg Neutrophils % 67.2 Retic Count (auto) Iron TIBC % Saturation Ferritin Vitamin B12 Folate Blood Type Antibody Screen 09/13/20 09:17 Blood Blood Culture - Final NO GROWTH IN 5 DAYS 09/13/20 06:58 Blood Blood Culture - Final NO GROWTH IN 5 DAYS 09/05/20 09/05/20 09/05/20 10:29 15:30 15:30 Creatine Kinase 51 L Troponin I 0.015 0.012 09/05/20 09/05/20 09/06/20 23:01 23:01 03:26 Creatine Kinase 53 L 50 L Troponin I 0.014 09/06/20 03:26 Creatine Kinase Troponin I 0.013 Impressions: Abdomen/Pelvis CT 09/05/20 11:47 IMPRESSION: NO SIGNIFICANT OR ACUTE PROCESS IN THE ABDOMEN OR PELVIS. Chest X-Ray 09/09/20 00:00 IMPRESSION: NO ACUTE RADIOGRAPHIC FINDING IN THE CHEST. Lumbar Spine MRI 09/11/20 00:00 IMPRESSION: Limited study due to artifact from the indwelling hardware. Follow-up studies are recommended if clinical symptoms persist. Correlation with sed rate and other laboratory values is recommended. No focal epidural fluid collections are identified at this time. No abnormal enhancement is appreciated. There is moderate to severe central stenosis at L4-L5 with bilateral foraminal stenosis. This is significantly progressed when compared to prior MRI. Venous Doppler Study 09/13/20 00:00 IMPRESSION: Focal acute superficial venous thrombus in the cephalic vein at the right antecubital fossa. No DVT. Head CT 09/14/20 00:00 IMPRESSION: 1. No acute intracranial abnormality identified. This exam was performed according to our departmental dose-optimization program, which includes automated exposure control, adjustment of the mA and/or kV according to patient size and/or use of iterative reconstruction technique. 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: without usp use Diabetes mellitus complication status: without complication Qualified Code(s): E11.9 - Type 2 diabetes mellitus without complications Is this a current diagnosis for this admission?: Yes (3) MSSA bacteremia Is this a current diagnosis for this admission?: Yes (4) Superficial venous thrombosis of arm Qualifiers: Laterality: right Qualified Code(s): I82.611 - Acute embolism and thrombosis of superficial veins of right upper extremity Is this a current diagnosis for this admission?: Yes (5) Bipolar 1 disorder Is this a current diagnosis for this admission?: Yes (6) Chronic back pain greater than 3 months duration Is this a current diagnosis for this admission?: Yes (7) Chronically on opiate therapy Is this a current diagnosis for this admission?: Yes (8) Hypokalemia Is this a current diagnosis for this admission?: Yes (9) Kdhsn-0-wlmycbnxroo deficiency Is this a current diagnosis for this admission?: Yes (10) Anemia Qualifiers: Anemia type: unspecified type Qualified Code(s): D64.9 - Anemia, unspecified Is this a current diagnosis for this admission?: Yes - Plan Summary Summary: Patient had a CAROLINA done today and apparently it did not show any overt signs of of vegetations. I discussed with Dr. Jorge. He was not able to identify any vegetations. Patient has hardware in his back from back surgery and he does have chronic back pain for which he is on methadone. MRI of the lumbar spine showed severe stenosis but no epidural fluid collection. Blood cultures is positive for MSSA and apparently has a penicillin allergy hence patient is on vancomycin and Levaquin for gram-negative rods. Infectious disease recommendations appreciated. Is felt that the GNR is likely translocation from GI tract in the setting of nausea and vomiting and initial MRSA most likely skin contamination. The MSSA is felt to be possibly hospital-acquired recommendation for CAROLINA which has been done today noted. We will repeat blood cultures to document clearance of bacteremia. ID further recommends either Zosyn cover both gram-negative rods and MSSA for 7 days and then transition to cefazolin or cefazolin 2 g every 8 as as the GNR was slightly transient bacteremia. His situation for 4 weeks treatment considering that he has orthopedic hardware is suggested 09/13 obtain sonogram of the right upper extremity due to swelling and erythema at the elbow to rule out thrombophlebitis or DVT. Patient will ultimately need a PICC line once his bacteremia has cleared 09/14 we will plan on possible DC home by the end of the week or likely next week. If blood cultures remain negative he will need a PICC line Order physical therapy 09/15 chest call Patient spouse at [phone] but was unable to reach her no was I able to leave a voicemail 09/16/2020 Diabetic ketoacidosis-resolved Diabetes mellitus type 2-actually on dextrose solution due to hypoglycemia. Continue Accu-Cheks. Should improve with consistent diet Bacteremia-methicillin sensitive staph aureus. In light of the hardware in his back he will need 4 weeks of antibiotics from the date of the first negative blood culture. This will require a PICC line. Reviewed Dr. Farris's infectious disease note as well. Bipolar disorder-discussion with reveals that he was not on many of his medications for the 2 to 3 weeks prior to hospitalization. We will gradually introduce medications. 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 Currently on 10 mg every 6 hours as needed. I will add Lidoderm patches to his low back and possibly give a scheduled dosing of the methadone with other pain management efforts. We will recheck laboratory studies tomorrow. Lengthy discussion with the patient's regarding his current status and treatment plan. 09/17/2020 Continue dextrose solution at this point. Once the patient is more awake and alert with good oral intake we will discontinue the fluid. Now on Ancef for the anticipated 4 weeks of therapy. We will order a PICC line for tomorrow. I reviewed today status with the patient's . We reviewed previous medication changes made yesterday. We also planned medication changes for today. This will include slowly tapering off the Risperdal. We will decrease to 1 mg each morning. We will continue the Trileptal as is. I already decreased the Lamictal to 150 mg twice daily. We will slowly taper as much medication as possible. Tomorrow, if the patient is able to interact and follow some commands I will reengage physical therapy. The patient's is acceptable the plan changes. Anemia-the patient may likely have iron deficiency anemia. His hemoglobin has been below 8 on 2 consecutive CBCs. I explained the benefits of transfusing the patient versus risk. I explained to her that we will transfuse 1 unit and check for affect. I have also asked that they draw anemia studies when they draw the type and screen tube. I also james inflammatory markers this morning. CRP and sed rate are both elevated. 09/18/2020 I am constructing a staged plan to wean patient to the absolute basic medications. The plan is as follows; I will taper Lamictal to off over the next 5 to 6 days I am instituting a trial of Keppra to cover his history of seizure disorder. We will start at 500 mg twice daily. His reports that the only reason they chose Lamictal was because his daughter was on the same medication and it controlled her seizures. I have discontinued the Risperdal completely If he is more interactive consider resuming physical therapy tomorrow Back pain-I have changed him to methadone 10 mg every 6 hours. This is still half the dose that he was on at home. Other considerations might be to reposition him intermittently for his back pain. He is also having Lidoderm patches placed on his low back Because of fluids and low albumin he has some swelling in his extremities. Consider applying compression sleeves and CHELSEA hose. Staph bacteremia with spinal hardware-the patient will need at least 4 weeks of therapy for the methicillin sensitive staph aureus. I have chosen cephalexin. I have asked for a PICC line to be placed. His sed rate and CRP should be monitored weekly along with a CMP, CBC and sed rate or CRP weekly. He should also be on probiotics while on antibiotics. If the sed rate/CRP are not improving we may need to extend the antibiotics. Hypokalemia-current IV fluids have dextrose and potassium. I will decrease the rate to 50 mL/h as his glucose is improving. We will need to monitor the electrolytes. Hypoglycemia-should improve as oral intake improves and then will be able to discontinue fluids altogether. Anemia-likely from illness although his polypharmacy could be contributing. Normal iron levels, normal folate and B12 is normal but in the lower range of normal. I will add B12 supplement. He tolerated the transfusion and is showing improving hemoglobin. - Time Time Spent with patient: 15-24 minutes Medications reviewed and adjusted accordingly: Yes Anticipated Discharge Disposition: Unknown Anticipated Discharge Timeframe: Unknown
[2020-09-18] MEDS: POTASSI CL 20 MEQ/D5NS 1L 20 MEQ/1,000 ML RTUINJ IV PRN (14:44)
[2020-09-18 15:07] LABS: ABSOLUTE EOSINOPHILS # (AUTO) 0.1 10^3/uL (0.0-0.6); ABSOLUTE LYMPHOCYTES (AUTO) 1.2 10^3/uL (0.5-4.7); ABSOLUTE MONOCYTES (AUTO) 0.5 10^3/uL (0.1-1.4); ABSOLUTE NEUT (AUTO) 4.4 10^3/uL (1.7-8.2); BASOPHILS % (AUTO) 0.5 % (0-2); HEMATOCRIT 26.8 % (37.9-51.0); HEMOGLOBIN 9.6 g/dL (13.5-17.0); LYMPHOCYTES % (AUTO) 19.1 % (13-45); MEAN CORPUSCULAR HEMOGLOBIN 32.8 pg (27.0-33.4); MEAN CORPUSCULAR HGB CONC 35.7 g/dL (32.0-36.0); MEAN CORPUSCULAR VOLUME 92 fl (80-97); MONOCYTES % (AUTO) 8.2 % (3-13); PLATELET COUNT 276 10^3/uL (150-450); RED BLOOD COUNT 2.92 10^6/uL (4.35-5.55); SEGMENTED NEUTROPHILS % (AUTO) 71.2 % (42-78); TOTAL CELLS COUNTED % (AUTO) 100 %; WHITE BLOOD COUNT 6.2 10^3/uL (4.0-10.5)
[2020-09-18 15:22] LABS: ALBUMIN 2.5 g/dL (3.5-5.0); ALKALINE PHOSPHATASE 85 U/L (38-126); ANION GAP 8 (5-19); ASPARTATE AMINO TRANSFERASE 53 U/L (17-59); BILIRUBIN,DIRECT 0.1 mg/dL (0.0-0.4); BILIRUBIN,TOTAL 0.5 mg/dL (0.2-1.3); BLOOD UREA NITROGEN 5 mg/dL (7-20); CALCIUM 8.2 mg/dL (8.4-10.2); CARBON DIOXIDE 26 mmol/L (22-30); CHLORIDE 107 mmol/L (98-107); GLUCOSE 121 mg/dL (75-110); POTASSIUM 3.9 mmol/L (3.6-5.0); TOTAL PROTEIN 5.1 g/dL (6.3-8.2)
[2020-09-18 15:29] LABS: INTERNATIONAL RATION (INR) 1.23; PARTIAL THROMBOPLASTIN TIME 41.8 SEC (23.5-35.8); PROTHROMBIN TIME 15.7 SEC (11.4-15.4)
[2020-09-18] MEDS ORDERED: POTASSI CL 20 MEQ/D5NS 1L 20 MEQ/1,000 ML RTUINJ IV PRN (17:55)
[2020-09-18] MEDS: PAROXETINE HCL 20 MG TABLET PO SCH (22:34)
[2020-09-18] MEDS: MELATONIN 5 MG TABLET PO SCH (22:34)
[2020-09-18] MEDS: CYANOCOBALAMIN (VITAMIN B-12) 1,000 MCG TABLET PO SCH (22:34)
[2020-09-18] MEDS: LEVETIRACETAM 500 MG TABLET PO SCH (22:34)
[2020-09-18] MEDS: PHARMACY COMMUNICATION ORDER MC SCH (22:35)
[2020-09-19] MEDS: LORAZEPAM INJ 2 MG/1 ML VIAL IV PRN (05:16)
[2020-09-19] MEDS: CEFAZOLIN SODIUM 2 GM in DEXTROSE 5%-WATER 100 ML IV SCH ×3 (05:17→21:33)
[2020-09-19] MEDS: PANTOPRAZOLE SODIUM 40 MG TABLET.DR PO SCH ×2 (05:19→17:25)
[2020-09-19] MEDS: METHADONE HCL 10 MG TABLET PO SCH ×4 (05:19→17:25)
[2020-09-19] MEDS: HEPARIN SOD (PORCINE) 5,000 UNIT/ML 1 ML VIAL SUBCUT SCH ×3 (05:25→21:45)
[2020-09-19] MEDS: INSULIN REG, HUMAN 100 UNIT/ML 3 ML VIAL (PYX) SUBCUT SCH ×4 (08:00→21:40)
--- NOTE | 2020-09-19 11:15 | RADIOLOGY REPORT (SQ) ---
EXAM DESCRIPTION: PICC INSERTION IMAGES COMPLETED DATE/TIME: 09/19/2020 10:20 am REASON FOR STUDY: needs senior living antibiotics. Dual lumen if possibl COMPARISON: None. FLUOROSCOPY TIME: 24 seconds 1 images saved to PACS. TECHNIQUE: Fluoroscopic and ultrasound guided PICC placement. LIMITATIONS: None. PROCEDURE: After written consent and assessment were obtained, the patient was brought into the fluo roscopy room and placed supine on the table. Ultrasound evaluation of potential access sites were per formed. After successfully identifying a patent left upper extremity basilic vein, the left upper arm was prepped and draped in a sterile fashion along with the ultrasound probe. The entry site was anes thetized with 1% lidocaine. A 21 gauge 7 cm needle was advanced through the skin and into the left ba silic vein under live ultrasound guidance. An ultrasound image was saved to PACS confirming access s ite. A .018 guide wire was then inserted through the needle and into the venous system. The needle w as then removed and an 11 blade scalpel was used to make a 1cm skin incision. A 5 fr peel-away sheat h was advanced over the wire and into the venous system. A measurement was then made using the existi ng wire and live fluoroscopic guidance. The wire was then removed and trimmed. The PICC was advanced through the peel-away sheath and into the venous system. The peel-away sheath was removed and the cat heter was adhered to the patients arm with a stat lock. The catheter was then aspirated and flushed a nd a sterile bandage was placed over the access site. A fluoroscopic spot image was saved to PACS co nfirming the catheter tip within the SVC. IMPRESSION: SUCCESSFUL PLACEMENT OF A 5 FR DUAL LUMEN 39 CM PICC IN THE LEFT BASILIC VEIN. COMMENT: Patient medication list reviewed: Yes- Quality ID# [id number]:Eligible professional attests to doc umenting in the medical record they obtained, updated, or reviewed the patient's current medications. . Quality ID 145: Final reports for procedures using fluoroscopy that document radiation exposure ant manjula, or exposure time and number of fluorographic images (if radiation exposure indices are not avail able) Quality ID #76: The patient was prepped and draped using maximum sterile barrier technique including cap, mask, sterile gown, sterile gloves, a large sterile sheet, hand hygiene, and 2% Chlorhexidine fo r cutaneous antisepsis. When ultrasound is used, sterile ultrasound techniques are followed requiring sterile gel and sterile probes. TECHNICAL DOCUMENTATION: JOB ID: [id number] 2010 [employer]- All Rights Reserved rev-04/03 Reading location - IP/workstation name: [email or web address]
[2020-09-19] MEDS: MAGNESIUM OXIDE 400 MG TABLET PO SCH ×3 (11:30→17:24)
[2020-09-19] MEDS: LACTOBACILLUS ACIDOPHILUS 250 MG TAB PO SCH ×2 (11:33→17:25)
[2020-09-19] MEDS: LORATADINE 10 MG TABLET PO SCH (11:33)
[2020-09-19] MEDS: LEVETIRACETAM 500 MG TABLET PO SCH ×2 (11:33→21:40)
[2020-09-19] MEDS: FLUTICASONE/VILANTEROL 200-25 MCG/DOSE IH SCH (11:34)
[2020-09-19] MEDS: LAMOTRIGINE 100 MG TABLET PO SCH ×2 (11:34→21:41)
[2020-09-19] MEDS: OXCARBAZEPINE 150 MG TABLET PO SCH ×2 (11:34→17:26)
[2020-09-19] MEDS: BENZTROPINE MESYLATE 1 MG TABLET PO SCH (11:38)
[2020-09-19] MEDS: LIDOCAINE 5% (700 MG) TRANSDERMAL ADH..PATCH TP SCH (14:12)
[2020-09-19] MEDS ORDERED: LORAZEPAM INJ 2 MG/1 ML VIAL IV PRN (17:54)
[2020-09-19] MEDS ORDERED: METHADONE HCL 1 MG/ML 30 ML BOTTLE PO SCH (18:00)
--- NOTE | 2020-09-19 18:16 | PDOC PROGRESS REPORT ---
Subjective Progress Note for:: 09/19/20 Subjective:: NAEO. He is very somnolent today and his was not present at bedside. Per RN and tech, he has been very somnolent x2 days and sleeps majority of the day. Reason For Visit: DKA (DIABETIC KETOACIDOSES) Physical Exam Vital Signs: Temp Pulse Resp BP Pulse Ox 97.5 F 69 18 104/67 95 09/19/20 15:22 09/19/20 15:22 09/19/20 15:22 09/19/20 15:22 09/19/20 15:22 Intake & Output 09/18/20 09/19/20 09/20/20 06:59 06:59 06:59 Intake Total 2300 2447 Output Total 2955 1470 300 Balance -655 977 -300 Weight 116.2 kg 115.7 kg General appearance: PRESENT: no acute distress, other - somnolent, awakens to voice but quickly falls asleep again Eye exam: ABSENT: scleral icterus Mouth exam: PRESENT: moist Throat exam: ABSENT: post pharyngeal erythema Neck exam: ABSENT: JVD Respiratory exam: PRESENT: clear to auscultation ariadne, unlabored. ABSENT: accessory muscle use Cardiovascular exam: PRESENT: RRR GI/Abdominal exam: PRESENT: normal bowel sounds Extremities exam: ABSENT: pedal edema Neurological exam: PRESENT: other - somnolent, shakes head "no" when asked if we can speak or if I can examine him Skin exam: ABSENT: rash Results Laboratory Results: 09/18/20 14:41 09/18/20 14:41 09/05/20 09/05/20 09/05/20 10:29 15:30 15:30 Creatine Kinase 51 L Troponin I 0.015 0.012 09/05/20 09/05/20 09/06/20 23:01 23:01 03:26 Creatine Kinase 53 L 50 L Troponin I 0.014 09/06/20 03:26 Creatine Kinase Troponin I 0.013 Impressions: Abdomen/Pelvis CT 09/05/20 11:47 IMPRESSION: NO SIGNIFICANT OR ACUTE PROCESS IN THE ABDOMEN OR PELVIS. Chest X-Ray 09/09/20 00:00 IMPRESSION: NO ACUTE RADIOGRAPHIC FINDING IN THE CHEST. Lumbar Spine MRI 09/11/20 00:00 IMPRESSION: Limited study due to artifact from the indwelling hardware. Follow-up studies are recommended if clinical symptoms persist. Correlation with sed rate and other laboratory values is recommended. No focal epidural fluid collections are identified at this time. No abnormal enhancement is appreciated. There is moderate to severe central stenosis at L4-L5 with bilateral foraminal stenosis. This is significantly progressed when compared to prior MRI. Venous Doppler Study 09/13/20 00:00 IMPRESSION: Focal acute superficial venous thrombus in the cephalic vein at the right antecubital fossa. No DVT. Head CT 09/14/20 00:00 IMPRESSION: 1. No acute intracranial abnormality identified. This exam was performed according to our departmental dose-optimization program, which includes automated exposure control, adjustment of the mA and/or kV according to patient size and/or use of iterative reconstruction technique. PICC Line Insertion 09/19/20 00:00 IMPRESSION: SUCCESSFUL PLACEMENT OF A 5 FR DUAL LUMEN 39 CM PICC IN THE LEFT BASILIC VEIN. Assessment and Plan - Diagnosis (1) Anemia of chronic disease Is this a current diagnosis for this admission?: Yes (2) Acute kidney injury Is this a current diagnosis for this admission?: Yes (3) Zugch-1-nyfndzkpgqm deficiency Is this a current diagnosis for this admission?: Yes (4) Bipolar 1 disorder Is this a current diagnosis for this admission?: Yes (5) Chronic back pain greater than 3 months duration Is this a current diagnosis for this admission?: Yes (6) Chronically on opiate therapy Is this a current diagnosis for this admission?: Yes (7) DKA (diabetic ketoacidoses) Qualifiers: Diabetes mellitus type: type 2 Diabetes mellitus complication detail: without coma Qualified Code(s): E11.10 - Type 2 diabetes mellitus with ketoacidosis without coma Is this a current diagnosis for this admission?: Yes (8) Hypokalemia Is this a current diagnosis for this admission?: Yes (9) MSSA bacteremia Is this a current diagnosis for this admission?: Yes (10) Type 2 diabetes mellitus Qualifiers: Diabetes mellitus jail insulin use: without county coroner use Diabetes mellitus complication status: without complication Qualified Code(s): E11.9 - Type 2 diabetes mellitus without complications Is this a current diagnosis for this admission?: Yes - Plan Summary Summary: 09/16/2020 Diabetic ketoacidosis-resolved Diabetes mellitus type 2-actually on dextrose solution due to hypoglycemia. Continue Accu-Cheks. Should improve with consistent diet Bacteremia-methicillin sensitive staph aureus. In light of the hardware in his back he will need 4 weeks of antibiotics from the date of the first negative blood culture. This will require a PICC line. Reviewed Dr. Farris's infectious disease note as well. Bipolar disorder-discussion with reveals that he was not on many of his medications for the 2 to 3 weeks prior to hospitalization. We will gradually introduce medications. We will recheck laboratory studies tomorrow. Lengthy discussion with the patient's regarding his current status and treatment plan. 09/17/2020 Continue dextrose solution at this point. Once the patient is more awake and al ert with good oral intake we will discontinue the fluid. Now on Ancef for the anticipated 4 weeks of therapy. We will order a PICC line for tomorrow. I reviewed today status with the patient's . We reviewed previous medication changes made yesterday. We also planned medication changes for anirudh [place]. This will include slowly tapering off the Risperdal. We will decrease to 1 mg each morning. We will continue the Trileptal as is. I already decreased the Lamictal to 150 mg twice daily. We will slowly taper as much medication as possible. Tomorrow, if the patient is able to interact and follow some commands I will reengage physical therapy. The patient's is acceptable the plan changes. Anemia-the patient may likely have iron deficiency anemia. His hemoglobin has been below 8 on 2 consecutive CBCs. I explained the benefits of transfusing the patient versus risk. I explained to her that we will transfuse 1 unit and check for affect. I have also asked that they draw anemia studies when they draw the type and screen tube. I also james inflammatory markers this morning. CRP and sed rate are both elevated. 09/18/2020 I am constructing a staged plan to wean patient to the absolute basic medications. The plan is as follows; I will taper Lamictal to off over the next 5 to 6 days I am instituting a trial of Keppra to cover his history of seizure disorder. We will start at 500 mg twice daily. His reports that the only reason they chose Lamictal was because his daughter was on the same medication and it controlled her seizures. I have discontinued the Risperdal completely If he is more interactive consider resuming physical therapy tomorrow Back pain-I have changed him to methadone 10 mg every 6 hours. This is still half the dose that he was on at home. Other considerations might be to reposition him intermittently for his back pain. He is also having Lidoderm patches placed on his low back Because of fluids and low albumin he has some swelling in his extremities. Consider applying compression sleeves and CHELSEA hose. Staph bacteremia with spinal hardware-the patient will need at least 4 weeks of therapy for the methicillin sensitive staph aureus. I have chosen cephalexin. I have asked for a PICC line to be placed. His sed rate and CRP should be monitored weekly along with a CMP, CBC and sed rate or CRP weekly. He should also be on probiotics while on antibiotics. If the sed rate/CRP are not improving we may need to extend the antibiotics. Hypokalemia-current IV fluids have dextrose and potassium. I will decrease the rate to 50 mL/h as his glucose is improving. We will need to monitor the electrolytes. Hypoglycemia-should improve as oral intake improves and then will be able to discontinue fluids altogether. Anemia-likely from illness although his polypharmacy could be contributing. Normal iron levels, normal folate and B12 is normal but in the lower range of normal. I will add B12 supplement. He tolerated the transfusion and is showing improving hemoglobin. 09/19/2020 He is very somnolent and difficult to awaken. Per nursing staff, he has been this way x2 days. Potentially related to methadone? Repeat labs in AM, including VBG. Back pain-I have changed methadone from 10 to 5 mg every 6 hours. He also has Lidoderm patches placed on his low back. DC IVF as he is developing edema. Staph bacteremia with spinal hardware-the patient will need at least 4 weeks of therapy for the methicillin sensitive staph aureus. Continue cephalexin. PICC placed 09/19/2020. His sed rate and CRP should be monitored weekly along with a CMP, CBC and sed rate or CRP weekly. He should also be on probiotics while on antibiotics. If the sed rate/CRP are not improving we may need to extend the antibiotics. Anemia of chronic disease No s/s of active bleeding. Normal iron levels, normal folate and B12 is normal but in the lower range of normal. I will add B12 supplement. He tolerated the transfusion and is showing improving hemoglobin. Unable to discuss plan of care today with his . Discussed with RN. Plan to speak with tomorrow AM. - Time Time Spent with patient: 35 or more minutes Anticipated Discharge Disposition: Care Home Facility Anticipated Discharge Timeframe: within 48 hours
[2020-09-19] MEDS: MELATONIN 5 MG TABLET PO SCH (21:41)
[2020-09-19] MEDS: PAROXETINE HCL 20 MG TABLET PO SCH (21:41)
[2020-09-19] MEDS: CYANOCOBALAMIN (VITAMIN B-12) 1,000 MCG TABLET PO SCH (21:41)
[2020-09-19] MEDS: NORMAL SALINE 10 ML SDV (SCHEDULED) IV SCH (21:45)
[2020-09-19] MEDS: PHARMACY COMMUNICATION ORDER MC SCH (22:00)
[2020-09-20] MEDS: CEFAZOLIN SODIUM 2 GM in DEXTROSE 5%-WATER 100 ML IV SCH ×3 (06:47→21:11)
[2020-09-20] MEDS: HEPARIN SOD (PORCINE) 5,000 UNIT/ML 1 ML VIAL SUBCUT SCH ×3 (06:48→21:12)
[2020-09-20] MEDS: PANTOPRAZOLE SODIUM 40 MG TABLET.DR PO SCH ×2 (06:48→17:05)
[2020-09-20 06:55] LABS: HEMATOCRIT 25.7 % (37.9-51.0); HEMOGLOBIN 8.8 g/dL (13.5-17.0); MEAN CORPUSCULAR HGB CONC 34.4 g/dL (32.0-36.0); MEAN CORPUSCULAR VOLUME 93 fl (80-97); PLATELET COUNT 278 10^3/uL (150-450); RED BLOOD COUNT 2.76 10^6/uL (4.35-5.55); VENOUS BLOOD BASE EXCESS 3.3 mmol/L; VENOUS BLOOD HCO3 28.2 mmol/L (20-32); VENOUS BLOOD PCO2 44.3 mmHg (35-63); VENOUS BLOOD PH 7.42 (7.30-7.42); WHITE BLOOD COUNT 4.1 10^3/uL (4.0-10.5)
[2020-09-20 07:31] LABS: BLOOD UREA NITROGEN 9 mg/dL (7-20); CARBON DIOXIDE 31 mmol/L (22-30); CHLORIDE 106 mmol/L (98-107); GLUCOSE 95 mg/dL (75-110); POTASSIUM 3.7 mmol/L (3.6-5.0)
[2020-09-20 07:46] LABS: ANION GAP 3 (5-19)
[2020-09-20] MEDS: INSULIN REG, HUMAN 100 UNIT/ML 3 ML VIAL (PYX) SUBCUT SCH ×4 (08:07→21:12)
[2020-09-20] MEDS: MAGNESIUM OXIDE 400 MG TABLET PO SCH ×3 (08:09→17:05)
[2020-09-20] MEDS: FLUTICASONE/VILANTEROL 200-25 MCG/DOSE IH SCH (09:32)
[2020-09-20] MEDS: LORATADINE 10 MG TABLET PO SCH (09:33)
[2020-09-20] MEDS: LEVETIRACETAM 500 MG TABLET PO SCH ×2 (09:33→21:12)
[2020-09-20] MEDS: LACTOBACILLUS ACIDOPHILUS 250 MG TAB PO SCH ×2 (09:33→17:05)
[2020-09-20] MEDS: NORMAL SALINE 10 ML SDV (SCHEDULED) IV SCH ×2 (09:34→21:14)
[2020-09-20] MEDS: OXCARBAZEPINE 150 MG TABLET PO SCH ×2 (09:35→17:05)
[2020-09-20] MEDS: LAMOTRIGINE 100 MG TABLET PO SCH ×2 (09:35→21:12)
[2020-09-20] MEDS: LIDOCAINE 5% (700 MG) TRANSDERMAL ADH..PATCH TP SCH (09:38)
[2020-09-20] MEDS: BENZTROPINE MESYLATE 1 MG TABLET PO SCH (09:40)
[2020-09-20] MEDS ORDERED: MAGNESIUM SULFATE 4 GM/100 ML RTUPB IV ONE (10:00)
[2020-09-20] MEDS ORDERED: METHADONE HCL 10 MG TABLET PO SCH ×2 (12:00→18:30)
--- NOTE | 2020-09-20 15:51 | RADIOLOGY REPORT (SQ) ---
EXAM DESCRIPTION: U/S RETROPERITON (RENAL/AORTA) IMAGES COMPLETED DATE/TIME: 09/20/2020 12:58 pm REASON FOR STUDY: kidney/bladder ultrasound to rule out obstruction COMPARISON: CT abdomen pelvis 09/05/2020 CT abdomen pelvis 10/27/2016 TECHNIQUE: Dynamic and static grayscale images acquired of the kidneys and bladder and recorded on P ACS. Additional selected color Doppler and spectral images recorded. LIMITATIONS: None. FINDINGS: RIGHT KIDNEY: Normal size. Normal echogenicity. No solid or suspicious masses. No hydronep hrosis. No calcifications. LEFT KIDNEY: Normal size. Normal echogenicity. No solid or suspicious masses. No hydronephrosis. No calcifications. BLADDER: No masses. OTHER FINDINGS: Echogenic liver from diffuse hepatocellular disease. Trace right upper quadrant free fluid IMPRESSION: NORMAL RENAL AND BLADDER ULTRASOUND. TECHNICAL DOCUMENTATION: JOB ID: [id number] 2010 [employer]- All Rights Reserved Reading location - IP/workstation name: [email or web address]
[2020-09-20] MEDS ORDERED: NORMAL SALINE 1000 ML 1,000 ML IV PRN (18:20)
--- NOTE | 2020-09-20 18:25 | PDOC PROGRESS REPORT ---
Subjective Progress Note for:: 09/20/20 Subjective:: NAEO. He was much more awake and interactive today. Walked the halls. Reason For Visit: DKA (DIABETIC KETOACIDOSES) Physical Exam Vital Signs: Temp Pulse Resp BP Pulse Ox 98.0 F 68 16 100/58 L 100 09/20/20 15:32 09/20/20 15:32 09/20/20 15:32 09/20/20 15:32 09/20/20 15:32 Intake & Output 09/19/20 09/20/20 09/21/20 06:59 06:59 06:59 Intake Total 2447 500 1780 Output Total 1470 1600 Balance 977 -1100 1780 Weight 115.7 kg 114.7 kg General appearance: PRESENT: no acute distress, cooperative Eye exam: ABSENT: scleral icterus Mouth exam: PRESENT: dry mucosa Throat exam: ABSENT: post pharyngeal erythema Neck exam: ABSENT: JVD Respiratory exam: PRESENT: clear to auscultation ariadne, unlabored Cardiovascular exam: PRESENT: RRR GI/Abdominal exam: PRESENT: soft. ABSENT: tenderness Musculoskeletal exam: PRESENT: ambulatory Neurological exam: PRESENT: alert, awake Psychiatric exam: PRESENT: appropriate affect Skin exam: ABSENT: rash Results Laboratory Results: 09/20/20 06:40 09/20/20 06:40 09/20/20 09/20/20 09/20/20 06:40 06:40 06:40 WBC 4.1 RBC 2.76 L Hgb 8.8 L Hct 25.7 L MCV 93 MCH 32.0 MCHC 34.4 RDW 18.0 H Plt Count 278 VBG pH 7.42 VBG pCO2 44.3 VBG HCO3 28.2 VBG Base Excess 3.3 Sodium 139.6 Potassium 3.7 Chloride 106 Carbon Dioxide 31 H Anion Gap 3 L BUN 9 Creatinine 1.20 Est GFR ( Amer) > 60 Glucose 95 Calcium 8.0 L Magnesium 1.6 09/05/20 09/05/20 09/05/20 10:29 15:30 15:30 Creatine Kinase 51 L Troponin I 0.015 0.012 09/05/20 09/05/20 09/06/20 23:01 23:01 03:26 Creatine Kinase 53 L 50 L Troponin I 0.014 09/06/20 03:26 Creatine Kinase Troponin I 0.013 Impressions: Abdomen/Pelvis CT 09/05/20 11:47 IMPRESSION: NO SIGNIFICANT OR ACUTE PROCESS IN THE ABDOMEN OR PELVIS. Chest X-Ray 09/09/20 00:00 IMPRESSION: NO ACUTE RADIOGRAPHIC FINDING IN THE CHEST. Lumbar Spine MRI 09/11/20 00:00 IMPRESSION: Limited study due to artifact from the indwelling hardware. Follow-up studies are recommended if clinical symptoms persist. Correlation with sed rate and other laboratory values is recommended. No focal epidural fluid collections are identified at this time. No abnormal enhancement is appreciated. There is moderate to severe central stenosis at L4-L5 with bilateral foraminal stenosis. This is significantly progressed when compared to prior MRI. Venous Doppler Study 09/13/20 00:00 IMPRESSION: Focal acute superficial venous thrombus in the cephalic vein at the right antecubital fossa. No DVT. Head CT 09/14/20 00:00 IMPRESSION: 1. No acute intracranial abnormality identified. This exam was performed according to our departmental dose-optimization program, which includes automated exposure control, adjustment of the mA and/or kV according to patient size and/or use of iterative reconstruction technique. PICC Line Insertion 09/19/20 00:00 IMPRESSION: SUCCESSFUL PLACEMENT OF A 5 FR DUAL LUMEN 39 CM PICC IN THE LEFT BASILIC VEIN. Renal Ultrasound 09/20/20 00:00 IMPRESSION: NORMAL RENAL AND BLADDER ULTRASOUND. Assessment and Plan - Diagnosis (1) Anemia of chronic disease Is this a current diagnosis for this admission?: Yes (2) Acute kidney injury Is this a current diagnosis for this admission?: Yes (3) Rgyba-2-xompgqjwshj deficiency Is this a current diagnosis for this admission?: Yes (4) Bipolar 1 disorder Is this a current diagnosis for this admission?: Yes (5) Chronic back pain greater than 3 months duration Is this a current diagnosis for this admission?: Yes (6) Chronically on opiate therapy Is this a current diagnosis for this admission?: Yes (7) DKA (diabetic ketoacidoses) Qualifiers: Diabetes mellitus type: type 2 Diabetes mellitus complication detail: without coma Qualified Code(s): E11.10 - Type 2 diabetes mellitus with ketoacidosis without coma Is this a current diagnosis for this admission?: Yes (8) Hypokalemia Is this a current diagnosis for this admission?: Yes (9) MSSA bacteremia Is this a current diagnosis for this admission?: Yes (10) Type 2 diabetes mellitus Qualifiers: Diabetes mellitus watermelon inspector insulin use: without watermelon inspector use Diabetes mellitus complication status: without complication Qualified Code(s): E11.9 - Type 2 diabetes mellitus without complications Is this a current diagnosis for this admission?: Yes - Plan Summary Summary: 09/16/2020 Diabetic ketoacidosis-resolved Diabetes mellitus type 2-actually on dextrose solution due to hypoglycemia. Continue Accu-Cheks. Should improve with consistent diet Bacteremia-methicillin sensitive staph aureus. In light of the hardware in his back he will need 4 weeks of antibiotics from the date of the first negative blood culture. This will require a PICC line. Reviewed Dr. Farris's infectious disease note as well. Bipolar disorder-discussion with reveals that he was not on many of his medications for the 2 to 3 weeks prior to hospitalization. We will gradually introduce medications. We will recheck laboratory studies tomorrow. Lengthy discussion with the patient's regarding his current status and treatment plan. 09/17/2020 Continue dextrose solution at this point. Once the patient is more awake and alert with good oral intake we will discontinue the fluid. Now on Ancef for the anticipated 4 weeks of therapy. We will order a PICC line for tomorrow. I reviewed today status with the patient's . We reviewed previous medicati on changes made yesterday. We also planned medication changes for today. This will include slowly tapering off the Risperdal. We will decrease to 1 mg each morning. We will continue the Trileptal as is. I already decreased the Lamictal to 150 mg twice daily. We will slowly taper as much medication as possible. Tomorrow, if the patient is able to interact and follow some commands I will reengage physical therapy. The patient's is acceptable the plan changes. Anemia-the patient may likely have iron deficiency anemia. His hemoglobin has been below 8 on 2 consecutive CBCs. I explained the benefits of transfusing the patient versus risk. I explained to her that we will transfuse 1 unit and check for affect. I have also asked that they draw anemia studies when they draw the type and screen tube. I also james inflammatory markers this morning. CRP and sed rate are both elevated. 09/18/2020 I am constructing a staged plan to wean patient to the absolute basic medications. The plan is as follows; I will taper Lamictal to off over the next 5 to 6 days I am instituting a trial of Keppra to cover his history of seizure disorder. We will start at 500 mg twice daily. His reports that the only reason they chose Lamictal was because his daughter was on the same medication and it controlled her seizures. I have discontinued the Risperdal completely If he is more interactive consider resuming physical therapy tomorrow Back pain-I have changed him to methadone 10 mg every 6 hours. This is still half the dose that he was on at home. Other considerations might be to r eposition him intermittently for his back pain. He is also having Lidoderm patches placed on his low back Because of fluids and low albumin he has some swelling in his extremities. Consider applying compression sleeves and CHELSEA hose. Staph bacteremia with spinal hardware-the patient will need at least 4 weeks of therapy for the methicillin sensitive staph aureus. I have chosen cephalexin. I have asked for a PICC line to be placed. His sed rate and CRP should be monitored weekly along with a CMP, CBC and sed rate or CRP weekly. He should also be on probiotics while on antibiotics. If the sed rate/CRP are not improving we may need to extend the antibiotics. Hypokalemia-current IV fluids have dextrose and potassium. I will decrease the rate to 50 mL/h as his glucose is improving. We will need to monitor the electrolytes. Hypoglycemia-should improve as oral intake improves and then will be able to discontinue fluids altogether. Anemia-likely from illness although his polypharmacy could be contributing. Normal iron levels, normal folate and B12 is normal but in the lower range of normal. I will add B12 supplement. He tolerated the transfusion and is showing improving hemoglobin. 09/19/2020 He is very somnolent and difficult to awaken. Per nursing staff, he has been this way x2 days. Potentially related to methadone? Repeat labs in AM, including VBG. Back pain-I have changed methadone from 10 to 5 mg every 6 hours. He also has Lidoderm patches placed on his low back. DC IVF as he is developing edema. Staph bacteremia with spinal hardware-the patient will need at least 4 weeks of therapy for the methicillin sensitive staph aureus. Continue cephalexin. PICC placed 09/19/2020. His sed rate and CRP should be monitored weekly along with a CMP, CBC and sed rate or CRP weekly. He should also be on probiotics while on antibiotics. If the sed rate/CRP are not improving we may need to extend the antibiotics. Anemia of chronic disease No s/s of active bleeding. Normal iron levels, normal folate and B12 is normal but in the lower range of normal. I will add B12 supplement. He tolerated the transfusion and is showing improving hemoglobin. Unable to discuss plan of care today with his . Discussed with RN. Plan to speak with tomorrow AM. 09/20/2020 He is much more awake and interactive today after decreasing methadone dosage. Back pain-I have changed methadone from 10 to 5 mg Q6H PRN. He also has Lidoderm patches placed on his low back. DIONE-start IVF hydration and encourage PO intake. Recheck BMP in AM. MSSA bacteremia with spinal hardware-the patient will need at least 4 weeks of therapy with cephalexin. PICC placed 09/19/2020. He will need CMP, CBC, ESR, CRP weekly. Anemia of chronic disease-No s/s of active bleeding. Normal iron levels, normal folate and B12 is normal but in the lower range of normal. I will add B12 supplement. He tolerated the transfusion and is showing improving hemoglobin. Dispo: awaiting [facility] to be set up as he will require home infusion therapy - Time Time Spent with patient: 35 or more minutes Anticipated Discharge Disposition: Home with Home Health Anticipated Discharge Timeframe: within 72 hours
[2020-09-20] MEDS ORDERED: POTASSIUM CHLORIDE 10 MEQ TABLET.ER PO ONE (19:00)
[2020-09-20] MEDS: NORMAL SALINE 1000 ML 1,000 ML IV ONE ×2 (20:14→20:40)
[2020-09-20] MEDS: CYANOCOBALAMIN (VITAMIN B-12) 1,000 MCG TABLET PO SCH (21:12)
[2020-09-20] MEDS: PAROXETINE HCL 20 MG TABLET PO SCH (21:12)
[2020-09-20] MEDS: MELATONIN 5 MG TABLET PO SCH (21:13)
[2020-09-20] MEDS: PHARMACY COMMUNICATION ORDER MC SCH (21:29)
[2020-09-21] MEDS: HEPARIN SOD (PORCINE) 5,000 UNIT/ML 1 ML VIAL SUBCUT SCH ×3 (06:29→21:19)
[2020-09-21] MEDS: PANTOPRAZOLE SODIUM 40 MG TABLET.DR PO SCH ×2 (06:29→16:35)
[2020-09-21] MEDS: CEFAZOLIN SODIUM 2 GM in DEXTROSE 5%-WATER 100 ML IV SCH ×3 (06:30→21:18)
[2020-09-21] MEDS: METHADONE HCL 10 MG TABLET PO PRN ×2 (06:36→18:31)
[2020-09-21 07:28] LABS: BLOOD UREA NITROGEN 9 mg/dL (7-20); CHLORIDE 102 mmol/L (98-107); GLUCOSE 85 mg/dL (75-110); POTASSIUM 4.2 mmol/L (3.6-5.0)
[2020-09-21 07:33] LABS: ANION GAP 3 (5-19); CARBON DIOXIDE 31 mmol/L (22-30)
[2020-09-21] MEDS: INSULIN REG, HUMAN 100 UNIT/ML 3 ML VIAL (PYX) SUBCUT SCH ×4 (07:46→22:29)
[2020-09-21] MEDS: MAGNESIUM OXIDE 400 MG TABLET PO SCH ×3 (07:59→16:35)
[2020-09-21] MEDS: OXCARBAZEPINE 150 MG TABLET PO SCH ×2 (09:45→17:04)
[2020-09-21] MEDS: BENZTROPINE MESYLATE 1 MG TABLET PO SCH (09:45)
[2020-09-21] MEDS: LACTOBACILLUS ACIDOPHILUS 250 MG TAB PO SCH ×2 (09:46→17:04)
[2020-09-21] MEDS: LAMOTRIGINE 100 MG TABLET PO SCH ×2 (09:46→21:18)
[2020-09-21] MEDS: FLUTICASONE/VILANTEROL 200-25 MCG/DOSE IH SCH (09:46)
[2020-09-21] MEDS: LORATADINE 10 MG TABLET PO SCH (09:46)
[2020-09-21] MEDS: LEVETIRACETAM 500 MG TABLET PO SCH ×2 (09:48→21:17)
[2020-09-21] MEDS: LIDOCAINE 5% (700 MG) TRANSDERMAL ADH..PATCH TP SCH (09:50)
[2020-09-21] MEDS: NORMAL SALINE 10 ML SDV (AFTER EACH USE) IV PRN (09:51)
[2020-09-21] MEDS: NORMAL SALINE 10 ML SDV (SCHEDULED) IV SCH ×2 (11:45→21:19)
--- NOTE | 2020-09-21 17:54 | PDOC PROGRESS REPORT ---
Subjective Progress Note for:: 09/21/20 Subjective:: NAEO. Much more awake and interactive today. Reason For Visit: DKA (DIABETIC KETOACIDOSES) Physical Exam Vital Signs: Temp Pulse Resp BP Pulse Ox 98.4 F 73 18 120/74 99 09/21/20 15:09 09/21/20 15:09 09/21/20 15:09 09/21/20 15:09 09/21/20 15:09 Intake & Output 09/20/20 09/21/20 09/22/20 06:59 06:59 06:59 Intake Total 500 1979 Output Total 1600 Balance -1100 1979 Weight 114.7 kg 114.7 kg 114.7 kg General appearance: PRESENT: no acute distress Eye exam: ABSENT: scleral icterus Mouth exam: PRESENT: moist Throat exam: ABSENT: post pharyngeal erythema Neck exam: ABSENT: JVD Respiratory exam: PRESENT: clear to auscultation ariadne, unlabored GI/Abdominal exam: PRESENT: normal bowel sounds, soft Gentrourinary exam: ABSENT: indwelling catheter Extremities exam: PRESENT: +1 edema Neurological exam: PRESENT: alert, awake, oriented to person, oriented to place, oriented to time, oriented to situation Psychiatric exam: PRESENT: appropriate affect Focused psych exam: ABSENT: euphoric, pressured speech Skin exam: ABSENT: rash Results Laboratory Results: 09/20/20 06:40 09/21/20 06:10 09/21/20 06:10 Sodium 135.7 L Potassium 4.2 Chloride 102 Carbon Dioxide 31 H Anion Gap 3 L BUN 9 Creatinine 1.11 Est GFR ( Amer) > 60 Glucose 85 Calcium 8.0 L Magnesium 1.9 09/05/20 09/05/20 09/05/20 10:29 15:30 15:30 Creatine Kinase 51 L Troponin I 0.015 0.012 09/05/20 09/05/20 09/06/20 23:01 23:01 03:26 Creatine Kinase 53 L 50 L Troponin I 0.014 09/06/20 03:26 Creatine Kinase Troponin I 0.013 Impressions: Abdomen/Pelvis CT 09/05/20 11:47 IMPRESSION: NO SIGNIFICANT OR ACUTE PROCESS IN THE ABDOMEN OR PELVIS. Chest X-Ray 09/09/20 00:00 IMPRESSION: NO ACUTE RADIOGRAPHIC FINDING IN THE CHEST. Lumbar Spine MRI 09/11/20 00:00 IMPRESSION: Limited study due to artifact from the indwelling hardware. Follow-up studies are recommended if clinical symptoms persist. Correlation with sed rate and other laboratory values is recommended. No focal epidural fluid collections are identified at this time. No abnormal enhancement is appreciated. There is moderate to severe central stenosis at L4-L5 with bilateral foraminal stenosis. This is significantly progressed when compared to prior MRI. Venous Doppler Study 09/13/20 00:00 IMPRESSION: Focal acute superficial venous thrombus in the cephalic vein at the right antecubital fossa. No DVT. Head CT 09/14/20 00:00 IMPRESSION: 1. No acute intracranial abnormality identified. This exam was performed according to our departmental dose-optimization program, which includes automated exposure control, adjustment of the mA and/or kV according to patient size and/or use of iterative reconstruction technique. PICC Line Insertion 09/19/20 00:00 IMPRESSION: SUCCESSFUL PLACEMENT OF A 5 FR DUAL LUMEN 39 CM PICC IN THE LEFT BASILIC VEIN. Renal Ultrasound 09/20/20 00:00 IMPRESSION: NORMAL RENAL AND BLADDER ULTRASOUND. Assessment and Plan - Diagnosis (1) Anemia of chronic disease Is this a current diagnosis for this admission?: Yes (2) Acute kidney injury Is this a current diagnosis for this admission?: Yes (3) Ksynv-[id number]-hlcwxiuutep deficiency Is this a current diagnosis for this admission?: Yes (4) Bipolar 1 disorder Is this a current diagnosis for this admission?: Yes (5) Chronic back pain greater than 3 months duration Is this a current diagnosis for this admission?: Yes (6) Chronically on opiate therapy Is this a current diagnosis for this admission?: Yes (7) DKA (diabetic ketoacidoses) Qualifiers: Diabetes mellitus type: type 2 Diabetes mellitus complication detail: without coma Qualified Code(s): E11.10 - Type 2 diabetes mellitus with ketoacidosis without coma Is this a current diagnosis for this admission?: Yes (8) Hypokalemia Is this a current diagnosis for this admission?: Yes (9) MSSA bacteremia Is this a current diagnosis for this admission?: Yes (10) Type 2 diabetes mellitus Qualifiers: Diabetes mellitus dedicated intermodal truck driver insulin use: without dedicated intermodal truck driver use Diabetes mellitus complication status: without complication Qualified Code(s): E11.9 - Type 2 diabetes mellitus without complications Is this a current diagnosis for this admission?: Yes - Plan Summary Summary: 09/16/2020 Diabetic ketoacidosis-resolved Diabetes mellitus type 2-actually on dextrose solution due to hypoglycemia. C ontinue Accu-Cheks. Should improve with consistent diet Bacteremia-methicillin sensitive staph aureus. In light of the hardware in his back he will need 4 weeks of antibiotics from the date of the first negative blood culture. This will require a PICC line. Reviewed Dr. Farris's infectious disease note as well. Bipolar disorder-discussion with reveals that he was not on many of his medications for the 2 to 3 weeks prior to hospitalization. We will gradually introduce medications. We will recheck laboratory studies tomorrow. Lengthy discussion with the patient's regarding his current status and treatment plan. 09/17/2020 Continue dextrose solution at this point. Once the patient is more awake and alert with good oral intake we will discontinue the fluid. Now on Ancef for the anticipated 4 weeks of therapy. We will order a PICC line for tomorrow. I reviewed today status with the patient's . We reviewed previous medication changes made yesterday. We also planned medication changes for today. This will include slowly tapering off the Risperdal. We will decrease t o 1 mg each morning. We will continue the Trileptal as is. I already decreased the Lamictal to 150 mg twice daily. We will slowly taper as much medication as possible. Tomorrow, if the patient is able to interact and follow some commands I will reengage physical therapy. The patient's is acceptable the plan changes. Anemia-the patient may likely have iron deficiency anemia. His hemoglobin has been below 8 on 2 consecutive CBCs. I explained the benefits of transfusing the patient versus risk. I explained to her that we will transfuse 1 unit and check for affect. I have also asked that they draw anemia studies when they draw the type and screen tube. I also james inflammatory markers this morning. CRP and sed rate are both elevated. 09/18/2020 I am constructing a staged plan to wean patient to the absolute basic medications. The plan is as follows; I will taper Lamictal to off over the next 5 to 6 days I am instituting a trial of Keppra to cover his history of seizure disorder. We will start at 500 mg twice daily. His reports that the only reason they chose Lamictal was because his daughter was on the same medication and it controlled her seizures. I have discontinued the Risperdal completely If he is more interactive consider resuming physical therapy tomorrow Back pain-I have changed him to methadone 10 mg every 6 hours. This is still half the dose that he was on at home. Other considerations might be to reposition him intermittently for his back pain. He is also having Lidoderm patches placed on his low back Because of fluids and low albumin he has some swelling in his extremities. Consider applying compression sleeves and CHELSEA hose. Staph bacteremia with spinal hardware-the patient will need at least 4 weeks of therapy for the methicillin sensitive staph aureus. I have chosen cephalexin. I have asked for a PICC line to be placed. His sed rate and CRP should be monitored weekly along with a CMP, CBC and sed rate or CRP weekly. He should also be on probiotics while on antibiotics. If the sed rate/CRP are not improving we may need to extend the antibiotics. Hypokalemia-current IV fluids have dextrose and potassium. I will decrease the rate to 50 mL/h as his glucose is improving. We will need to monitor the electrolytes. Hypoglycemia-should improve as oral intake improves and then will be able to discontinue fluids altogether. Anemia-likely from illness although his polypharmacy could be contributing. Normal iron levels, normal folate and B12 is normal but in the lower range of normal. I will add B12 supplement. He tolerated the transfusion and is showing improving hemoglobin. 09/19/2020 He is very somnolent and difficult to awaken. Per nursing staff, he has been this way x2 days. Potentially related to methadone? Repeat labs in AM, including VBG. Back pain-I have changed methadone from 10 to 5 mg every 6 hours. He also has Lidoderm patches placed on his low back. DC IVF as he is developing edema. Staph bacteremia with spinal hardware-the patient will need at least 4 weeks of therapy for the methicillin sensitive staph aureus. Continue cephalexin. PICC placed 09/19/2020. His sed rate and CRP should be monitored weekly along with a CMP, CBC and sed rate or CRP weekly. He should also be on probiotics while on antibiotics. If the sed rate/CRP are not improving we may need to extend the antibiotics. Anemia of chronic disease No s/s of active bleeding. Normal iron levels, normal folate and B12 is normal but in the lower range of normal. I will add B12 supplement. He tolerated the transfusion and is showing improving hemoglobin. Unable to discuss plan of care today with his . Discussed with RN. Plan to speak with tomorrow AM. 09/20/2020 He is much more awake and interactive today after decreasing methadone dosage. Back pain-I have changed methadone from 10 to 5 mg Q6H PRN. He also has Lidoderm patches placed on his low back. DIONE-start IVF hydration and encourage PO intake. Recheck BMP in AM. MSSA bacteremia with spinal hardware-the patient will need at least 4 weeks of therapy with cephalexin. PICC placed 09/19/2020. He will need CMP, CBC, ESR, CRP weekly. Anemia of chronic disease-No s/s of active bleeding. Normal iron levels, normal folate and B12 is normal but in the lower range of normal. I will add B12 supplement. He tolerated the transfusion and is showing improving hemoglobin. 09/20/2020 He is much more awake and interactive today after decreasing methadone dosage. Back pain-I have changed methadone from 10 to 5 mg Q6H PRN. He also has Lidoderm patches placed on his low back. DIONE-improving with IVF. MSSA bacteremia with spinal hardware-the patient will need at least 4 weeks of therapy with cephalexin. PICC placed 09/19/2020. He will need CMP, CBC, ESR, CRP weekly. Anemia of chronic disease-No s/s of active bleeding. Normal iron levels, normal folate and B12 is normal but in the lower range of normal. I will add B12 supplement. He tolerated the transfusion and is showing improving hemoglobin. Dispo: awaiting [facility] to be set up as he will require home infusion therapy. Nursing staff are actively teaching patient/ PICC line care. - Time Time Spent with patient: 35 or more minutes Anticipated Discharge Disposition: Home with Home Health Anticipated Discharge Timeframe: within 72 hours
[2020-09-21] MEDS: MELATONIN 5 MG TABLET PO SCH (21:17)
[2020-09-21] MEDS: CYANOCOBALAMIN (VITAMIN B-12) 1,000 MCG TABLET PO SCH (21:18)
[2020-09-21] MEDS: PAROXETINE HCL 20 MG TABLET PO SCH (21:18)
[2020-09-21] MEDS: PHARMACY COMMUNICATION ORDER MC SCH (21:30)
[2020-09-22] MEDS: METHADONE HCL 10 MG TABLET PO PRN ×3 (04:47→17:15)
[2020-09-22] MEDS: CEFAZOLIN SODIUM 2 GM in DEXTROSE 5%-WATER 100 ML IV SCH ×3 (05:47→21:33)
[2020-09-22] MEDS: PANTOPRAZOLE SODIUM 40 MG TABLET.DR PO SCH ×2 (05:47→16:31)
[2020-09-22] MEDS: HEPARIN SOD (PORCINE) 5,000 UNIT/ML 1 ML VIAL SUBCUT SCH ×3 (05:47→21:32)
[2020-09-22] MEDS: INSULIN REG, HUMAN 100 UNIT/ML 3 ML VIAL (PYX) SUBCUT SCH ×4 (07:37→21:32)
[2020-09-22] MEDS: MAGNESIUM OXIDE 400 MG TABLET PO SCH ×3 (08:46→16:31)
[2020-09-22] MEDS: FLUTICASONE/VILANTEROL 200-25 MCG/DOSE IH SCH (10:43)
[2020-09-22] MEDS: LACTOBACILLUS ACIDOPHILUS 250 MG TAB PO SCH ×2 (10:43→17:07)
[2020-09-22] MEDS: LEVETIRACETAM 500 MG TABLET PO SCH (10:44)
[2020-09-22] MEDS: LAMOTRIGINE 100 MG TABLET PO SCH ×2 (10:44→21:34)
[2020-09-22] MEDS: LORATADINE 10 MG TABLET PO SCH (10:44)
[2020-09-22] MEDS: BENZTROPINE MESYLATE 1 MG TABLET PO SCH (10:44)
[2020-09-22] MEDS: LIDOCAINE 5% (700 MG) TRANSDERMAL ADH..PATCH TP SCH (10:45)
[2020-09-22] MEDS: NORMAL SALINE 10 ML SDV (SCHEDULED) IV SCH ×2 (10:47→21:33)
[2020-09-22] MEDS: OXCARBAZEPINE 150 MG TABLET PO SCH ×2 (10:47→17:07)
[2020-09-22 12:48] LABS: ANION GAP 6 (5-19); BLOOD UREA NITROGEN 8 mg/dL (7-20); CALCIUM 8.2 mg/dL (8.4-10.2); CARBON DIOXIDE 30 mmol/L (22-30); CHLORIDE 99 mmol/L (98-107); GLUCOSE 119 mg/dL (75-110); POTASSIUM 3.8 mmol/L (3.6-5.0)
--- NOTE | 2020-09-22 15:17 | PDOC PROGRESS REPORT ---
Subjective Progress Note for:: 09/22/20 Subjective:: NAEO. He remains awake, alert, and much more interactive, similar to yesterday. He has been walking, showering daily, and awake much of the day. Reason For Visit: DKA (DIABETIC KETOACIDOSES) Physical Exam Vital Signs: Temp Pulse Resp BP Pulse Ox 97.9 F 72 18 122/70 99 09/22/20 11:23 09/22/20 11:23 09/22/20 11:23 09/22/20 11:23 09/22/20 11:23 Intake & Output 09/21/20 09/22/20 09/23/20 06:59 06:59 06:59 Intake Total 1980 Balance 1979 Weight 114.7 kg 114.7 kg General appearance: PRESENT: no acute distress Head exam: PRESENT: atraumatic Eye exam: ABSENT: scleral icterus Mouth exam: PRESENT: moist Throat exam: ABSENT: post pharyngeal erythema Neck exam: ABSENT: JVD Respiratory exam: PRESENT: clear to auscultation ariadne, unlabored Cardiovascular exam: PRESENT: RRR GI/Abdominal exam: PRESENT: normal bowel sounds, soft Extremities exam: PRESENT: pedal edema Neurological exam: PRESENT: alert, awake Psychiatric exam: PRESENT: appropriate affect Skin exam: ABSENT: jaundice, rash Results Laboratory Results: 09/20/20 06:40 09/22/20 12:20 09/22/20 12:20 Sodium 135.3 L Potassium 3.8 Chloride 99 Carbon Dioxide 30 Anion Gap 6 BUN 8 Creatinine 1.08 Est GFR ( Amer) > 60 Glucose 119 H Calcium 8.2 L Magnesium 1.5 L 09/05/20 09/05/20 09/05/20 10:29 15:30 15:30 Creatine Kinase 51 L Troponin I 0.015 0.012 09/05/20 09/05/20 09/06/20 23:01 23:01 03:26 Creatine Kinase 53 L 50 L Troponin I 0.014 09/06/20 03:26 Creatine Kinase Troponin I 0.013 Impressions: Abdomen/Pelvis CT 09/05/20 11:47 IMPRESSION: NO SIGNIFICANT OR ACUTE PROCESS IN THE ABDOMEN OR PELVIS. Chest X-Ray 09/09/20 00:00 IMPRESSION: NO ACUTE RADIOGRAPHIC FINDING IN THE CHEST. Lumbar Spine MRI 09/11/20 00:00 IMPRESSION: Limited study due to artifact from the indwelling hardware. Foll ow-up studies are recommended if clinical symptoms persist. Correlation with sed rate and other laboratory values is recommended. No focal epidural fluid collections are identified at this time. No abnormal enhancement is appreciated. There is moderate to severe central stenosis at L4-L5 with bilateral foraminal stenosis. This is significantly progressed when compared to prior MRI. Venous Doppler Study 09/13/20 00:00 IMPRESSION: Focal acute superficial venous thrombus in the cephalic vein at the right antecubital fossa. No DVT. Head CT 09/14/20 00:00 IMPRESSION: 1. No acute intracranial abnormality identified. This exam was performed according to our departmental dose-optimization program, which includes automated exposure control, adjustment of the mA and/or kV according to patient size and/or use of iterative reconstruction technique. PICC Line Insertion 09/19/20 00:00 IMPRESSION: SUCCESSFUL PLACEMENT OF A 5 FR DUAL LUMEN 39 CM PICC IN THE LEFT BASILIC VEIN. Renal Ultrasound 09/20/20 00:00 IMPRESSION: NORMAL RENAL AND BLADDER ULTRASOUND. Assessment and Plan - Diagnosis (1) Anemia of chronic disease Is this a current diagnosis for this admission?: Yes (2) Acute kidney injury Is this a current diagnosis for this admission?: Yes (3) Dcgnq-1-eyqlaazsogg deficiency Is this a current diagnosis for this admission?: Yes (4) Bipolar 1 disorder Is this a current diagnosis for this admission?: Yes (5) Chronic back pain greater than 3 months duration Is this a current diagnosis for this admission?: Yes (6) Chronically on opiate therapy Is this a current diagnosis for this admission?: Yes (7) DKA (diabetic ketoacidoses) Qualifiers: Diabetes mellitus type: type 2 Diabetes mellitus complication detail: without coma Qualified Code(s): E11.10 - Type 2 diabetes mellitus with ketoacidosis without coma Is this a current diagnosis for this admission?: Yes (8) Hypokalemia Is this a current diagnosis for this admission?: Yes (9) MSSA bacteremia Is this a current diagnosis for this admission?: Yes (10) Type 2 diabetes mellitus Qualifiers: Diabetes mellitus penitentiary insulin use: without spot checker use Diabetes mellitus complication status: without complication Qualified Code(s): E11.9 - Type 2 diabetes mellitus without complications Is this a current diagnosis for this admission?: Yes - Plan Summary Summary: Mr. Gray Galvez is a 49-year-old man with DM2 and chronic back pain who initially presented on 09/05/[address] scan of abdomen and pelvis was unrevealing. He was admitted to the ICU and placed on IVF and insulin ggt; anion gap closed on 09/07 and he was transferred out of the ICU. He had a fever on 09/09 and blood cultures were drawn, showing MSSA from both sets of cultures. He has hardware in his back and was complaining of back pain (he does have chronic back pain for which he is on methadone). MRI of the lumbar spine showed worsening chronic changes with moderate to severe stenosis, but no epidural fluid collections. MSSA bacteremia in the setting of spinal hardware: Duration of therapy will be at least 4 weeks from negative blood cultures considering that he has orthopedic hardware. If echocardiogram is positive, duration of therapy will be extended to 6 weeks. No evidence of discitis or osteomyelitis per MRI. -ID consulted -continue Cefazolin 2g IV Q8H (end date: 10/11/2020) -PICC placed 09/19/2020 -check weekly CMP, CBC, ESR, CRP -remove PICC line after completion of antibiotics Anemia of chronic disease: he has no signs or symptoms of active bleeding. He has normal iron, folate and B12. He was transfused 1 unit pRBCs this admission and has H/H has remained stable ever since. DIONE: due to dehydration and resolved with IVF. Hypomagnesemia: replete with IV and PO Mg. Hypersomnolence: he is much more awake and interactive after decreasing his methadone dosage. Back pain is controlled on current regimen. Chronic Low Back Pain -continue methadone 5 mg PO Q6H PRN -also has Lidoderm patches, Tylenol and Flexeril available DM2 (HbA1c 13.4%) -blood sugars are well controlled on SSI -restart metformin on discharge Bipolar Disorder -continue Paxil -restart home Risperdal at 1 mg PO HS Seizure Disorder -continue Trileptal, Lamictal at current doses -DC Keppra (this was not a home medication) Dispo: awaiting [facility] to be set up as he will require home infusion therapy. Nursing staff are actively teaching patient/ PICC line care. - Time Time Spent with patient: 35 or more minutes Anticipated Discharge Disposition: Home with Home Health Anticipated Discharge Timeframe: within 48 hours
[2020-09-22] MEDS ORDERED: MAGNESIUM SULFATE 4 GM/100 ML RTUPB IV ONE (15:30)
[2020-09-22] MEDS: MELATONIN 5 MG TABLET PO SCH (21:33)
[2020-09-22] MEDS: ACETAMINOPHEN 325 MG TABLET PO SCH (21:34)
[2020-09-22] MEDS: PAROXETINE HCL 20 MG TABLET PO SCH (21:35)
[2020-09-22] MEDS: CYANOCOBALAMIN (VITAMIN B-12) 1,000 MCG TABLET PO SCH (21:35)
[2020-09-22] MEDS: CYCLOBENZAPRINE HCL 10 MG TABLET PO PRN (21:40)
[2020-09-22] MEDS: PHARMACY COMMUNICATION ORDER MC SCH (21:44)
[2020-09-22] MEDS ORDERED: RISPERIDONE 1 MG TABLET PO SCH (22:00)
[2020-09-23] MEDS: METHADONE HCL 10 MG TABLET PO PRN ×4 (03:07→23:50)
[2020-09-23] MEDS: CEFAZOLIN SODIUM 2 GM in DEXTROSE 5%-WATER 100 ML IV SCH ×2 (06:12→21:45)
[2020-09-23] MEDS: PANTOPRAZOLE SODIUM 40 MG TABLET.DR PO SCH ×2 (06:13→17:37)
[2020-09-23] MEDS: CYCLOBENZAPRINE HCL 10 MG TABLET PO PRN ×3 (06:13→23:51)
[2020-09-23] MEDS: ACETAMINOPHEN 325 MG TABLET PO SCH ×3 (06:13→21:33)
[2020-09-23] MEDS: HEPARIN SOD (PORCINE) 5,000 UNIT/ML 1 ML VIAL SUBCUT SCH ×3 (06:15→21:32)
[2020-09-23 06:48] LABS: HEMOGLOBIN 9.2 g/dL (13.5-17.0); MEAN CORPUSCULAR HEMOGLOBIN 32.7 pg (27.0-33.4); MEAN CORPUSCULAR HGB CONC 35.5 g/dL (32.0-36.0); MEAN CORPUSCULAR VOLUME 92 fl (80-97); PLATELET COUNT 268 10^3/uL (150-450); RED BLOOD COUNT 2.82 10^6/uL (4.35-5.55); WHITE BLOOD COUNT 3.5 10^3/uL (4.0-10.5)
[2020-09-23 07:09] LABS: ANION GAP 5 (5-19); BLOOD UREA NITROGEN 7 mg/dL (7-20); C-REACTIVE PROTEIN 23.8 mg/L (<10.0); CALCIUM 8.5 mg/dL (8.4-10.2); CARBON DIOXIDE 32 mmol/L (22-30); CHLORIDE 102 mmol/L (98-107); GLUCOSE 87 mg/dL (75-110); POTASSIUM 4.1 mmol/L (3.6-5.0)
[2020-09-23] MEDS: INSULIN REG, HUMAN 100 UNIT/ML 3 ML VIAL (PYX) SUBCUT SCH ×4 (07:55→21:33)
[2020-09-23] MEDS: MAGNESIUM OXIDE 400 MG TABLET PO SCH ×3 (07:59→17:37)
[2020-09-23 08:16] LABS: ERYTHROCYTE SEDIMENTATION RATE 73 mm/hr (0-15)
[2020-09-23] MEDS: OXCARBAZEPINE 150 MG TABLET PO SCH ×2 (10:23→17:37)
[2020-09-23] MEDS: LACTOBACILLUS ACIDOPHILUS 250 MG TAB PO SCH ×2 (10:24→17:37)
[2020-09-23] MEDS: LORATADINE 10 MG TABLET PO SCH (10:24)
[2020-09-23] MEDS: LAMOTRIGINE 100 MG TABLET PO SCH ×2 (10:24→21:33)
[2020-09-23] MEDS: LIDOCAINE 5% (700 MG) TRANSDERMAL ADH..PATCH TP SCH (11:45)
[2020-09-23] MEDS: FLUTICASONE/VILANTEROL 200-25 MCG/DOSE IH SCH (11:53)
[2020-09-23] MEDS: NORMAL SALINE 10 ML SDV (SCHEDULED) IV SCH ×2 (11:53→21:34)
--- NOTE | 2020-09-23 14:44 | PDOC PROGRESS REPORT ---
Subjective Progress Note for:: 09/23/20 Subjective:: NAEO Reason For Visit: DKA (DIABETIC KETOACIDOSES) Physical Exam Vital Signs: Temp Pulse Resp BP Pulse Ox 97.8 F 69 17 140/85 H 95 09/23/20 09:19 09/23/20 07:15 09/23/20 07:15 09/23/20 07:15 09/23/20 07:15 Intake & Output 09/22/20 09/23/20 09/24/20 06:59 06:59 06:59 Intake Total 500 Output Total 260 240 Balance 240 -240 Weight 114.7 kg 117.7 kg General appearance: PRESENT: no acute distress Eye exam: ABSENT: scleral icterus Mouth exam: PRESENT: moist Throat exam: ABSENT: post pharyngeal erythema Neck exam: ABSENT: JVD Respiratory exam: PRESENT: clear to auscultation ariadne Cardiovascular exam: PRESENT: RRR GI/Abdominal exam: PRESENT: normal bowel sounds, soft. ABSENT: tenderness Extremities exam: PRESENT: pedal edema Musculoskeletal exam: PRESENT: ambulatory Neurological exam: PRESENT: alert, awake Psychiatric exam: PRESENT: appropriate affect Skin exam: ABSENT: rash Results Laboratory Results: 09/23/20 06:15 09/23/20 06:15 09/23/20 09/23/20 06:15 06:15 WBC 3.5 L RBC 2.82 L Hgb 9.2 L Hct 26.0 L MCV 92 MCH 32.7 MCHC 35.5 RDW 17.0 H Plt Count 268 Sodium 138.5 Potassium 4.1 Chloride 102 Carbon Dioxide 32 H Anion Gap 5 BUN 7 Creatinine 1.03 Est GFR ( Amer) > 60 Glucose 87 Calcium 8.5 Magnesium 2.0 C-Reactive Protein 23.8 H 09/05/20 09/05/20 09/05/20 10:29 15:30 15:30 Creatine Kinase 51 L Troponin I 0.015 0.012 09/05/20 09/05/20 09/06/20 23:01 23:01 03:26 Creatine Kinase 53 L 50 L Troponin I 0.014 09/06/20 03:26 Creatine Kinase Troponin I 0.013 Impressions: Abdomen/Pelvis CT 09/05/20 11:47 IMPRESSION: NO SIGNIFICANT OR ACUTE PROCESS IN THE ABDOMEN OR PELVIS. Chest X-Ray 09/09/20 00:00 IMPRESSION: NO ACUTE RADIOGRAPHIC FINDING IN THE CHEST. Lumbar Spine MRI 09/11/20 00:00 IMPRESSION: Limited study due to artifact from the indwelling hardware. Follow-up studies are recommended if clinical symptoms persist. Correlation with sed rate and other laboratory values is recommended. No focal epidural fluid collections are identified at this time. No abnormal enhancement is appreciated. There is moderate to severe central stenosis at L4-L5 with bilateral foraminal stenosis. This is significantly progressed when compared to prior MRI. Venous Doppler Study 09/13/20 00:00 IMPRESSION: Focal acute superficial venous thrombus in the cephalic vein at the right antecubital fossa. No DVT. Head CT 09/14/20 00:00 IMPRESSION: 1. No acute intracranial abnormality identified. This exam was performed according to our departmental dose-optimization program, which includes automated exposure control, adjustment of the mA and/or kV according to patient size and/or use of iterative reconstruction technique. PICC Line Insertion 09/19/20 00:00 IMPRESSION: SUCCESSFUL PLACEMENT OF A 5 FR DUAL LUMEN 39 CM PICC IN THE LEFT BASILIC VEIN. Renal Ultrasound 09/20/20 00:00 IMPRESSION: NORMAL RENAL AND BLADDER ULTRASOUND. Assessment and Plan - Diagnosis (1) Anemia of chronic disease Is this a current diagnosis for this admission?: Yes (2) Acute kidney injury Is this a current diagnosis for this admission?: Yes (3) Lwoyd-6-okdbmanmvwk deficiency Is this a current diagnosis for this admission?: Yes (4) Bipolar 1 disorder Is this a current diagnosis for this admission?: Yes (5) Chronic back pain greater than 3 months duration Is this a current diagnosis for this admission?: Yes (6) Chronically on opiate therapy Is this a current diagnosis for this admission?: Yes (7) DKA (diabetic ketoacidoses) Qualifiers: Diabetes mellitus type: type 2 Diabetes mellitus complication detail: with out coma Qualified Code(s): E11.10 - Type 2 diabetes mellitus with ketoac idosis without coma Is this a current diagnosis for this admission?: Yes (8) Hypokalemia Is this a current diagnosis for this admission?: Yes (9) MSSA bacteremia Is this a current diagnosis for this admission?: Yes (10) Type 2 diabetes mellitus Qualifiers: Diabetes mellitus assisted insulin use: without intermediate designer use Diabetes mellitus complication status: without complication Qualified Code(s): E11.9 - Type 2 diabetes mellitus without complications Is this a current diagnosis for this admission?: Yes - Plan Summary Summary: Mr. Gray Galvez is a 49-year-old man with DM2 and chronic back pain who initially presented on 09/05/[address] scan of abdomen and pelvis was unrevealing. He was admitted to the ICU and placed on IVF and insulin ggt; anion gap closed on 09/07 and he was transferred out of the ICU. He had a fever on 09/09 and blood cultures were drawn, showing MSSA from both sets of cultures. He has hardware in his back and was complaining of back pain (he does have chronic back pain for which he is on methadone). MRI of the lumbar spine showed worsening chronic changes with moderate to severe stenosis, but no epidural fluid collections. MSSA bacteremia in the setting of spinal hardware: Duration of therapy will be at least 4 weeks from negative blood cultures considering that he has orthopedic hardware. If echocardiogram is positive, duration of therapy will be extended to 6 weeks. No evidence of discitis or osteomyelitis per MRI. -ID consulted -continue Cefazolin 2g IV Q8H (end date: 10/11/2020) -PICC placed 09/19/2020 -check weekly CMP, CBC, ESR, CRP (last checked 09/23/2020, ESR/CRP are improving) -remove PICC line after completion of antibiotics Anemia of chronic disease: he has no signs or symptoms of active bleeding. He has normal iron, folate and B12. He was transfused 1 unit pRBCs this admission and has H/H has remained stable ever since. DIONE: due to dehydration and resolved with IVF. Hypomagnesemia: replete with IV and PO Mg. Hypersomnolence: he is much more awake and interactive after decreasing his methadone dosage. Back pain is controlled on current regimen. Chronic Low Back Pain -continue methadone 10 mg PO Q6H PRN -also has Lidoderm patches, Tylenol and Flexeril available DM2 (HbA1c 13.4%) -blood sugars are well controlled on SSI -restart metformin on discharge Bipolar Disorder, Seizure Disorder -continue Paxil, Trileptal, Lamictal Dispo: awaiting [facility] to be set up as he will require home infusion therapy. Nursing staff are actively teaching patient/ PICC line care. - Time Time Spent with patient: 35 or more minutes Anticipated Discharge Disposition: Home with Home Health Anticipated Discharge Timeframe: within 72 hours
[2020-09-23] MEDS: MELATONIN 5 MG TABLET PO SCH (21:33)
[2020-09-23] MEDS: PAROXETINE HCL 20 MG TABLET PO SCH (21:33)
[2020-09-23] MEDS: PHARMACY COMMUNICATION ORDER MC SCH (21:33)
[2020-09-23] MEDS: CYANOCOBALAMIN (VITAMIN B-12) 1,000 MCG TABLET PO SCH (21:34)
[2020-09-23] MEDS ORDERED: CEFAZOLIN INJ 1 GM VIAL ONE (21:42)
[2020-09-24] MEDS ORDERED: CEFAZOLIN INJ 1 GM VIAL ONE (05:10)
[2020-09-24] MEDS: PANTOPRAZOLE SODIUM 40 MG TABLET.DR PO SCH ×2 (06:24→17:33)
[2020-09-24] MEDS: HEPARIN SOD (PORCINE) 5,000 UNIT/ML 1 ML VIAL SUBCUT SCH ×3 (06:24→21:17)
[2020-09-24] MEDS: CEFAZOLIN SODIUM 2 GM in DEXTROSE 5%-WATER 100 ML IV SCH ×3 (06:24→21:17)
[2020-09-24] MEDS: ACETAMINOPHEN 325 MG TABLET PO SCH ×3 (06:24→21:18)
[2020-09-24] MEDS: INSULIN REG, HUMAN 100 UNIT/ML 3 ML VIAL (PYX) SUBCUT SCH (07:43)
[2020-09-24] MEDS: MAGNESIUM OXIDE 400 MG TABLET PO SCH ×3 (07:49→17:33)
[2020-09-24] MEDS: METHADONE HCL 10 MG TABLET PO PRN ×3 (07:49→21:18)
[2020-09-24] MEDS: CYCLOBENZAPRINE HCL 10 MG TABLET PO PRN ×2 (07:54→17:46)
[2020-09-24] MEDS: FLUTICASONE/VILANTEROL 200-25 MCG/DOSE IH SCH (10:54)
[2020-09-24] MEDS: OXCARBAZEPINE 150 MG TABLET PO SCH ×2 (10:55→17:33)
[2020-09-24] MEDS: LACTOBACILLUS ACIDOPHILUS 250 MG TAB PO SCH ×2 (10:55→17:34)
[2020-09-24] MEDS: LAMOTRIGINE 100 MG TABLET PO SCH ×2 (10:57→21:18)
[2020-09-24] MEDS: LORATADINE 10 MG TABLET PO SCH (10:57)
[2020-09-24] MEDS: ERGOCALCIFEROL (VITAMIN D2) 50000 UNIT (1.25 MG) CAPSULE PO SCH (11:36)
[2020-09-24] MEDS: NORMAL SALINE 10 ML SDV (AFTER EACH USE) IV PRN ×2 (11:37→16:03)
[2020-09-24] MEDS: METFORMIN HCL 500 MG TABLET PO SCH ×2 (11:37→17:32)
[2020-09-24] MEDS: LIDOCAINE 5% (700 MG) TRANSDERMAL ADH..PATCH TP SCH (11:39)
[2020-09-24] MEDS: NORMAL SALINE 10 ML SDV (SCHEDULED) IV SCH ×2 (11:51→21:19)
--- NOTE | 2020-09-24 14:42 | PDOC PROGRESS REPORT ---
Subjective Progress Note for:: 09/24/20 Subjective:: NAEO Reason For Visit: DKA (DIABETIC KETOACIDOSES) Physical Exam Vital Signs: Temp Pulse Resp BP Pulse Ox 97.9 F 71 16 135/83 H 96 09/24/20 11:30 09/24/20 11:30 09/24/20 11:30 09/24/20 11:30 09/24/20 11:30 Intake & Output 09/23/20 09/24/20 09/25/20 06:59 06:59 06:59 Intake Total 500 1260 880 Output Total 260 240 Balance 240 1020 880 Weight 117.7 kg Results Laboratory Results: 09/23/20 06:15 09/23/20 06:15 09/05/20 09/05/20 09/05/20 10:29 15:30 15:30 Creatine Kinase 51 L Troponin I 0.015 0.012 09/05/20 09/05/20 09/06/20 23:01 23:01 03:26 Creatine Kinase 53 L 50 L Troponin I 0.014 09/06/20 03:26 Creatine Kinase Troponin I 0.013 Impressions: Abdomen/Pelvis CT 09/05/20 11:47 IMPRESSION: NO SIGNIFICANT OR ACUTE PROCESS IN THE ABDOMEN OR PELVIS. Chest X-Ray 09/09/20 00:00 IMPRESSION: NO ACUTE RADIOGRAPHIC FINDING IN THE CHEST. Lumbar Spine MRI 09/11/20 00:00 IMPRESSION: Limited study due to artifact from the indwelling hardware. Follow-up studies are recommended if clinical symptoms persist. Correlation with sed rate and other laboratory values is recommended. No focal epidural fluid collections are identified at this time. No abnormal enhancement is appreciated. There is moderate to severe central stenosis at L4-L5 with bilateral foraminal stenosis. This is significantly progressed when compared to prior MRI. Venous Doppler Study 09/13/20 00:00 IMPRESSION: Focal acute superficial venous thrombus in the cephalic vein at the right antecubital fossa. No DVT. Head CT 09/14/20 00:00 IMPRESSION: 1. No acute intracranial abnormality identified. This exam was performed according to our departmental dose-optimization program, which includes automated exposure control, adjustment of the mA and/or kV according to patient size and/or use of iterative reconstruction technique. PICC Line Insertion 09/19/20 00:00 IMPRESSION: SUCCESSFUL PLACEMENT OF A 5 FR DUAL LUMEN 39 CM PICC IN THE LEFT BASILIC VEIN. Renal Ultrasound 09/20/20 00:00 IMPRESSION: NORMAL RENAL AND BLADDER ULTRASOUND. Assessment and Plan - Diagnosis (1) Anemia of chronic disease Is this a current diagnosis for this admission?: Yes (2) Acute kidney injury Is this a current diagnosis for this admission?: Yes (3) Zrirs-3-ljzuvfuhhzs deficiency Is this a current diagnosis for this admission?: Yes (4) Bipolar 1 disorder Is this a current diagnosis for this admission?: Yes (5) Chronic back pain greater than 3 months duration Is this a current diagnosis for this admission?: Yes (6) Chronically on opiate therapy Is this a current diagnosis for this admission?: Yes (7) DKA (diabetic ketoacidoses) Qualifiers: Diabetes mellitus type: type 2 Diabetes mellitus complication detail: without coma Qualified Code(s): E11.10 - Type 2 diabetes mellitus with ketoacidosis without coma Is this a current diagnosis for this admission?: Yes (8) Hypokalemia Is this a current diagnosis for this admission?: Yes (9) MSSA bacteremia Is this a current diagnosis for this admission?: Yes (10) Type 2 diabetes mellitus Qualifiers: Diabetes mellitus jail insulin use: without emg technician use Diabetes mellitus complication status: without complication Qualified Code(s): E11.9 - Type 2 diabetes mellitus without complications Is this a current diagnosis for this admission?: Yes - Plan Summary Summary: Mr. Gray Galvez is a 49-year-old man with DM2 and chronic back pain who initially presented on 09/05/[address] scan of abdomen and pelvis was unrevealing. He was admitted to the ICU and placed on IVF and insulin ggt; anion gap closed on 09/07 and he was transferred out of the ICU. He had a fever on 09/09 and blood cultures were drawn, showing MSSA from both sets of cultures. He has hardware in his back and was complaining of back pain (he does have chronic back pain for which he is on methadone). MRI of the lumbar spine showed worsening chronic changes with moderate to severe stenosis, but no epidural fluid collections. MSSA bacteremia in the setting of spinal hardware: Duration of therapy will be at least 4 weeks from negative blood cultures considering that he has orthopedic hardware. [place] showed no evidence of vegetation. No evidence of discitis or osteomyelitis per MRI. -ID consulted -continue Cefazolin 2g IV Q8H (end date: 10/11/2020) -PICC placed 09/19/2020 -check weekly CMP, CBC, ESR, CRP (last checked 09/23/2020, ESR/CRP are improving) -remove PICC line after completion of antibiotics Anemia of chronic disease: he has no signs or symptoms of active bleeding. He has normal iron, folate and B12. He was transfused 1 unit pRBCs this admission and has H/H has remained stable ever since. DIONE: due to dehydration and resolved with IVF. Hypomagnesemia: replete with IV and PO Mg. Hypersomnolence: he is much more awake and interactive after decreasing his methadone dosage. Back pain is controlled on current regimen. Chronic Low Back Pain -continue methadone 10 mg PO Q6H PRN -also has Lidoderm patches, Tylenol and Flexeril available DM2 (HbA1c 13.4%): blood sugars since resolution of DKA have been very well controlled (glucose 100-160) without any insulin therapy, despite the fact that he is eating well. I am not sure how it's possible that his HbA1c was so elevated on discharge, but I do not believe that he requires insulin therapy at this time. Will restart metformin today. Recheck HbA1c in 3 months. Bipolar Disorder, Seizure Disorder -continue Paxil, Trileptal, Lamictal Scrotal Candidiasis and Pruritis -apply Nystatin/triamcinolone cream QID to scrotum -Diflucan 100 mg x1 LUTS: longstanding for many years -start Flomax/Proscar Dispo: awaiting [facility] to be set up as he will require home infusion therapy. Nursing staff are actively teaching patient/ PICC line care. - Time Time Spent with patient: 35 or more minutes Anticipated Discharge Disposition: Home with Home Health Anticipated Discharge Timeframe: within 24 hours
[2020-09-24] MEDS ORDERED: FLUCONAZOLE 100 MG TABLET PO ONE (15:00)
[2020-09-24] MEDS: NYSTATIN/TRIAMCIN CREAM 15 GM TP SCH ×3 (17:34→21:20)
[2020-09-24] MEDS: MELATONIN 5 MG TABLET PO SCH (21:17)
[2020-09-24] MEDS: CYANOCOBALAMIN (VITAMIN B-12) 1,000 MCG TABLET PO SCH (21:18)
[2020-09-24] MEDS: PAROXETINE HCL 20 MG TABLET PO SCH (21:18)
[2020-09-24] MEDS: PHARMACY COMMUNICATION ORDER MC SCH (21:22)
[2020-09-24] MEDS ORDERED: TAMSULOSIN HCL 0.4 MG CAP.SR.24H PO SCH (22:00)
[2020-09-24] MEDS ORDERED: FINASTERIDE 5 MG TABLET PO SCH (22:00)
[2020-09-25] MEDS: METHADONE HCL 10 MG TABLET PO PRN ×2 (02:48→10:08)
[2020-09-25] MEDS: CYCLOBENZAPRINE HCL 10 MG TABLET PO PRN (02:48)
[2020-09-25] MEDS: HEPARIN SOD (PORCINE) 5,000 UNIT/ML 1 ML VIAL SUBCUT SCH (06:22)
[2020-09-25] MEDS: PANTOPRAZOLE SODIUM 40 MG TABLET.DR PO SCH (06:33)
[2020-09-25] MEDS: ACETAMINOPHEN 325 MG TABLET PO SCH (06:33)
[2020-09-25] MEDS: CEFAZOLIN SODIUM 2 GM in DEXTROSE 5%-WATER 100 ML IV SCH (06:33)
[2020-09-25] MEDS: METFORMIN HCL 500 MG TABLET PO SCH (07:45)
[2020-09-25] MEDS: MAGNESIUM OXIDE 400 MG TABLET PO SCH (07:45)
--- NOTE | 2020-09-25 09:30 | PDOC DISCHARGE SUMMARY ---
Impression - Admit/DC Date/PCP Admission Date/Primary Care Provider: 09/05/20 14:11 SALAS WRIGHT Discharge Date: 09/25/20 - Discharge Diagnosis (1) Anemia of chronic disease Is this a current diagnosis for this admission?: Yes (2) Acute kidney injury Is this a current diagnosis for this admission?: Yes (3) [id number] deficiency Is this a current diagnosis for this admission?: Yes (4) Bipolar 1 disorder Is this a current diagnosis for this admission?: Yes (5) Chronic back pain greater than 3 months duration Is this a current diagnosis for this admission?: Yes (6) Chronically on opiate therapy Is this a current diagnosis for this admission?: Yes (7) DKA (diabetic ketoacidoses) Is this a current diagnosis for this admission?: Yes (8) Hypokalemia Is this a current diagnosis for this admission?: Yes (9) MSSA bacteremia Is this a current diagnosis for this admission?: Yes (10) Type 2 diabetes mellitus Is this a current diagnosis for this admission?: Yes - Assessment Summary: Mr. Gray Osuna is a 49-year-old man with DM2 and chronic back pain who initially presented on 09/05/[address] scan of abdomen and pelvis was unrevealing. He was admitted to the ICU and placed on IVF and insulin ggt; anion gap closed on 09/07 and he was transferred out of the ICU. He had a fever on 09/09 and blood cultures were drawn, showing MSSA from both sets of cultures. He has hardware in his back and was complaining of back pain (although he does have chronic back pain for which he is on methadone). MRI of the lumbar spine showed worsening chronic changes with moderate to severe stenosis, but no epidural fluid collections. MSSA bacteremia in the setting of spinal hardware: Duration of therapy will be at least 4 weeks from negative blood cultures considering that he has orthopedic hardware. [place] showed no evidence of vegetation. No evidence of discitis or osteomyelitis per MRI. ID consulted and recommended to continue Cefazolin 2g IV Q8H (end date: 10/11/2020). PICC placed 09/19/2020 and he was discharged home on 09/25/2020 with home healthcare and home infusion therapy in place. * Please check weekly CMP, CBC, ESR, CRP (last checked 09/23/2020, ESR/CRP are improving). * Please remove PICC line after completion of antibiotics. Anemia of chronic disease: he has no signs or symptoms of active bleeding. He has normal iron, folate and B12. He was transfused 1 unit pRBCs this admission and has H/H has remained stable ever since. DIONE: due to dehydration and resolved with IVF. DM2 (HbA1c 13.4%): blood sugars since resolution of DKA have been very well controlled (glucose 100-160) without any insulin therapy, despite the fact that he is eating well. I am not sure how it's possible that his HbA1c was so elevated on discharge, but I do not believe that he requires insulin therapy at this time. Will restart metformin therapy. * Recheck HbA1c in 3 months. Bipolar Disorder, Seizure Disorder: continue Paxil, Trileptal, Lamictal. Scrotal Candidiasis and Pruritis: treated with Nystatin/triamcinolone cream QID to scrotum and Diflucan 100 mg PO x1. LUTS: longstanding for many years. Treated with Flomax/Proscar. - Additional Information Resuscitation Status: Full Code Discharge Diet: Diabetic Discharge Activity: Activity As Tolerated, Walk Frequently Referrals: SALAS WRIGHT MD [Primary Care Provider] - 09/26/20 2:30 pm Prescriptions: Tamsulosin HCl [Flomax 0.4 mg Cap.sr] 0.4 mg PO QHS #30 cap.sr.24h Metformin HCl [Glucophage 500 mg Tablet] 500 mg PO BIDACBS #60 tablet Lamotrigine [Lamictal 100 mg Tablet] 100 mg PO Q12 #60 tablet Lidocaine [Lidoderm 5% (700 mg) Transdermal Patch] 2 patch TP DAILY #60 adh..patch Finasteride [Proscar 5 mg Tablet] 5 mg PO QHS #30 tablet Home Medications: Esomeprazole Mag Trihydrate [Nexium] 40 mg PO QAM 11/13/11 Paroxetine HCl [Paxil 20 mg Tablet] 60 mg PO QHS #0 tablet 08/18/15 Cyclobenzaprine HCl [Flexeril 10 mg Tablet] 10 mg PO TIDP PRN #15 tab 07/07/18 Budesonide/Formoterol Fumarate [Symbicort HFA 160-4.5 mcg Inhaler 6 gm] 2 puff IH Q12 09/05/20 Dextroamphetamine/Amphetamine [Adderall 10 mg Tablet] 40 mg PO BID 09/05/20 Diclofenac Sodium 2 gm TP BID 09/05/20 Ergocalciferol (Vitamin D2) [Vitamin D2] 50,000 unit PO Q7D 09/05/20 Ibuprofen [Motrin 800 mg Tablet] 800 mg PO Q8HP PRN 09/05/20 Loratadine [Claritin 10 mg Tablet] 10 mg PO DAILY 09/05/20 Methadone HCl [Dolophine 10 mg Tablet] 20 mg PO Q6HP PRN 09/05/20 Oxcarbazepine 450 mg PO BID 09/05/20 Cefazolin Sodium [Ancef Inj 1 gm Vial] 2 gm IV Q8 vial 09/25/20 Finasteride [Proscar 5 mg Tablet] 5 mg PO QHS #30 tablet 09/25/20 Lactobacillus Acidophilus [Bacid 250 mg Tablet] 500 mg PO BID tab 09/25/20 Lamotrigine [Lamictal 100 mg Tablet] 100 mg PO Q12 #60 tablet 09/25/20 Lidocaine [Lidoderm 5% (700 mg) Transdermal Patch] 2 patch TP DAILY #60 adh..patch 09/25/20 Metformin HCl [Glucophage 500 mg Tablet] 500 mg PO BIDACBS #60 tablet 09/25/20 Tamsulosin HCl [Flomax 0.4 mg Cap.sr] 0.4 mg PO QHS #30 cap.sr.24h 09/25/20 History of Present Illiness History of Present Illness: GRAY OSUNA is a 49 year old male Physical Exam Vital Signs: Temp Pulse Resp BP Pulse Ox 98.1 F 81 16 139/82 H 96 09/25/20 07:55 09/25/20 07:55 09/25/20 07:55 09/25/20 07:55 09/25/20 07:55 Intake & Output 09/24/20 09/25/20 09/26/20 06:59 06:59 06:59 Intake Total 1260 1940 Output Total 240 Balance 1020 1940 Weight 117.7 kg Results Laboratory Results: WBC 3.5 10^3/uL (4.0-10.5) L 09/23/20 06:15 RBC 2.82 10^6/uL (4.35-5.55) L 09/23/20 06:15 Hgb 9.2 g/dL (13.5-17.0) L 09/23/20 06:15 Hct 26.0 % (37.9-51.0) L 09/23/20 06:15 MCV 92 fl (80-97) 09/23/20 06:15 MCH 32.7 pg (27.0-33.4) 09/23/20 06:15 MCHC 35.5 g/dL (32.0-36.0) 09/23/20 06:15 RDW 17.0 % (11.5-14.0) H 09/23/20 06:15 Plt Count 268 10^3/uL (150-450) 09/23/20 06:15 Lymph % (Auto) 19.1 % (13-45) 09/18/20 14:41 [place] % (Auto) 8.2 % (3-13) 09/18/20 14:41 Eos % (Auto) 1.0 % (0-6) 09/18/20 14:41 Baso % (Auto) 0.5 % (0-2) 09/18/20 14:41 Reticulocyte # 0.102 10^6/uL (0.028-0.122) 09/17/20 09:07 Absolute Neuts (auto) 4.4 10^3/uL (1.7-8.2) 09/18/20 14:41 Absolute Lymphs (auto) 1.2 10^3/uL (0.5-4.7) 09/18/20 14:41 Absolute Monos (auto) 0.5 10^3/uL (0.1-1.4) 09/18/20 14:41 Absolute Eos (auto) 0.1 10^3/uL (0.0-0.6) 09/18/20 14:41 Absolute Basos (auto) 0.0 10^3/uL (0.0-0.2) 09/18/20 14:41 Add Manual Diff Cancelled 09/17/20 07:10 Total Counted 100 09/12/20 05:36 Seg Neutrophils % 71.2 % (42-78) 09/18/20 14:41 Seg Neuts % (Manual) 73 % (42-78) 09/12/20 05:36 Band Neutrophils % 5 % (3-5) 09/12/20 05:36 Lymphocytes % (Manual) 15 % (13-45) 09/12/20 05:36 Atypical Lymphs % 1 % (0) 09/11/20 05:55 Monocytes % (Manual) 7 % (3-13) 09/12/20 05:36 Eosinophils % (Manual) 0 % (0-6) 09/12/20 05:36 Basophils % (Manual) 0 % (0-2) 09/12/20 05:36 Abs Neuts (Manual) 3.6 10^3/uL (1.7-8.2) 09/12/20 05:36 Abs Lymphs (Manual) 0.7 10^3/uL (0.5-4.7) 09/12/20 05:36 Abs Monocytes (Manual) 0.3 10^3/uL (0.1-1.4) 09/12/20 05:36 Absolute Eos (Manual) 0.0 10^3/uL (0.0-0.6) 09/12/20 05:36 Abs Basophils (Manual) 0.0 10^3/uL (0.0-0.2) 09/12/20 05:36 Toxic Granulation 1+ 09/12/20 05:36 Platelet Estimate Cancelled 09/17/20 07:10 Platelet Comment ADEQUATE 09/12/20 05:36 Polychromasia 1+ 09/11/20 05:55 Poikilocytosis SLIGHT 09/12/20 05:36 Ovalocytes SLIGHT 09/12/20 05:36 ESR 73 mm/hr (0-15) H 09/23/20 06:15 Retic Count (auto) 4.29 % (0.66-2.85) H 09/17/20 09:07 PT 15.7 SEC (11.4-15.4) H 09/18/20 14:41 INR 1.23 09/18/20 14:41 APTT 41.8 SEC (23.5-35.8) H 09/18/20 14:41 Carbonic Acid 1.14 mmol/L (1.05-1.35) 09/16/20 14:00 HCO3/H2CO3 Ratio 21:1 09/16/20 14:00 ABG pH 7.43 (7.35-7.45) 09/16/20 14:00 ABG pCO2 37.8 mmHg (35-45) 09/16/20 14:00 ABG pO2 96.1 mmHg (80-100) 09/16/20 14:00 ABG HCO3 24.6 mmol/L (20-24) H 09/16/20 14:00 ABG Total CO2 25.8 mmol/L (23-27) 09/16/20 14:00 ABG O2 Saturation 97.5 % (94-98) 09/16/20 14:00 ABG Base Excess 0.4 mmol/L 09/16/20 14:00 VBG pH 7.42 (7.30-7.42) 09/20/20 06:40 VBG pCO2 44.3 mmHg (35-63) 09/20/20 06:40 VBG HCO3 28.2 mmol/L (20-32) 09/20/20 06:40 VBG Base Excess 3.3 mmol/L 09/20/20 06:40 FiO2 ROOM AIR 09/16/20 14:00 Sodium 138.5 mmol/L (137-145) 09/23/20 06:15 Potassium 4.1 mmol/L (3.6-5.0) 09/23/20 06:15 Chloride 102 mmol/L (98-107) 09/23/20 06:15 Carbon Dioxide 32 mmol/L (22-30) H 09/23/20 06:15 Anion Gap 5 (5-19) 09/23/20 06:15 BUN 7 mg/dL (7-20) 09/23/20 06:15 Creatinine 1.03 mg/dL (0.52-1.25) 09/23/20 06:15 Est GFR ( Amer) > 60 (>60) 09/23/20 06:15 Est GFR (Non-Af Amer) Cancelled 09/14/20 02:17 Est GFR (MDRD) Non-Af > 60 (>60) 09/23/20 06:15 Glucose 87 mg/dL (75-110) 09/23/20 06:15 POC Glucose 110 mg/dL (70-110) 09/24/20 11:26 Hemoglobin A1c % 13.4 % (4.7-6.0) H 09/05/20 10:29 Lactic Acid 1.1 mmol/L (0.7-2.1) 09/05/20 19:26 Calcium 8.5 mg/dL (8.4-10.2) 09/23/20 06:15 Phosphorus 2.0 mg/dL (2.5-4.5) L 09/06/20 22:52 Magnesium 2.0 mg/dL (1.6-2.3) 09/23/20 06:15 Iron 82.7 ug/dL (49-181) 09/17/20 07:10 TIBC 229 ug/dL (250-450) L 09/17/20 07:10 % Saturation 36 % 09/17/20 07:10 Ferritin 756.00 ng/mL (17.9-464.0) H 09/17/20 07:10 Total Bilirubin 0.5 mg/dL (0.2-1.3) 09/18/20 14:41 Direct Bilirubin 0.1 mg/dL (0.0-0.4) 09/18/20 14:41 Neonat Total Bilirubin Not Reportable 09/18/20 14:41 Neonat Direct Bilirubin Not Reportable 09/18/20 14:41 Neonat Indirect Bili Not Reportable 09/18/20 14:41 AST 53 U/L (17-59) 09/18/20 14:41 ALT 10 U/L (<50) 09/18/20 14:41 Alkaline Phosphatase 85 U/L (38-126) 09/18/20 14:41 Creatine Kinase 50 U/L (55-170) L 09/06/20 03:26 Troponin I 0.013 ng/mL 09/06/20 03:26 C-Reactive Protein 23.8 mg/L (<10.0) H 09/23/20 06:15 Total Protein 5.1 g/dL (6.3-8.2) L 09/18/20 14:41 Albumin 2.5 g/dL (3.5-5.0) L 09/18/20 14:41 Triglycerides 761 mg/dL (<150) H 09/06/20 03:26 Cholesterol 265.24 mg/dL (0-200) H 09/06/20 03:26 LDL Cholesterol Direct 59 mg/dL (<100) 09/06/20 03:26 VLDL Cholesterol, Calc UNABLE TO CALCULATE 09/06/20 03:26 HDL Cholesterol 27 mg/dL (>40) L 09/06/20 03:26 Lipase 183.1 U/L (23-300) 09/05/20 10:29 EGFR Cancelled 09/14/20 02:17 Vitamin B12 423.0 pg/mL (239-931) 09/17/20 07:10 Folate 6.03 ng/mL (>2.76) 09/17/20 07:10 Urine Color STRAW 09/05/20 09:59 Urine Appearance CLEAR 09/05/20 09:59 Urine pH 6.0 (5.0-9.0) 09/05/20 09:59 Ur Specific [place] 1.027 09/05/20 09:59 Urine Protein NEGATIVE mg/dL (NEGATIVE) 09/05/20 09:59 Urine Glucose (UA) >=500 mg/dL (NEGATIVE) H 09/05/20 09:59 Urine Ketones 20 mg/dL (NEGATIVE) H 09/05/20 09:59 Urine Blood NEGATIVE (NEGATIVE) 09/05/20 09:59 Urine Nitrite NEGATIVE (NEGATIVE) 09/05/20 09:59 Urine Bilirubin NEGATIVE (NEGATIVE) 09/05/20 09:59 Urine Urobilinogen NEGATIVE mg/dL (<2.0) 09/05/20 09:59 Ur Leukocyte Esterase NEGATIVE (NEGATIVE) 09/05/20 09:59 Urine WBC (Auto) 0 /HPF 09/05/20 09:59 Squamous Epi Cells Auto <1 /HPF 09/05/20 09:59 Urine Mucus (Auto) RARE /LPF 09/05/20 09:59 Urine Ascorbic Acid NEGATIVE (NEGATIVE) 09/05/20 09:59 Time Trough Drawn 1338 09/11/20 13:38 Vancomycin Trough 11.7 ug/mL (5.0-20.0) 09/11/20 13:38 Urine Opiates Screen NEGATIVE 09/05/20 09:59 Urine Methadone Screen NEGATIVE 09/05/20 09:59 Ur Barbiturates Screen NEGATIVE 09/05/20 09:59 Ur Phencyclidine Scrn NEGATIVE 09/05/20 09:59 Ur Amphetamines Screen NEGATIVE 09/05/20 09:59 U Benzodiazepines Scrn NEGATIVE 09/05/20 09:59 Urine Cocaine Screen NEGATIVE 09/05/20 09:59 U Marijuana (THC) Screen UNCONFIRMED POSITIVE 09/05/20 09:59 SARS-CoV-2 (PCR) NEGATIVE (NEGATIVE) 09/11/20 10:10 Slides for Path Review Cancelled 09/17/20 07:10 Blood Type A POSITIVE 09/17/20 12:59 Antibody Screen NEGATIVE 09/17/20 12:59 Crossmatch See Detail 09/17/20 12:59 09/05/20 09/05/20 09/05/20 10:29 15:30 23:01 Troponin I 0.015 0.012 0.014 09/06/20 03:26 Troponin I 0.013 Impressions: Abdomen/Pelvis CT 09/05/20 11:47 IMPRESSION: NO SIGNIFICANT OR ACUTE PROCESS IN THE ABDOMEN OR PELVIS. Chest X-Ray 09/09/20 00:00 IMPRESSION: NO ACUTE RADIOGRAPHIC FINDING IN THE CHEST. Lumbar Spine MRI 09/11/20 00:00 IMPRESSION: Limited study due to artifact from the indwelling hardware. Follow-up studies are recommended if clinical symptoms persist. Correlation with sed rate and other laboratory values is recommended. No focal epidural fluid collections are identified at this time. No abnormal enhancement is appreciated. There is moderate to severe central stenosis at L4-L5 with bilateral foraminal stenosis. This is significantly progressed when compared to prior MRI. Venous Doppler Study 09/13/20 00:00 IMPRESSION: Focal acute superficial venous thrombus in the cephalic vein at the right antecubital fossa. No DVT. Head CT 09/14/20 00:00 IMPRESSION: 1. No acute intracranial abnormality identified. This exam was performed according to our departmental dose-optimization program, which includes automated exposure control, adjustment of the mA and/or kV according to patient size and/or use of iterative reconstruction technique. PICC Line Insertion 09/19/20 00:00 IMPRESSION: SUCCESSFUL PLACEMENT OF A 5 FR DUAL LUMEN 39 CM PICC IN THE LEFT BASILIC VEIN. Renal Ultrasound 09/20/20 00:00 IMPRESSION: NORMAL RENAL AND BLADDER ULTRASOUND. Stroke Is this a Stroke Patient?: No Acute Heart Failure Is this a Heart Failure Patient?: No
[2020-09-25] MEDS: LORATADINE 10 MG TABLET PO SCH (09:59)
[2020-09-25] MEDS: LACTOBACILLUS ACIDOPHILUS 250 MG TAB PO SCH (09:59)
[2020-09-25] MEDS: OXCARBAZEPINE 150 MG TABLET PO SCH (09:59)
[2020-09-25] MEDS: LAMOTRIGINE 100 MG TABLET PO SCH (09:59)
[2020-09-25] MEDS: FLUTICASONE/VILANTEROL 200-25 MCG/DOSE IH SCH (10:00)
[2020-09-25] MEDS: NORMAL SALINE 10 ML SDV (SCHEDULED) IV SCH (10:00)
[2020-09-25] MEDS: LIDOCAINE 5% (700 MG) TRANSDERMAL ADH..PATCH TP SCH (10:01)
[2020-09-25] MEDS: NYSTATIN/TRIAMCIN CREAM 15 GM TP SCH (10:10)
[2020-09-25 10:48] VITALS: BP 128/83
== END 2020-09-25 11:15 | disposition home health service (06) | DRG 638 ==
LOC: ER 09:17 → EH 14:11 → ICU 17:08 → 4S 09-08 15:47 → 4W 09-14 19:26
PROVIDERS: ADMIT Internal Medicine Critical Care Medicine; ATTEND Hospitalist
PROC: 02HV33Z Insertion of Infusion Device into Superior Vena Cava, Percutaneous Approach (ICD-10-PCS; principal; 2020-09-05)
PROC: B548ZZA Ultrasonography of Superior Vena Cava, Guidance (ICD-10-PCS; 2020-09-05)
PROC: 30233N1 Transfusion of Nonautologous Red Blood Cells into Peripheral Vein, Percutaneous Approach (ICD-10-PCS; 2020-09-19)
DX: E11.10 Type 2 diabetes mellitus with ketoacidosis without coma (principal); E87.1 Hypo-osmolality and hyponatremia; R78.81 Bacteremia; I82.611 Acute embolism and thrombosis of superficial veins of right upper extremity; N17.9 Acute kidney failure, unspecified; G89.29 Other chronic pain; K42.9 Umbilical hernia without obstruction or gangrene; E78.5 Hyperlipidemia, unspecified; J44.9 Chronic obstructive pulmonary disease, unspecified; B95.61 Methicillin susceptible Staphylococcus aureus infection as the cause of diseases classified elsewhere; K21.9 Gastro-esophageal reflux disease without esophagitis; F31.9 Bipolar disorder, unspecified; D64.9 Anemia, unspecified; M48.061 Spinal stenosis, lumbar region without neurogenic claudication; E87.6 Hypokalemia; E88.01 Alpha-1-antitrypsin deficiency; G40.909 Epilepsy, unspecified, not intractable, without status epilepticus; E83.42 Hypomagnesemia; M54.5 Low back pain; E86.0 Dehydration; Z79.891 Long term (current) use of opiate analgesic; L29.1 Pruritus scroti; B37.2 Candidiasis of skin and nail; Z96.60 Presence of unspecified orthopedic joint implant; Z20.828 Contact with and (suspected) exposure to other viral communicable diseases; Z87.891 Personal history of nicotine dependence; Z88.8 Allergy status to other drugs, medicaments and biological substances; Z88.0 Allergy status to penicillin; Z79.899 Other long term (current) drug therapy
CPT/HCPCS: 01922; 36415; 36430; 36573; 36600; 70450; 71046; 72158; 74176; 76770; 80048; 80053; 80061; 80076; 80202; 80307; 81001; 82550; 82607; 82728; 82746; 82803; 82962; 83036; 83540; 83550; 83605; 83690; 83735; 84100; 84484; 85025; 85027; 85045; 85610; 85652; 85730; 86140; 86850; 86900; 86901; 86920; 87040; 87070; 87077; 87086; 87088; 87150; 87186; 87635; 90471; 90686; 93005; 93010; 93306; 93312; 93325; 93971; 94660; 96361; 96374; 96375; 99221; 99291; A9576; C9113; C9803; G0008; J0690; J1642; J1644; J1815; J1940; J1956; J2060; J2270; J2405; J2543; J2550; J2704; J3230; J3370; J3475; J3480; J3490; J7030; J7042; J7050; J7060; P9016

== ENCOUNTER 2020-11-25 17:13 | Emergency (ER) | payer MEDICAID ==
--- NOTE | 2020-11-25 18:13 | ER Document Report ---
ED Medical Screen (RME) - General Chief Complaint: Shortness Of Breath Stated Complaint: ELEVATED BLOOD SUGAR Time Seen by Provider: 11/25/20 18:03 Primary Care Provider: SALAS WRIGHT MD [Primary Care Provider] - Follow up as needed TRAVEL OUTSIDE OF THE [place] IN LAST 30 DAYS: No - HPI Notes: Patient is a 49-year-old male with a hx of DM who presents with high blood sugar and shortness of breath. Patient state he took his blood sugar today, just [employer] WHE[employer], and it read as "high" which caused him to come in. He also reports cough, shortness of breath, and loss of taste and smell for the past four days. Patient started a z-jack yesterday. He also reports chest pain that is substernal and pressure-like. Patient is not currently on insulin. - Related Data Allergies/Adverse Reactions: bupropion [Bupropion] Adverse Reaction (Mild, Verified 09/05/20 09:50) eszopiclone [From Lunesta] Adverse Reaction (Mild, Verified 09/05/20 09:50) fluoxetine HCl [From Symbyax] Adverse Reaction (Mild, Verified 09/05/20 09:50) gabapentin [From Neurontin] Adverse Reaction (Mild, Verified 09/05/20 09:50) olanzapine [From Symbyax] Adverse Reaction (Mild, Verified 09/05/20 09:50) surgical tape Adverse Reaction (Uncoded 09/05/20 09:50) Home Medications: metformin. zofran. azithromycin Past Medical History - Social History Chew tobacco use (# tins/day): No Frequency of alcohol use: None Drug Abuse: Marijuana - Past Medical History Cardiac Medical History: Reports: Hx Hypercholesterolemia Pulmonary Medical History: Reports: Hx Bronchitis - chronic, Hx COPD Neurological Medical History: Reports: Hx Seizures Endocrine Medical History: Reports: Hx Diabetes Mellitus Type 1, Hx Diabetes Mellitus Type 2 Renal/ Medical History: Reports: Hx Kidney Stones. Denies: Hx Peritoneal Dialysis GI Medical History: Reports: Hx Gastroesophageal Reflux Disease Psychiatric Medical History: Reports: Hx Bipolar Disorder, Hx Depression Past Surgical History: Reports: Hx Cholecystectomy, Hx Orthopedic Surgery - spinal fusion 2001 - Immunizations Immunizations up to date: Yes Hx Diphtheria, Pertussis, Tetanus Vaccination: Yes Physical Exam - Vital signs Vitals: Temp Pulse Resp BP Pulse Ox 97.4 F 134 H 24 H 163/105 H 97 11/25/20 17:18 11/25/20 17:18 11/25/20 17:18 11/25/20 17:18 11/25/20 17:18 - Respiratory Respiratory status: No respiratory distress Breath sounds: Normal - Cardiovascular Rhythm: Regular Heart sounds: Normal auscultation Course - Re-evaluation Re-evalutation: I have greeted and performed a rapid initial assessment of this patient. A comprehensive ED assessment and evaluation of the patient, analysis of test results and completion of medical decision making process will be conducted by an additional ED providers. The patient was evaluated during the global COVID-19 pandemic and that diagnosis was suspected/considered upon their initial presentation. Their evaluation, treatment and testing was consistent with current guidelines for patients who present with complaints or symptoms that may be related to COVID-19. - Vital Signs Vital signs: Temp Pulse Resp BP Pulse Ox 97.4 F 134 H 24 H 163/105 H 97 11/25/20 17:18 11/25/20 17:18 11/25/20 17:18 11/25/20 17:18 11/25/20 17:18 Doctor's Discharge - Discharge Referrals: SALAS WRIGHT MD [Primary Care Provider] - Follow up as needed
[2020-11-25 18:37] LABS: ABSOLUTE BASOPHILS # (AUTO) 0.1 10^3/uL (0.0-0.2); ABSOLUTE LYMPHOCYTES (AUTO) 1.1 10^3/uL (0.5-4.7); ABSOLUTE MONOCYTES (AUTO) 0.6 10^3/uL (0.1-1.4); ABSOLUTE NEUT (AUTO) 11.4 10^3/uL (1.7-8.2); BASOPHILS % (AUTO) 0.5 % (0-2); HEMATOCRIT 39.9 % (37.9-51.0); HEMOGLOBIN 14.4 g/dL (13.5-17.0); LYMPHOCYTES % (AUTO) 8.2 % (13-45); MEAN CORPUSCULAR HEMOGLOBIN 32.9 pg (27.0-33.4); MEAN CORPUSCULAR HGB CONC 36.2 g/dL (32.0-36.0); MEAN CORPUSCULAR VOLUME 91 fl (80-97); MONOCYTES % (AUTO) 4.2 % (3-13); PLATELET COUNT 272 10^3/uL (150-450); RED BLOOD COUNT 4.39 10^6/uL (4.35-5.55); RED CELL DISTRIBUTION WIDTH 14.8 % (11.5-14.0); SEGMENTED NEUTROPHILS % (AUTO) 87.1 % (42-78); TOTAL CELLS COUNTED % (AUTO) 100 %
[2020-11-25 18:47] LABS: APPEARANCE,URINE CLEAR; BILIRUBIN,URINE NEGATIVE (NEGATIVE); COLOR,URINE STRAW; GLUCOSE, URINE >=500 mg/dL (NEGATIVE); KETONES,URINE NEGATIVE (NEGATIVE); LEUKOCYTE ESTERASE,URINE NEGATIVE (NEGATIVE); NITRITE,URINE NEGATIVE (NEGATIVE); PROTEIN,URINE NEGATIVE (NEGATIVE); URINE SPECIFIC GRAVITY 1.026; UROBILINOGEN,URINE NEGATIVE mg/dL (<2.0)
[2020-11-25 18:53] LABS: ALBUMIN 5.2 g/dL (3.5-5.0); ALKALINE PHOSPHATASE 82 U/L (38-126); ANION GAP 17 (5-19); ASPARTATE AMINO TRANSFERASE 83 U/L (17-59); BILIRUBIN,DIRECT 0.4 mg/dL (0.0-0.4); BLOOD UREA NITROGEN 21 mg/dL (7-20); CALCIUM 10.2 mg/dL (8.4-10.2); CARBON DIOXIDE 18 mmol/L (22-30); CHLORIDE 94 mmol/L (98-107); POTASSIUM 4.7 mmol/L (3.6-5.0); TOTAL PROTEIN 8.9 g/dL (6.3-8.2)
--- NOTE | 2020-11-25 18:55 | RADIOLOGY REPORT (SQ) ---
EXAM DESCRIPTION: CHEST SINGLE VIEW IMAGES COMPLETED DATE/TIME: 11/25/2020 6:31 pm REASON FOR STUDY: cough/shortness of breath COMPARISON: None. EXAM PARAMETERS: NUMBER OF VIEWS: One view. TECHNIQUE: Single frontal radiographic view of the chest acquired. RADIATION DOSE: NA LIMITATIONS: None. FINDINGS: LUNGS AND PLEURA: No opacities, masses or pneumothorax. No pleural effusion. MEDIASTINUM AND HILAR STRUCTURES: No masses. Contour normal. HEART AND VASCULAR STRUCTURES: Heart normal in size. Normal vasculature. BONES: No acute findings. HARDWARE: None in the chest. OTHER: No other significant finding. IMPRESSION: NO ACUTE RADIOGRAPHIC FINDING IN THE CHEST. TECHNICAL DOCUMENTATION: JOB ID: [id number] 2010 [employer]- All Rights Reserved Reading location - IP/workstation name: [email or web address]
[2020-11-25 19:03] LABS: GLUCOSE 615 mg/dL (75-110)
[2020-11-25 19:04] LABS: A TYPE INFLUENZA AG NEGATIVE (NEGATIVE); B INFLUENZA AG NEGATIVE (NEGATIVE)
[2020-11-25] MEDS ORDERED: NORMAL SALINE 1000 ML 1,000 ML IV ONE ×3 (19:05→22:44)
[2020-11-25] MEDS ORDERED: INSULIN REG, HUMAN 100 UNIT/ML 3 ML VIAL (PYX) IV ONE (22:16)
--- NOTE | 2020-11-25 22:33 | ER Document Report ---
ED General - General Chief Complaint: Shortness Of Breath Stated Complaint: ELEVATED BLOOD SUGAR Time Seen by Provider: 11/25/20 18:03 Primary Care Provider: SALAS WRIGHT MD [Primary Care Provider] - Follow up as needed Information source: Patient Notes: This 49-year-old male presents to the emergency department with a complaint of cough and congestion with elevated blood sugar. He notes he is a diabetic and has been compliant with medications, however over the past day or 2 he seems to do his blood sugar enzymes. He is given IV regular insulin and saline to help control his nausea and vomiting. TRAVEL OUTSIDE OF THE [place] IN LAST 30 DAYS: No - Related Data Allergies/Adverse Reactions: bupropion [Bupropion] Adverse Reaction (Mild, Verified 09/05/20 09:50) eszopiclone [From Lunesta] Adverse Reaction (Mild, Verified 09/05/20 09:50) fluoxetine HCl [From Symbyax] Adverse Reaction (Mild, Verified 09/05/20 09:50) gabapentin [From Neurontin] Adverse Reaction (Mild, Verified 09/05/20 09:50) olanzapine [From Symbyax] Adverse Reaction (Mild, Verified 09/05/20 09:50) surgical tape Adverse Reaction (Uncoded 09/05/20 09:50) Home Medications: metformin. zofran. azithromycin Past Medical History - General Cannot obtain history due to: Dementia - Social History Smoking Status: Former Smoker Chew tobacco use (# tins/day): No Frequency of alcohol use: None Drug Abuse: Marijuana Family History: None, Reviewed & Not Pertinent Patient has homicidal ideation: No - Past Medical History Cardiac Medical History: Reports: Hx Hypercholesterolemia Pulmonary Medical History: Reports: Hx Bronchitis - chronic, Hx COPD Neurological Medical History: Reports: Hx Seizures Endocrine Medical History: Reports: Hx Diabetes Mellitus Type 1, Hx Diabetes Mellitus Type 2 Renal/ Medical History: Reports: Hx Kidney Stones. Denies: Hx Peritoneal Dialysis GI Medical History: Reports: Hx Gastroesophageal Reflux Disease Psychiatric Medical History: Reports: Hx Bipolar Disorder, Hx Depression Past Surgical History: Reports: Hx Cholecystectomy, Hx Orthopedic Surgery - spinal fusion 2001 - Immunizations Immunizations up to date: Yes Hx Diphtheria, Pertussis, Tetanus Vaccination: Yes Review of Systems - Review of Systems Notes: Constitutional: + Weakness HENT: Negative for sore throat. Eyes: Negative for visual changes. Cardiovascular: Negative for chest pain. Respiratory: See HPI Gastrointestinal: Negative for abdominal pain, vomiting or diarrhea. Genitourinary: Negative for dysuria. Musculoskeletal: Negative for back pain. Skin: Negative for rash. Neurological: Negative for headaches, weakness or numbness. 10 point ROS negative except as marked above and in HPI. Physical Exam - Vital signs Vitals: Temp Pulse Resp BP Pulse Ox 97.4 F 134 H 24 H 163/105 H 97 11/25/20 17:18 11/25/20 17:18 11/25/20 17:18 11/25/20 17:18 11/25/20 17:18 - Notes Notes: PHYSICAL EXAMINATION: Physical Exam: General: Well-nourished well-developed in no acute distress HEENT: NC/AT, pupils equal round and reactive to light, MM moist,nares clear, oropharynx clear, airway patent Neck: supple, no adenopathy, no masses. Good range of motion Lungs: clear, no wheezing, no rales no rhonchi CVS: Regular rate and rhythm no murmur gallop or rub Abdomen: Soft, active, nontender, no masses, no hepatosplenomegaly Ext: No edema, clubbing or cyanosis. Neuro: Alert and responsive, moving all 4 extremities on command, cranial nerves intact, no focal findings Skin: Intact no open lesions, no rash PSYCH: Normal mood, normal affect. Course - Re-evaluation Re-evalutation: 11/25/20 22:39 Patient had received 2 L of normal saline a blood sugar is greater than 400, his coronavirus testing is pending, chest x-ray is clear. I discussed findings with the patient today and stated that we will give a small dose of regular Humulin and IV fluids to see if the two in combination can help control his symptoms. 11/26/20 01:15 Patient complains of back pain history of a lluvia placement in the past. Is presently on methadone, has not had a dose of medication since 1400 hrs. Patient also notes that he has been on insulin in the past, has had a large weight loss and was put on oral medications. He has also been on a sliding scale in the past and requesting regular insulin and a sliding scale plan if he is discharged. - Vital Signs Vital signs: Temp Pulse Resp BP Pulse Ox 98 F 80 16 129/88 H 96 11/25/20 23:58 11/26/20 00:38 11/26/20 00:38 11/26/20 00:38 11/26/20 00:38 - Laboratory Results Result Diagrams: 11/25/20 18:15 11/25/20 18:15 Laboratory Results Interpreted: 11/25/20 11/25/20 11/25/20 18:15 18:15 18:15 WBC 13.0 H MCHC 36.2 H RDW 14.8 H Lymph % (Auto) 8.2 L Absolute Neuts (auto) 11.4 H Seg Neutrophils % 87.1 H ABG pO2 Sodium 129.2 L Chloride 94 L Carbon Dioxide 18 L BUN 21 H Glucose 615 H* POC Glucose AST 83 H ALT 173 H Total Protein 8.9 H Albumin 5.2 H Urine Glucose (UA) >=500 H 11/25/20 11/25/20 11/25/20 20:38 21:21 23:38 WBC MCHC RDW Lymph % (Auto) Absolute Neuts (auto) Seg Neutrophils % ABG pO2 Sodium Chloride Carbon Dioxide BUN Glucose POC Glucose 471 H* 459 H* 397 H AST ALT Total Protein Albumin Urine Glucose (UA) 11/26/20 11/26/20 00:48 01:10 WBC MCHC RDW Lymph % (Auto) Absolute Neuts (auto) Seg Neutrophils % ABG pO2 101.2 H Sodium Chloride Carbon Dioxide BUN Glucose POC Glucose 390 H AST ALT Total Protein Albumin Urine Glucose (UA) 11/25/20 22:32 I have reviewed laboratory data and used this information for the treatment decisions regarding the patient. Critical Laboratory Results Reviewed: No Critical Results - Radiology Results Radiology Results Interpreted: 11/26/20 01:21 Chest X-Ray 11/25/20 18:13 IMPRESSION: NO ACUTE RADIOGRAPHIC FINDING IN THE CHEST. Critical Radiology Results Reviewed: No Critical Results - EKG Interpretation by [place] Rate: Tachycardia - EKG interpreted by Dr. Redding: Sinus tachycardia, rate 126, OK interval 152 ms QT interval 312 ms, normal axis, LAFB, Q waves in III,F, no acute ST or T wave abnormalities, no ischemic findings, compared to EKG dated 09/05/2020, no significant interval changes. Interpretation:Abnormal EKG Discharge - Discharge Clinical Impression: Hyponatremia Hyperglycemia due to type 2 diabetes mellitus Qualifiers: Diabetes mellitus senior living insulin use: without terminal operator use Qualified Code(s): E11.65 - Type 2 diabetes mellitus with hyperglycemia Condition: Stable Disposition: HOME, SELF-CARE Instructions: Diabetes ([facility]) Additional Instructions: You were seen in the emergency department tonight with a elevated blood sugar. Your blood gas revealed that you are not acidotic. Given that you have used regular insulin in the past I have given you a prescription for regular insulin with a sliding scale. Please monitor your sugar closely and use the insulin as directed. If you are having uncontrolled blood sugar or increasing symptoms please not hesitate to return to the emergency department for further evaluation and treatment. HOME CARE INSTRUCTIONS & INFORMATION: Thank you for choosing us for your medical needs. We hope you're satisfied with the care you received. After you leave, you must properly care for your problem and, at the same time, observe its progress. Any condition can change. Some illnesses can change rapidly over hours or days. If your condition worsens, return to the Emergency Department or see your physician promptly. ABOUT YOUR X-RAYS AND EKG'S: If you had an EKG or X-rays taken, they have been read by the Emergency Physician. The X-rays and EKG's will also be read by a Radiologist or It Technician within 24 hours. If discrepancies are noted, you will be notified by telephone. Please be certain the ED has a correct telephone number & address where you can be reached. Also, realize that some fractures or abnormalities do not show up on initial X-rays. If your symptoms continue, see your physician. ABOUT YOUR LABORATORY TEST: If you had laboratory tests, the results have been reviewed by the Emergency Physician. Some test results (for example cultures) may not be available for several days. You will be contacted if any test result shows you need additional treatment. Please be certain the ED has a correct telephone number and address where you can be reached. ABOUT YOUR MEDICATIONS: You will receive instructions on how to take your medicine on the prescription label you receive. Additional information may be p rovided by the Pharmacy. If you have questions afterwards, call the ED for clarification or further instructions. Some prescribed medications may cause drowsiness. Do not perform tasks such as driving a car or operating machinery without consulting your Pharmacist. If you feel you need a refill of pain medication, your condition will need re-evaluation. Please do not call for a refill of any medication. ABOUT YOUR SIGNATURE: Signature of this document acknowledges to followin. Understanding that you received emergency treatment and that you may be released before al medical problems are known or treated. Please be certain the ED has a correct phone number & address where you can be reached. 2. Acknowledgement that you will arrange for follow-up care as recommended. 3. Authorization for the Emergency Physician to provide information to your follow-up Physician in order to maximize your care. AT ANY TIME, IF YOUR SYMPTOMS CHANGE SIGNIFICANTLY OR WORSEN OR YOU DEVELOP NEW SYMPTOMS, RETURN TO THE EMERGENCY DEPARTMENT IMMEDIATELY FOR RE-EVALUATION. OUR GOAL IS TO PROVIDE EXCELLENT MEDICAL CARE! WE HOPE THAT WE HAVE MET YOUR EXPECTATIONS DURING YOUR EMERGENCY DEPARTMENT VISIT AND THAT YOU FEEL YOU HAVE RECEIVED EXCELLENT CARE! Prescriptions: Insulin Regular, Human [Humulin R (Pyxis) Insulin 100 Unit/ml 3Ml] 0 unit SUBCUT .SLD SCALE #10 ml Referrals: SALAS WRIGHT MD [Primary Care Provider] - Follow up as needed
--- NOTE | 2020-11-25 23:06 | EKG REPORT ---
SEVERITY:- ABNORMAL ECG - SINUS TACHYCARDIA LEFT POSTERIOR FASCICULAR BLOCK INFERIOR INFARCT, AGE INDETERMINATE : Confirmed by: Deedee Guzman 25-Nov-2020 23:06:34
[2020-11-26] MEDS ORDERED: HYDROMORPHONE HCL INJ/PF 2 MG/ML AMPULE IV ONE (01:07)
[2020-11-26 01:21] LABS: ARTERIAL BLOOD BASE EXCESS -2.6 mmol/L; ARTERIAL BLOOD H2CO3 1.11 mmol/L (1.05-1.35); ARTERIAL BLOOD HCO3 21.8 mmol/L (20-24); ARTERIAL BLOOD O2 SATURATION 97.6 % (94-98); ARTERIAL BLOOD PCO2 36.8 mmHg (35-45); ARTERIAL BLOOD PH 7.39 (7.35-7.45); ARTERIAL BLOOD PO2 101.2 mmHg (80-100)
[2020-11-26 01:26] LABS: ARTERIAL BLOOD FIO2 ROOM AIR
[2020-11-26 02:14] VITALS: BP 150/90
== END 2020-11-26 02:15 | disposition home or self-care (01) ==
LOC: ER 17:13
DX: E11.65 Type 2 diabetes mellitus with hyperglycemia (principal); E87.1 Hypo-osmolality and hyponatremia; U07.1 COVID-19; R00.0 Tachycardia, unspecified; R11.2 Nausea with vomiting, unspecified; R05 Cough; R53.1 Weakness; M54.9 Dorsalgia, unspecified; Z79.891 Long term (current) use of opiate analgesic; Z79.84 Long term (current) use of oral hypoglycemic drugs; Z79.899 Other long term (current) drug therapy; Z79.2 Long term (current) use of antibiotics; Z87.891 Personal history of nicotine dependence
CPT/HCPCS: 93005; 99285; 96361 ×2; 96374; 96375; 36415; 82010; 82962; 82803; 85025; 87635; 80053; 81001; 84484; 87804; 71045; 93010; 36600; J1170; J1815; J7030; C9803